=== PATIENT | male | born 1955 | race Hispanic/Latino ===

== ENCOUNTER 2017-03-13 00:49 | Emergency (ER) | payer SELFPAY ==
[~2017-03-13] VITALS: Ht 170.2 cm; Wt 79.4 kg
[~2017-03-13 00:49] MED LIST: BENTYL10 MG PO; MULTI-DAY VITA1 EACH PO; VASOTEC5 MG PO; ZOFRAN ODT4 MG PO
== END 2017-03-13 01:15 | disposition left against medical advice (07) ==
LOC: ER 00:49
DX: I10 Essential (primary) hypertension (principal)

== ENCOUNTER 2017-04-29 14:59 | Emergency (ER) | payer SELFPAY ==
[~2017-04-29] VITALS: Ht 170.2 cm; Wt 79.4 kg
--- OUTSIDE RECORDS SUMMARY | 2017-04-29 15:00 | XMS REPORT ---
[facility] Address Unknown Phone Unavailable Care Team Providers Care Account Classification Clerk Name Role Phone ANNAMARIE CHEW Unavailable Unavailable Problems This patient has no known problems. Allergies, Adverse Reactions, Alerts This patient has no known allergies or adverse reactions. Medications This patient has no known medications. Encounters Start Date/Time End Date/Time Encounter Type Admission Type Attending [facility] Facility Care Department Encounter ID 2017-03-26 15:49:19 2017-03-26 15:49:19 Outpatient [facility] [id number] 2017-03-18 13:21:18 2017-03-18 13:21:18 Outpatient [facility] [id number] 2017-03-18 12:52:06 2017-03-18 12:52:06 Outpatient [facility] [id number] 2017-03-18 00:00:00 2017-03-18 00:00:00 Outpatient [facility] [id number] 2017-03-16 00:00:00 2017-03-16 00:00:00 Outpatient [facility] [id number] 2017-03-16 00:00:00 2017-03-16 00:00:00 Outpatient [facility] [id number] 2017-03-15 15:54:00 2017-03-15 15:54:00 Outpatient [facility] [id number] 2017-01-18 00:00:00 2017-01-18 00:00:00 Outpatient [facility] [id number] 2016-11-09 11:56:42 2016-11-09 11:56:42 Outpatient [facility] [id number] 2016-11-09 10:06:21 2016-11-09 10:06:21 Outpatient [facility] [id number] 2016-10-22 13:16:24 2016-10-22 13:16:24 Outpatient [facility] [id number] 2016-10-13 00:00:00 2016-10-13 00:00:00 Outpatient [facility] [id number] 2016-09-30 13:26:17 2016-09-30 13:26:17 Outpatient [facility] [id number] 2016-09-30 13:07:05 2016-09-30 13:07:05 Outpatient [facility] [id number] Results Test Description Test Time Test Comments Text Results Atomic Results Result Comments CT BRAIN WO [place] [id number] [place] [id number] Patient Name: ÁNGEL EMMANUEL MR #: [id number] : 1955 Age/Sex: 61/M Req # : [id number] Adm Physician: Ordered by: ANNAMARIE CHEW MD Report # : [id number] Location: ER Room/Bed: Procedure: [id number] -[id number] CT/CT BRAIN WO Exam Date: 12/03/16 Exam Time: 0540 REPORT STATUS: Signed EXAMINATION: Head CT without contrast. HISTORY:Dizziness. COMPARISON:CT brain from 08/17/2015. TECHNIQUE: Multidetector axial images were obtained from the foramen magnum to the vertex without contrast. The images were reconstructed using brain and bone algorithms. Thin section brain images were reformatted into coronal and sagittal planes. Intravenous contrast: None IMAGE QUALITY: Acceptable. FINDINGS: Skull/scalp: No abnormality. Parenchyma: No abnormal density. No acute hemorrhage, mass or acute major vascular territorial infarct. Arteries: No density suggestive of thrombosis. Dural sinuses: No abnormal density suggestive of thrombosis. Ventricles: No hydrocephalus or displacement. Extra-axial spaces: No abnormal density. Brain volume: Mild generalized cerebral volume loss. Craniocervical junction: No mass, Chiari malformation, or basilar invagination. Sella: No mass. Paranasal/mastoid sinuses: Imaged portions unremarkable. IMPRESSION: No acute intracranial abnormality. No change since CT head from 08/17/2015. Signed by: Dr. Sabine Castillo M.D. on 12/03/2016 6:06 AM Dictated By: SABINE CASTILLO MD 5 Transcribed By: ROLAND on 12/03/16605 COPY TO: ANNAMARIE CHEW MD
[2017-04-29] MEDS ORDERED: MECLIZINE HCL 12.5 MG TAB PO ONE (15:45)
--- NOTE | 2017-04-29 16:49 | Diagnostic Imaging Report ---
Exam: Head CT without contrast History: Dizziness, headache Comparison studies: Head CT 12/03/2016 and 08/17/2015. Technique: Axial images were obtained from the skull base to the vertex. Coronal and sagittal images reconstructed from the axial data. Intravenous contrast: None Findings: Scalp: No abnormalities. Bones: No fractures, blastic or lytic lesions. Brain sulci: Appropriate for age. Ventricles: Normal in size and configuration. No hydrocephalus. Extra-axial spaces: No masses, no fluid collection. Parenchyma: No abnormal densities. No masses, hemorrhage, acute or chronic vascular insults. Sellar/suprasellar region: No abnormalities. Craniocervical junction: Patent foramen magnum. No Chiari one malformation. Incidental findings: Atherosclerotic calcifications in the carotid siphons. IMPRESSION: 1. No acute intracranial abnormalities. 2. No changes from the previous head CT of 12/03/2016. Signed by: Dr. Tobi Lorenzo M.D. on 04/29/2017 4:46 PM
[2017-04-29 16:50] LABS: BASOPHILS # (AUTO) 0.1 (0.0-0.1); BASOPHILS % 0.9 % (0.0-1.0); EOSINOPHILS # (AUTO) 0.1 (0.0-0.4); EOSINOPHILS % 0.8 % (0.0-6.0); HEMATOCRIT 50.7 % (38.2-49.6); HEMOGLOBIN 17.4 g/dL (14.0-18.0); LYMPHOCYTES # (AUTO) 2.3 (1.0-3.2); LYMPHOCYTES % 26.6 % (18.0-39.1); MEAN CORPUSCULAR HEMOGLOBIN 29.4 pg (28-32); MEAN CORPUSCULAR HGB CONC 34.3 g/dL (31-35); MEAN CORPUSCULAR VOLUME 85.8 fL (81-99); MONOCYTES # (AUTO) 0.5 (0.2-0.8); MONOCYTES % 5.9 % (4.4-11.3); NEUTROPHILS # (AUTO) 5.6 (2.1-6.9); NEUTROPHILS % 65.3 % (38.7-80.0); PLATELET COUNT 234 x10e3/uL (140-360); RED BLOOD COUNT 5.91 x10e6/uL (4.3-5.7); RED CELL DISTRIBUTION WIDTH 12.3 % (11.7-14.4)
[2017-04-29 16:51] LABS: BILIRUBIN,URINE NEGATIVE (NEGATIVE); CLARITY,URINE CLEAR (CLEAR); COLOR,URINE YELLOW (YELLOW); KETONES,URINE NEGATIVE (NEGATIVE); LEUKOCYTE ESTERASE ,URINE NEGATIVE (NEGATIVE); NITRITE,URINE NEGATIVE (NEGATIVE); PROTEIN,URINE DIPSTICK NEGATIVE (NEGATIVE); URINE UROBILINOGEN 0.2 mg/dL (0.2 - 1)
[2017-04-29 17:06] LABS: ALANINE AMINOTRANSFERASE 23 IU/L (0-55); ALBUMIN 4.5 g/dL (3.5-5.0); ALBUMIN/GLOBULIN RATIO 1.5 (0.8-2.0); ALKALINE PHOSPHATASE 82 IU/L (40-150); ANION GAP 12.2 mmol/L (8-16); BLOOD UREA NITROGEN 25 mg/dL (7-26); BUN/CREATININE RATIO 25 (6-25); CARBON DIOXIDE 30 mmol/L (22-29); CHLORIDE 102 mmol/L (98-107); CREATINE KINASE 40 IU/L (30-200); CREATININE, SERUM 1.02 mg/dL (0.72-1.25); EST GLOMERULAR FILTRATION RATE > 60 ML/MIN (60-); GLUCOSE 118 mg/dL (74-118); POTASSIUM 4.2 mmol/L (3.5-5.1); SODIUM 140 mmol/L (136-145)
--- NOTE | 2017-04-29 17:15 | Diagnostic Imaging Report ---
PROCEDURE: CHEST SINGLE (PORTABLE) COMPARISON: Patients [facility], , CHEST SINGLE (PORTABLE), 09/03/2015, 12:40. INDICATIONS: DIZZINESS FINDINGS: LUNGS: No consolidations or edema. PLEURA: No effusions or pneumothorax. HEART \T\ MEDIASTINUM: The heart is within normal size-limits. BONES \T\ SOFT TISSUES: No acute findings. CONCLUSION: No acute thoracic abnormality. Ashok Acosta D.O. Dictated by: Ashok Acosta D.O. on 04/29/2017 at 17:14 Electronically approved by: Ashok Acosta D.O. on 04/29/2017 at 17:14
[2017-04-29 18:04] VITALS: BP 115/65
== END 2017-04-29 18:12 | disposition home or self-care (01) ==
LOC: ER 14:59
DX: R42 Dizziness and giddiness (principal); H81.10 Benign paroxysmal vertigo, unspecified ear; I10 Essential (primary) hypertension
CPT/HCPCS: 36415; 70450; 71045; 80053; 81001; 82550; 82553; 83880; 84484; 85025; 93005; 99284

== ENCOUNTER 2017-09-24 14:15 | Emergency (ER) | payer MEDICARE ==
[~2017-09-24] VITALS: Ht 170.2 cm; Wt 79.4 kg
[2017-09-24] MEDS ORDERED: ASPIRIN 325 MG TAB PO ONE (14:30)
[2017-09-24 14:58] LABS: AMPHETAMINES SCREEN,URINE NEGATIVE (NEGATIVE); BENZODIAZEPINES SCREEN,URINE NEGATIVE (NEGATIVE); PHENCYCLIDINE SCREEN,URINE NEGATIVE (NEGATIVE)
--- NOTE | 2017-09-24 15:11 | Diagnostic Imaging Report ---
EXAMINATION: CHEST SINGLE (NOT PORTABLE) INDICATION: \S\chest pain \S\[id number] \S\1430 COMPARISON: Chest radiograph 04/29/2017 and 09/03/2015 FINDINGS: AP view TUBES and LINES: None. LUNGS: Lungs are moderately inflated. Mild bibasilar atelectasis. There is no evidence of pneumonia or pulmonary edema. PLEURA: No pleural effusion or pneumothorax. HEART AND MEDIASTINUM: The cardiomediastinal silhouette is unremarkable. BONES AND SOFT TISSUES: No acute osseous lesion. Soft tissues are unremarkable. UPPER ABDOMEN: No free air under the diaphragm. IMPRESSION: No acute thoracic abnormality. Signed by: DR. Marlo Cosme MD on 09/24/2017 3:07 PM
[2017-09-24 16:03] LABS: BASOPHILS # (AUTO) 0.1 (0.0-0.1); BASOPHILS % 0.8 % (0.0-1.0); EOSINOPHILS # (AUTO) 0.2 (0.0-0.4); EOSINOPHILS % 1.6 % (0.0-6.0); HEMATOCRIT 48.6 % (38.2-49.6); HEMOGLOBIN 16.5 g/dL (14.0-18.0); LYMPHOCYTES # (AUTO) 2.9 (1.0-3.2); LYMPHOCYTES % 31.7 % (18.0-39.1); MEAN CORPUSCULAR HEMOGLOBIN 30.2 pg (28-32); MONOCYTES # (AUTO) 0.5 (0.2-0.8); MONOCYTES % 5.7 % (4.4-11.3); NEUTROPHILS # (AUTO) 5.5 (2.1-6.9); NEUTROPHILS % 59.9 % (38.7-80.0); PLATELET COUNT 213 x10e3/uL (140-360); RED BLOOD COUNT 5.46 x10e6/uL (4.3-5.7); RED CELL DISTRIBUTION WIDTH 12.6 % (11.7-14.4)
[2017-09-24 16:23] LABS: ALANINE AMINOTRANSFERASE 21 IU/L (0-55); ALBUMIN 4.3 g/dL (3.5-5.0); ALBUMIN/GLOBULIN RATIO 1.3 (0.8-2.0); ALKALINE PHOSPHATASE 74 IU/L (40-150); AMYLASE 51 U/L (25-125); ANION GAP 15.2 mmol/L (8-16); BLOOD UREA NITROGEN 12 mg/dL (7-26); BUN/CREATININE RATIO 12 (6-25); CALCIUM 9.8 mg/dL (8.4-10.2); CARBON DIOXIDE 27 mmol/L (22-29); CHLORIDE 104 mmol/L (98-107); CREATINE KINASE 44 IU/L (30-200); CREATININE, SERUM 0.99 mg/dL (0.72-1.25); EST GLOMERULAR FILTRATION RATE > 60 ML/MIN (60-); GLUCOSE 107 mg/dL (74-118); LIPASE 14 U/L (8-78); POTASSIUM 4.2 mmol/L (3.5-5.1); SODIUM 142 mmol/L (136-145)
[2017-09-24 17:55] LABS: CREATINE KINASE 45 IU/L (30-200)
[2017-09-24 19:56] VITALS: BP 134/90
== END 2017-09-24 20:07 | disposition home or self-care (01) ==
LOC: ER 14:15
DX: R07.9 Chest pain, unspecified (principal); R06.00 Dyspnea, unspecified; R11.0 Nausea; R61 Generalized hyperhidrosis; I10 Essential (primary) hypertension
CPT/HCPCS: 36415; 71045; 80053; 80307; 82150; 82550; 82553; 83690; 84484; 85025; 93005; 99284

== ENCOUNTER 2017-11-07 10:07 | Emergency (ER) | payer SELFPAY ==
[~2017-11-07] VITALS: Ht 170.2 cm; Wt 79.4 kg
[2017-11-07] MEDS ORDERED: ASPIRIN 325 MG TAB PO ONE (10:45)
[2017-11-07 10:59] LABS: BASOPHILS # (AUTO) 0.1 (0.0-0.1); BASOPHILS % 0.9 % (0.0-1.0); EOSINOPHILS # (AUTO) 0.1 (0.0-0.4); EOSINOPHILS % 1.4 % (0.0-6.0); HEMATOCRIT 47.7 % (38.2-49.6); HEMOGLOBIN 16.1 g/dL (14.0-18.0); LYMPHOCYTES # (AUTO) 2.1 (1.0-3.2); LYMPHOCYTES % 37.3 % (18.0-39.1); MEAN CORPUSCULAR HEMOGLOBIN 29.8 pg (28-32); MEAN CORPUSCULAR HGB CONC 33.8 g/dL (31-35); MEAN CORPUSCULAR VOLUME 88.2 fL (81-99); MONOCYTES # (AUTO) 0.5 (0.2-0.8); NEUTROPHILS # (AUTO) 2.9 (2.1-6.9); PLATELET COUNT 192 x10e3/uL (140-360); RED BLOOD COUNT 5.41 x10e6/uL (4.3-5.7); RED CELL DISTRIBUTION WIDTH 12.9 % (11.7-14.4)
[2017-11-07 11:06] LABS: CLARITY,URINE CLEAR (CLEAR); COLOR,URINE YELLOW (YELLOW)
[2017-11-07 11:07] LABS: BILIRUBIN,URINE NEGATIVE (NEGATIVE); KETONES,URINE NEGATIVE (NEGATIVE); LEUKOCYTE ESTERASE ,URINE NEGATIVE (NEGATIVE); NITRITE,URINE NEGATIVE (NEGATIVE); PROTEIN,URINE DIPSTICK NEGATIVE (NEGATIVE); URINE UROBILINOGEN 0.2 mg/dL (0.2 - 1)
[2017-11-07 11:08] LABS: INR 0.9
[2017-11-07 11:09] LABS: BACTERIA,URINE RARE /HPF; EPITHELIAL CELLS,URINE RARE /LPF; RBC,URINE 0-5 /HPF (0-5); WBC,URINE (MAN) 0-5 /HPF (0-5)
[2017-11-07 11:17] LABS: ALANINE AMINOTRANSFERASE 25 IU/L (0-55); ALBUMIN 4.4 g/dL (3.5-5.0); ALBUMIN/GLOBULIN RATIO 1.3 (0.8-2.0); ALKALINE PHOSPHATASE 84 IU/L (40-150); AMYLASE 48 U/L (25-125); ANION GAP 13.7 mmol/L (8-16); BLOOD UREA NITROGEN 13 mg/dL (7-26); BUN/CREATININE RATIO 13 (6-25); CALCIUM 9.8 mg/dL (8.4-10.2); CARBON DIOXIDE 28 mmol/L (22-29); CHLORIDE 102 mmol/L (98-107); CREATINE KINASE 217 IU/L (30-200); EST GLOMERULAR FILTRATION RATE > 60 ML/MIN (60-); GLUCOSE 119 mg/dL (74-118); LIPASE 13 U/L (8-78); MAGNESIUM 2.2 MG/DL (1.3-2.1); POTASSIUM 3.7 mmol/L (3.5-5.1); SODIUM 140 mmol/L (136-145)
--- NOTE | 2017-11-07 11:32 | Diagnostic Imaging Report ---
EXAMINATION: CHEST 2 VIEWS INDICATION: Neck and shoulder pain on the left for 2 days \S\ORDER PLACED BY MD \S\[id number] \S\1100 \S\Y COMPARISON: Chest radiograph 09/24/2017, 09/03/2015, and 08/17/2015 FINDINGS: PA and lateral views TUBES and LINES: None. LUNGS: Lungs are well inflated. Left lower lobe/lingula linear airspace opacity with volume loss has progressed since 2016. There is no evidence of pneumonia or pulmonary edema. PLEURA: No pleural effusion or pneumothorax. HEART AND MEDIASTINUM: The cardiomediastinal silhouette is unremarkable. BONES AND SOFT TISSUES: No acute osseous lesion. Soft tissues are unremarkable. UPPER ABDOMEN: No free air under the diaphragm. Persistent mild elevation of the right hemidiaphragm. IMPRESSION: Progressive volume loss in the left lower lobe and lingula when compared to 2016. Given patient's symptoms, consider further evaluation with CT chest with IV contrast to exclude intraluminal lesion. Signed by: Dr. Meghan Parker M.D. on 11/07/2017 11:27 AM
--- NOTE | 2017-11-07 11:35 | Diagnostic Imaging Report ---
Cervical Spine, 6 views HISTORY: Pain. Cervical radiculopathy COMPARISON: None. FINDINGS: Limited sensitivity for detection of subtle fractures and ligamentous abnormalities. On the lateral view, the cervical spine is visualized from the skull base to . The alignment is normal. No acute displaced fracture involving the visualized cervical spine. Disc Spaces and Uncovertebral Joints: Unremarkable. Facets: The facet joints are unremarkable. IMPRESSION: No acute radiographic abnormality. Signed by: Dr. Meghan Parker M.D. on 11/07/2017 11:30 AM
[2017-11-07] MEDS ORDERED: SODIUM CHLORIDE 0.9% 100 ML 100 ML ONE (13:29)
[2017-11-07] MEDS ORDERED: IOPAMIDOL 370 MG/ML 200 ML INFUS..BTL INJ ONE (13:30)
--- NOTE | 2017-11-07 13:55 | Diagnostic Imaging Report ---
EXAM: CT Chest WITH contrast 11/07/2017 12:10 PM INDICATION: \S\rule out PE \S\[id number] \S\1240 COMPARISON: Chest radiograph 11/07/2017 and 08/17/2015 TECHNIQUE: Spiral CT images of the chest were performed from the lung apices through the level of the adrenal glands after the IV contrast administration. Thin section reconstructions were obtained with special concentration on the pulmonary arteries. IV CONTRAST: 100 mL of Isovue-370 ORAL CONTRAST: None COMPLICATIONS: None RADIATION DOSE: Total DLP: 524.7 mGy*cm Estimated effective dose: (DLP x 0.015 x size factor) mSv CTDIvol has been reviewed. It is below the limits set by the Radiation Protocol Committee (RPC). FINDINGS: LINES/ TUBES: None. PULMONARY ARTERIES: No filling defects are identified in the main, right or left pulmonary arteries to their segmental and subsegmental levels, to suggest pulmonary embolism. The main pulmonary artery is normal in size. LUNGS AND AIRWAYS: Diffuse peribronchial wall thickening in both lower lobes. Patchy groundglass opacities in both lower lobes without consolidations, suspicious pulmonary nodules or masses. No honeycombing. No endobronchial lesions. No bronchiectasis. PLEURA: The pleural spaces are clear. Predominant pleural fat in both posterior lower lobes measuring up to 1.9 cm in thickness on the left and 1.3 cm on the right suggestive of breakdown and extrapleural fat versus benign pleural lipomas. HEART AND MEDIASTINUM: Anterior mediastinal lipomatosis, benign finding. The thyroid gland is normal. Few noncalcified mediastinal and bilateral hilar enlarged lymph nodes. For example, there is a 1.5 cm subcarinal lymph node and a 1.1 cm right proximal hilar lymph node. The heart is normal in size. There is no pericardial effusion. The thoracic aorta is normal. UPPER ABDOMEN: Redundant perihepatic mesenteric fat. BONES: Degenerative changes of the thoracic spine. SOFT TISSUES: Unremarkable. IMPRESSION: 1. No pulmonary embolism. 2. CT findings suggestive of acute bronchitis. 3. Mediastinal and bilateral hilar lymphadenopathy may be reactive. 4. Recommend follow-up chest radiograph in [address] chest in 3 months to demonstrate resolution and exclude underlying pathology, including inflammatory processes such as sarcoidosis or a more chronic process such as interstitial lung disease. Signed by: Dr. Meghan Parker M.D. on 11/07/2017 1:50 PM
[2017-11-07] MEDS ORDERED: CYCLOBENZAPRINE5 MG PO (14:49)
[2017-11-07] MEDS ORDERED: AZITHROMYCIN250 MG PO (14:49)
== END 2017-11-07 15:30 | disposition home or self-care (01) ==
LOC: ER 10:07
DX: M54.2 Cervicalgia (principal); M54.12 Radiculopathy, cervical region; S16.1XXA Strain of muscle, fascia and tendon at neck level, initial encounter; J20.9 Acute bronchitis, unspecified; I10 Essential (primary) hypertension; D86.9 Sarcoidosis, unspecified; Z87.891 Personal history of nicotine dependence
CPT/HCPCS: 36415; 71046; 71260; 72050; 80053; 81001; 82150; 82550; 82553; 83690; 83735; 83880; 84484; 85025; 85610; 85730; 87086; 93005; 99284; Q9967

== ENCOUNTER 2018-02-11 20:40 | Emergency (ER) | payer SELFPAY ==
[~2018-02-11] VITALS: Ht 170.2 cm; Wt 79.4 kg
[~2018-02-11 20:40] MED LIST changes: +AZITHROMYCIN250 MG PO; +CYCLOBENZAPRINE5 MG PO
--- OUTSIDE RECORDS SUMMARY | 2018-02-11 20:43 | XMS REPORT | Clinical Summary ---
Author Author [facility] Organization [facility] Address Unknown Phone Unavailable Care Team Providers Care Associate Dean Of Women Name Role Phone Audra Benavides MD PCP Allergies Comments Active Allergy Reactions Severity Noted Date Penicillins Rash Low 05/30/2008 Medications End Date Status Medication Sig Dispensed Refills Start Date Active piroxicam (FELDENE) 10 mg Take 1 20 capsule 0 capsuleIndications: Pain capsule by 8 in joint, multiple sites mouth daily. Active ergocalciferol (VITAMIN Take 1 12 capsule 1 D2) 50,000 unit capsule by 8 capsuleIndications: mouth weekly. Vitamin D deficiency Active polyethylene glycol Add lukewarm 4000 mL 0 (GOLYTELY) [id number] drinking 8 -5.86 gram oral water to the solutionIndications: fill del (4 Positive fecal occult liters) and blood test shake. Drink as directed by your doctor.. Active lisinopril (PRINIVIL) 20 Take 1 tablet 90 tablet 1 mg tabletIndications: by mouth 8 Essential hypertension, daily. benign Active polyethylene glycol Add lukewarm 4000 mL 0 (GOLYTELY) 236-22.74-6.74 drinking 8 -5.86 gram oral water to the solutionIndications: fill del (4 Occult blood in stools liters) and shake. Drink as directed by your doctor.. Active polyethylene glycol Mix 17 grams 527 g 0 (MIRALAX) 17 gram/dose into 4 to 8 8 oral powderIndications: ounces of Occult blood in stools water, juice, soda, tea or coffee and drink as directed, one time a day. 05/25/2017 Discontinued ergocalciferol (VITAMIN Take 1 12 capsule 0 D2) 50,000 unit capsule by 7 capsuleIndications: mouth weekly. Vitamin D deficiency 05/21/2017 Discontinued lisinopril (PRINIVIL) 20 Take 1 tablet 30 tablet 2 mg tabletIndications: by mouth 7 Essential hypertension, daily. benign 06/21/2017 Discontinued ciclesonide (ZETONNA) 37 Use 1 [place] 6.1 g 1 mcg/actuation nasal HFA in each 7 inhalerIndications: nostril Allergic rhinitis, daily. unspecified chronicity, unspecified seasonality, unspecified trigger 05/25/2017 Discontinued lisinopril (PRINIVIL) 20 Take 1 tablet 30 tablet 2 mg tabletIndications: by mouth 8 Essential hypertension, daily. benign 10/13/2017 Discontinued lisinopril (PRINIVIL) 20 Take 1 tablet 90 tablet 1 mg tabletIndications: by mouth 8 Essential hypertension, daily. benign Active Problems Problem Noted Date Positive fecal occult blood test 05/25/2017 Syphilis, unspecified 11/06/2016 Essential hypertension, benign 09/30/2016 Prediabetes 07/09/2015 Chest pain 12/14/2012 Generalized abdominal pain 02/18/2012 GERD (gastroesophageal reflux disease) 01/05/2012 ED (erectile dysfunction) of non-organic origin 02/11/2011 Dyslipidemia 11/12/2010 Sprain, low back 10/08/2010 Sarcoidosis Overview: Echo WNL 07/25 PFTs-mild restrictive disease ct done Onychomycosis Encounters Care Team Description Date Type Specialty Marci Brooks NP Occult blood in stools (Primary Dx) 12/14/2017 Office Visit Gastroenterology Ang Galarza MD Encounter for vaccination (Primary Dx) 12/08/2017 Office Visit Pulmonology Esther Ramirez RN Colonoscopy 11/29/2017 Telephone Audi Kapadia MD Positive fecal occult blood test 11/21/2017 Orders Only Family Practice Audra Benavides MD 10/14/2017 Ancillary Radiology Procedure Audra Benavides MD Exposure to syphilis (Primary Dx); Essential hypertension, benign; Sarcoidosis 10/13/2017 Office Visit Family Practice Jacqueline Young Interpretation 10/13/2017 Telephone Denise Scruggs Utilization Management 07/26/2017 Telephone Audi Kapadia MD Cough (Primary Dx) 06/21/2017 Office Visit Family Practice Audi Kapadia MD Cough 06/09/2017 Ancillary Radiology Procedure Audi Kapadia MD Cough (Primary Dx) 06/09/2017 Office Visit Family Practice Audi Kapadia MD Positive fecal occult blood test (Primary Dx); Vitamin D deficiency; Essential hypertension, benign; Need for zoster vaccination 05/25/2017 Office Visit Family Practice Audi Kapadia MD Essential hypertension, benign 05/21/2017 Refill Family Practice Audi Kapadia MD Other Follow-up 03/24/2017 Telephone [facility] Practice 03/18/2017 Ancillary Radiology Procedure Audra Benavides MD Routine physical examination (Primary Dx); Screening for malignant neoplasm of colon; Pain in joint, multiple sites; Fecal occult blood test positive 03/15/2017 Office Visit Family Practice Igor Hood Interpretation 03/15/2017 Telephone after 02/10/2017 Immunizations Name Dates Previously Given Next Due Herpes Zoster Vaccine In 05/25/2017 (Deferred: Patient Refused) Clinic TDap (Tetanus Toxoid, 10/13/2017 (Deferred: Patient already had this Reduced Diphtheria Toxoid immunization - Received in 2013 per patient) And Acellular Pertussis, Absorbed) Zoster Vaccine (Shingrix) 10/13/2017 (Deferred: Vaccine Unavailable) Family History Medical History Relation Name Comments Other Brother PT HAS NO FAMILY HISTORY OF THESE DIAGNOSIS Relation Name Status Comments Brother Father Mother Social History Date Tobacco Use Types Packs/Day Years Used Quit: 05/05/2007 Former Smoker Cigarettes Smokeless Tobacco: Never Used Tobacco Cessation: Counseling Given: Yes Comments: quit 2008 Alcohol Use Drinks/Week oz/Week Comments No quit 2008 Sex Assigned at Date Recorded Not on file Industry Job Start Date Occupation Not on file Not on file Not on file Travel End Travel History Travel Start No recent travel history available. Last Filed Vital Signs Time Taken Vital Sign Reading 12/14/2017 10:10 AM CDT Blood Pressure 129/76 12/14/2017 10:10 AM CDT Pulse 67 12/14/2017 10:10 AM CDT Temperature 36.4 C (97.6 F) 12/14/2017 10:10 AM CDT Respiratory Rate 18 - Oxygen Saturation - - Inhaled Oxygen - Concentration 12/14/2017 10:10 AM CDT Weight 77.1 kg (169 lb 14.4 oz) 12/14/2017 10:10 AM CDT Height 170.2 cm (5' 7") 12/14/2017 10:10 AM CDT Body Mass Index 26.61 Plan of Treatment Care Team Description Date Type Specialty Audra Benavides MD [facility] [address] [id number] F/U HTN, meds refills. 02/16/2018 Office Visit Family Practice Health Maintenance Due Date Last Done Comments IMM Influenza Seasonal 11/15/2017Nov to April (>/=19 yrs) Colorectal Cancer Scrn 03/26/2018 03/26/2017, 05/05/2016, 06/18/2008 Annual (FIT/FOBT) Age 50 to 75 Goals Goal Patient Associated Recent Progress Patient-Stat Author Goal Type Problems ed? 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 Comments Procedure Name Priority Date/Time Associated Diagnosis XRAY CHEST 2 VIEWS Routine 10/14/2017 Sarcoidosis 9:20 AM CDT HEMOGLOBIN A1C Routine 10/14/2017 Essential hypertension, 9:08 AM CDT benign SYPHILIS MONITOR FOR Routine 10/14/2017 Exposure to syphilis TREATMENT 9:08 AM CDT LIVER PROFILE Routine 10/14/2017 Essential hypertension, 9:08 AM CDT benign BASIC METABOLIC PANEL Routine 10/14/2017 Essential hypertension, 9:08 AM CDT benign CBC/DIFF Routine 10/14/2017 Essential hypertension, 9:08 AM CDT benign UA CHEMISTRIES Routine 10/13/2017 Essential hypertension, 4:17 PM CDT benign XRAY CHEST 2 VIEWS Routine 06/09/2017 Cough 2:14 PM CDT OCCULT BLOOD ICT Routine 03/26/2017 Screening for malignant 6:00 AM CAGE CASHIER neoplasm of colon UA CHEMISTRIES Routine 03/18/2017 Routine physical 1:18 PM CAGE CASHIER examination VIT D, 25-HYDROXY Routine 03/18/2017 Routine physical 1:17 PM CAGE CASHIER examination LIVER PROFILE Routine 03/18/2017 Routine physical 1:17 PM CAGE CASHIER examination BASIC METABOLIC PANEL Routine 03/18/2017 Routine physical 1:17 PM CAGE CASHIER examination CBC/DIFF Routine 03/18/2017 Routine physical 1:17 PM CAGE CASHIER examination XRAY KNEE 1 OR 2 VIEWS Routine 03/18/2017 Pain in joint, multiple (LIMITED-AP/LAT) 1:05 PM CAGE CASHIER sites XRAY SHOULDER 2 VIEWS MIN Routine 03/18/2017 Pain in joint, multiple 1:05 PM CAGE CASHIER sites XRAY ELBOW 2 VIEWS MIN Routine 03/18/2017 Pain in joint, multiple 1:05 PM CAGE CASHIER sites HEMOCCULT KIT FOR Routine 03/15/2017 Screening for malignant SPECIMEN COLLECTION AT 4:24 PM CAGE CASHIER neoplasm of colon HOME after 02/10/2017 Results * XRAY CHEST 2 VIEWS (10/14/2017 9:20 AM CDT) Only the most recent of 2 results within the time period is included. Impressions Performed At IMPRESSION: [facility] No acute cardiac or pulmonary pathology is identified in the chest. Signed By: Afshin Crump MD, 10/14/2017 9:24 AM Narrative Performed At EXAM: XR CHEST 2 VIEWS [facility] DATE:10/14/2017 9:17 AM INDICATION: sarcoidosis chest Sarcoidosis COMPARISON: 06/09/2017 TECHNIQUE: PA and lateral views DISCUSSION: Lines/tubes/devices: None. Heart and mediastinum: The cardiac silhouette is within normal limits in its transverse diameter. The mediastinal contours are not widened. Lungs and pleura: The lung crook are clear of consolidation or effusion. Pulmonary vascularity is normal.The linear stranding evidently representing atelectasis in the left lower lung field has resolved when compared with a study done on 06/09/2017. Bones/soft tissues: There is a mild kyphotic curvature of the dorsal spine. Upper abdomen: Unremarkable Procedure Note Interface, Rad/Mammog In - 10/14/2017 9:29 AM CDT EXAM: XR CHEST 2 VIEWS DATE: 10/14/2017 9:17 AM INDICATION: sarcoidosis chest Sarcoidosis COMPARISON: 06/09/2017 TECHNIQUE: PA and lateral views DISCUSSION: Lines/tubes/devices: None. Heart and mediastinum: The cardiac silhouette is within normal limits in its transverse diameter. The mediastinal contours are not widened. Lungs and pleura: The lung crook are clear of consolidation or effusion. Pulmonary vascularity is normal.The linear stranding evidently representing atelectasis in the left lower lung field has resolved when compared with a study done on 06/09/2017. Bones/soft tissues: There is a mild kyphotic curvature of the dorsal spine. Upper abdomen: Unremarkable IMPRESSION IMPRESSION: No acute cardiac or pulmonary pathology is identified in the chest. Signed By: Afshin Crump MD, 10/14/2017 9:24 AM Performing Organization Address [facility] Phone Number SMS * HEMOGLOBIN A1C (10/14/2017 9:08 AM CDT) Hemoglobin A1c 5.9 4.3 - 6.1 % BT DIAGNOSTIC IMMUNOLOGY Est Average 122.6 mg/dL BT DIAGNOSTIC Gluc IMMUNOLOGY Specimen Blood Performing Organization Address [facility] Phone Number MISYS BT DIAGNOSTIC IMMUNOLOGY * SYPHILIS MONITOR FOR TREATMENT (10/14/2017 9:08 AM CDT) RPR Nonreactive NR Titer BT DIAGNOSTIC IMMUNOLOGY Specimen Blood Performing Organization Address [facility] Phone Number MISYS BT DIAGNOSTIC IMMUNOLOGY * LIVER PROFILE (10/14/2017 9:08 AM CDT) Only the most recent of 2 results within the time period is included. T Protein 6.6 6.0 - 8.3 g/dL BT MAIN-STATION 1 Albumin 4.4 4.2 - 5.5 g/dL BT MAIN-STATION 1 T Bilirubin 0.6 0.2 - 1.2 mg/dL BT MAIN-STATION 1 Alk Phos 76 34 - 104 U/L BT MAIN-STATION 1 AST 15 13 - 39 U/L BT MAIN-STATION 1 ALT 17 7 - 52 U/L BT MAIN-STATION 1 D Bilirubin 0.1 0.0 - 0.2 mg/dL BT MAIN-STATION 1 Specimen Blood Performing Organization Address City/State/Zipcode Phone Number MISYS BT MAIN-STATION 1 * CBC/DIFF (10/14/2017 9:08 AM CDT) Only the most recent of 2 results within the time period is included. WBC 6.0 4.5 - 12.0 K/uL BT MAIN-STATION 2 RBC 5.22 4.60 - 6.20 M/uL BT MAIN-STATION 2 Hemoglobin 15.7 14.0 - 18.0 g/dL BT MAIN-STATION 2 Hematocrit 47.4 40.0 - 54.0 % BT MAIN-STATION 2 MCV 91 82 - 92 fL BT MAIN-STATION 2 MCH 30.1 27.0 - 31.0 pg BT MAIN-STATION 2 MCHC 33.1 32.0 - 36.0 g/dL BT MAIN-STATION 2 RDW 40.7 35.1 - 43.9 fL BT MAIN-STATION 2 Platelet 202 150 - 400 K/uL BT MAIN-STATION 2 Mean Platelet 11.5 9.4 - 12.4 fL BT MAIN-STATION Volume 2 Percent NRBC 0.0 BT MAIN-STATION 2 Absolute NRBC 0.00 BT MAIN-STATION 2 Neutrophil 53.3 34.0 - 67.9 % BT MAIN-STATION 2 Lymphocyte 35.7 21.8 - 50.0 % BT MAIN-STATION 2 Monocyte 6.5 5.3 - 12.0 % BT MAIN-STATION 2 Eosinophil 2.8 0.8 - 5.0 % BT MAIN-STATION 2 Basophil 1.0 0.2 - 1.2 % BT MAIN-STATION 2 Pct Immat Gran 0.7 (H) 0.0 - 0.5 BT MAIN-STATION 2 Neutrophil, Abs 3.22 1.78 - 5.36 K/uL BT MAIN-STATION 2 Lymphocyte, Abs 2.15 1.32 - 3.57 K/uL BT MAIN-STATION 2 Monocyte, Abs 0.39 0.30 - 0.82 K/uL BT MAIN-STATION 2 Eosinophil, Abs 0.17 0.04 - 0.54 K/uL BT MAIN-STATION 2 Basophil, Abs 0.06 0.01 - 0.08 K/uL BT MAIN-STATION 2 Absol Immat 0.04 (H) 0.00 - 0.03 K/uL BT MAIN-STATION Gran 2 Specimen Blood Performing Organization Address City/[facility] Phone Number MISYS BT MAIN-STATION 2 * BASIC METABOLIC PANEL (10/14/2017 9:08 AM CDT) Only the most recent of 2 results within the time period is included. CO2 30 21 - 31 mmol/L BT MAIN-STATION 1 Chloride 104 98 - 107 mmol/L BT MAIN-STATION 1 Potassium 4.1 3.5 - 5.1 mmol/L BT MAIN-STATION 1 Sodium 144 136 - 145 mmol/L BT MAIN-STATION 1 Glucose 146 (H) 70 - 110 mg/dL BT MAIN-STATION 1 Urea Nitrogen 11 7 - 25 mg/dL BT MAIN-STATION 1 Creatinine 1.00 0.7 - 1.3 mg/dL BT MAIN-STATION 1 Anion Gap 10 BT MAIN-STATION 1 Calcium 9.2 8.6 - 10.3 mg/dL BT MAIN-STATION 1 GFR, Estimated >60 mL/min/1.73 m2 BT MAIN-STATION 1 GFR, Estim, >60 mL/min/1.73 m2 BT MAIN-STATION Afr-Am 1 Specimen Blood Performing Organization Address [facility] Phone Number MISYS BT MAIN-STATION 1 * UA CHEMISTRIES (10/13/2017 4:17 PM CDT) Only the most recent of 2 results within the time period is included. Color Yellow BT MAIN-STATION 3 Clarity Clear BT MAIN-STATION 3 Spec [place] 1.020 1.001 - 1.035 BT MAIN-STATION 3 pH 5.0 5 - 8 BT MAIN-STATION 3 Protein Negative NEG BT MAIN-STATION 3 Glucose Negative NEG BT MAIN-STATION 3 Ketone Negative NEG BT MAIN-STATION 3 Bilirubin Negative NEG BT MAIN-STATION 3 Nitrate Negative NEG BT MAIN-STATION 3 Urobilinogen <1.0 0.2 - 1.0 EU/dL BT MAIN-STATION 3 Leukocyte Negative NEG BT MAIN-STATION 3 Blood Negative NEG BT MAIN-STATION 3 Specimen Urine Performing Organization Address [facility] Phone Number Prosens[employer] MAIN-STATION 3 * OCCULT BLOOD ICT (03/26/2017 6:00 AM CAGE CASHIER) Pathologist [facility] Occult Blood Positive (A) NEG [facility] ICT Specimen Stool Performing Organization Address [facility] Phone Number [facility] * VIT D, 25-HYDROXY (03/18/2017 1:17 PM CAGE CASHIER) Vit D, 26.5 (L) 30 - 100 ng/mL BT DIAGNOSTIC 25-Hydroxy Comment: IMMUNOLOGY Vitamin D deficiency has been defined by the [place] of Medicine and Endocrine Society guideline as a level of serum 25-OH Vitamin D less than 20 ng/mL. The Endocrine Society further defines Vitamin D insufficiency as a level between 21 and 29 ng/mL and sufficiency as a level between 30 and 100 ng/mL. Performing Organization Address City/State/Zipcode Phone Number MISYS BT DIAGNOSTIC IMMUNOLOGY * XRAY KNEE 1 OR 2 VIEWS (LIMITED-AP/LAT) (03/18/2017 1:05 PM CAGE CASHIER) Impressions Performed At IMPRESSION: SMS 1.Small left knee joint effusion. 2.Otherwise, no acute, radiographic abnormality of the left knee is identified. Dictated By: Ralph Fernandez MD, 03/18/2017 3:01 PM I have reviewed the study and agree with the findings in this report. Signed By: Avinash Orosco MD, 03/18/2017 3:39 PM Narrative Performed At EXAM: XR LEFT KNEE 2 VIEW SMS DATE:03/18/2017 at 1257 hours. INDICATION: knee pain. Pain in joint, multiple sites COMPARISON: None available. TECHNIQUE:AP and lateral left knee radiographs. DISCUSSION: No acute fracture or malalignment is identified. Knee joint spaces are overall preserved on these non-weightbearing views. A small knee joint effusion is present. No acute soft tissue abnormality is identified. Procedure Note Interface, Rad/Mammog In - 03/18/2017 3:44 PM CAGE CASHIER EXAM: XR LEFT KNEE 2 VIEW DATE: 03/18/2017 at 1257 hours. INDICATION: knee pain. Pain in joint, multiple sites COMPARISON: None available. TECHNIQUE: AP and lateral left knee radiographs. DISCUSSION: No acute fracture or malalignment is identified. Knee joint spaces are overall preserved on these non-weightbearing views. A small knee joint effusion is present. No acute soft tissue abnormality is identified. IMPRESSION IMPRESSION: 1. Small left knee joint effusion. 2. Otherwise, no acute, radiographic abnormality of the left knee is identified. Dictated By: Ralph Fernandez MD, 03/18/2017 3:01 PM I have reviewed the study and agree with the findings in this report. Signed By: Avinash Orosco MD, 03/18/2017 3:39 PM Performing Organization Address [facility] Phone Number SMS * XRAY ELBOW 2 VIEWS MIN (03/18/2017 1:05 PM CAGE CASHIER) Impressions Performed At IMPRESSION: SMS No acute, radiographic abnormality of the left elbow. Dictated By: Ralph Fernandez MD, 03/18/2017 3:10 PM I have reviewed the study and agree with the findings in this report. Signed By: Avinash Orosco MD, 03/18/2017 3:40 PM Narrative Performed At EXAM: XR LEFT ELBOW 2 VIEWS SMS DATE:03/18/2017 at 1300 hours. INDICATION: 2-3 weeks elbow pain. Pain in joint, multiple sites COMPARISON: None available. TECHNIQUE: AP and lateral left elbow radiographs. DISCUSSION: No acute fracture or malalignment is identified. A benign-appearing, small ovoid calcification is seen medial to the medial epicondyle. This is nonspecific, however could represent sequela of a remote avulsion injury. No elbow joint effusion is detected. No acute soft tissue abnormality is identified. Procedure Note Interface, Rad/Mammog In - 03/18/2017 3:45 PM CAGE CASHIER EXAM: XR LEFT ELBOW 2 VIEWS DATE: 03/18/2017 at 1300 hours. INDICATION: 2-3 weeks elbow pain. Pain in joint, multiple sites COMPARISON: None available. TECHNIQUE: AP and lateral left elbow radiographs. DISCUSSION: No acute fracture or malalignment is identified. A benign-appearing, small ovoid calcification is seen medial to the medial epicondyle. This is nonspecific, however could represent sequela of a remote avulsion injury. No elbow joint effusion is detected. No acute soft tissue abnormality is identified. IMPRESSION IMPRESSION: No acute, radiographic abnormality of the left elbow. Dictated By: Ralph Fernandez MD, 03/18/2017 3:10 PM I have reviewed the study and agree with the findings in this report. Signed By: Avinash Orosco MD, 03/18/2017 3:40 PM Performing Organization Address [facility] Phone Number SMS * XRAY SHOULDER 2 VIEWS MIN (03/18/2017 1:05 PM CAGE CASHIER) Impressions Performed At IMPRESSION: SMS 1.Moderate left rotator cuff calcific tendinopathy. 2.No acute, radiographic abnormality of the left shoulder. Dictated By: Ralph Fernandez MD, 03/18/2017 3:06 PM I have reviewed the study and agree with the findings in this report. Signed By: Avinash Orosco MD, 03/18/2017 3:40 PM Narrative Performed At EXAM: XR LEFT SHOULDER 2 VIEWS SMS DATE: 03/18/2017 at 1304 hours. INDICATION: Shoulder pain for several weeks. Pain in joint, multiple sites. COMPARISON: None available. TECHNIQUE: AP internal rotation and external rotation views of the left shoulder. DISCUSSION: No acute fracture is identified. The acromioclavicular joint and glenohumeral joint remain aligned on these frontal-only views. There is no subacromial narrowing. No acute soft tissue abnormality is identified. Faint calcifications seen outline the rotator cuff tendons about the acromiohumeral interval. Procedure Note Interface, Rad/Mammog In - 03/18/2017 3:45 PM CAGE CASHIER EXAM: XR LEFT SHOULDER 2 VIEWS DATE: 03/18/2017 at 1304 hours. INDICATION: Shoulder pain for several weeks. Pain in joint, multiple sites. COMPARISON: None available. TECHNIQUE: AP internal rotation and external rotation views of the left shoulder. DISCUSSION: No acute fracture is identified. The acromioclavicular joint and glenohumeral joint remain aligned on these frontal-only views. There is no subacromial narrowing. No acute soft tissue abnormality is identified. Faint calcifications seen outline the rotator cuff tendons about the acromiohumeral interval. IMPRESSION IMPRESSION: 1. Moderate left rotator cuff calcific tendinopathy. 2. No acute, radiographic abnormality of the left shoulder. Dictated By: Ralph Fernandez MD, 03/18/2017 3:06 PM I have reviewed the study and agree with the findings in this report. Signed By: Avinash Orosco MD, 03/18/2017 3:40 PM Performing Organization Address City/State/Zipcode Phone Number SMS after 02/10/2017 Insurance Type Payer Benefit Subscriber ID Effective Phone Address Plan / Dates Group [employer] PLAN [employer] PLAN xxxxxx [id number] [id number] [place] [address]
[2018-02-11 22:11] LABS: CLARITY,URINE CLEAR (CLEAR); COLOR,URINE YELLOW (YELLOW)
[2018-02-11 22:13] LABS: BILIRUBIN,URINE NEGATIVE (NEGATIVE); KETONES,URINE NEGATIVE (NEGATIVE); LEUKOCYTE ESTERASE ,URINE NEGATIVE (NEGATIVE); NITRITE,URINE NEGATIVE (NEGATIVE); PROTEIN,URINE DIPSTICK NEGATIVE (NEGATIVE); URINE UROBILINOGEN 0.2 mg/dL (0.2 - 1)
[2018-02-11 22:27] LABS: MUCUS,URINE RARE (RARE); WBC,URINE (MAN) 0-5 /HPF (0-5)
--- NOTE | 2018-02-11 22:58 | Diagnostic Imaging Report ---
EXAM: CHEST 2 VIEWS, PA and lateral INDICATION: Back pain COMPARISON: PA and lateral view of the chest November 07, 2017 FINDINGS: LINES/TUBES: None LUNGS: No consolidations or edema. Stable scarring left lung base. PLEURA: No effusions or pneumothorax. HEART AND MEDIASTINUM: Normal size and contour. BONES AND SOFT TISSUES: No acute findings. IMPRESSION: No acute thoracic abnormality. Signed by: Dr. Binta Bennett M.D. on 02/11/2018 10:54 PM
--- NOTE | 2018-02-11 22:59 | Diagnostic Imaging Report ---
EXAM: LUMBAR SPINE, AP, lateral, bilateral oblique and coned lateral view INDICATION: Back pain COMPARISON: None FINDINGS: BONES: Five lumbar-type vertebral bodies. The alignment is within normal limits. No acute displaced fractures. No lytic or blastic lesions. DISCS: The disc-spaces are well-maintained. Mild anterior osteophytes L4 and L5. JOINTS: The facet joints and sacroiliac joints are unremarkable. SOFT TISSUES: Mild calcifications of the abdominal aorta. IMPRESSION: No acute lumbar spine radiographic findings. Mild degenerative changes L4/L5. Signed by: Dr. Binta Bennett M.D. on 02/11/2018 10:56 PM
== END 2018-02-12 04:39 | disposition home or self-care (01) ==
LOC: ER 20:40
DX: M54.5 Low back pain (principal); M47.896 Other spondylosis, lumbar region; I10 Essential (primary) hypertension; D86.9 Sarcoidosis, unspecified
CPT/HCPCS: 71046; 72110; 81001; 99283

== ENCOUNTER 2018-02-14 00:51 | Emergency (ER) | payer MEDICARE ==
[~2018-02-14] VITALS: Ht 170.2 cm; Wt 79.4 kg
[2018-02-14] MEDS ORDERED: ACETAMINOPHEN/CODEINE 300MG - 30MG TAB PO ONE (02:15)
[2018-02-14 03:02] VITALS: BP 106/69
== END 2018-02-14 02:30 | disposition home or self-care (01) ==
LOC: ER 00:51
DX: R05 Cough (principal); B34.9 Viral infection, unspecified; I10 Essential (primary) hypertension; D86.9 Sarcoidosis, unspecified
CPT/HCPCS: 99282

== ENCOUNTER 2018-08-06 00:36 | Emergency (ER) | payer SELFPAY ==
[~2018-08-06] VITALS: Ht 170.2 cm; Wt 79.4 kg
--- OUTSIDE RECORDS SUMMARY | 2018-08-06 00:40 | XMS REPORT | Clinical Summary ---
Author Author [facility] Organization [facility] Address Unknown Phone Unavailable Care Team Providers Care Code Enforcement Inspector Name Role Phone Audi Kapadia MD PCP Allergies Comments Active Allergy Reactions [...] weekly. Vitamin D deficiency Active polyethylene glycol Mix 17 grams 527 g 0 (MIRALAX) 17 gram/dose into 4 to 8 8 oral powderIndications: ounces of Occult blood in stools water, juice, soda, tea or coffee and drink as directed, one time a day. Active lisinopril (PRINIVIL) 20 Take 1 tablet 90 tablet 3 mg tabletIndications: by mouth 9 Essential hypertension, daily. benign Active fluocinonide (LIDEX) 0.05 Apply to 30 g 0 % ointmentIndications: affected area 9 Nummular eczema 2 times daily. 10/13/2017 Discontinued lisinopril (PRINIVIL) 20 Take 1 tablet 90 tablet 1 mg tabletIndications: by mouth 8 Essential hypertension, daily. benign 03/16/2018 Discontinued polyethylene glycol Add lukewarm 4000 mL 0 (GOLYTELY) 236-22.74-6.74 drinking 8 -5.86 gram oral water to the solutionIndications: fill del (4 Positive fecal occult liters) and blood test shake. Drink as directed by your doctor.. 02/16/2018 Discontinued lisinopril (PRINIVIL) 20 Take 1 tablet 90 tablet 1 mg tabletIndications: by mouth 8 Essential hypertension, daily. benign 03/16/2018 Discontinued polyethylene glycol Add lukewarm 4000 mL 0 (GOLYTELY) 236-22.74-6.74 drinking 8 -5.86 gram oral water to the solutionIndications: fill del (4 Occult blood in stools liters) and shake. Drink as directed by your doctor.. 03/22/2018 Discontinued acetaminophen with Take by 0 codeine (TYLENOL-CODEINE mouth. #3 OR)Indications: [place] baltazar tableta por via oral cada seis horas breanna necesario para dolor de tos 03/22/2018 Discontinued azithromycin (ZITHROMAX) Take by mouth 0 250 mg tabletIndications: daily Take 2 [place] 2 tabletas por via tablets by oral hoy, chriso tome 1 mouth on the tableta por da misael 4 first day, justice then take one tablet every day for the next 4 days . 02/16/2018 Discontinued lisinopril (PRINIVIL) 20 Take 1 tablet 90 tablet 1 mg tabletIndications: by mouth 9 Essential hypertension, daily. benign 03/16/2018 Discontinued polyethylene glycol take as 4000 mL 0 (GOLYTELY) 236-22.74-6.74 directed. 9 -5.86 gram oral solution Intended use : colonoscopy 03/28/2018 predniSONE (DELTASONE) 20 Take 1 tablet 10 tablet 0 mg tabletIndications: by mouth 2 9 Sarcoidosis times daily for 5 days. 03/24/2018 Discontinued fluocinonide (LIDEX) 0.05 Apply to 15 g 0 % ointmentIndications: affected area 9 Nummular eczema 2 times daily. Active Problems Problem Noted Date Positive fecal occult blood test 05/25/2017 Syphilis, unspecified 11/06/2016 Essential hypertension, benign 09/30/2016 Prediabetes 07/09/2015 Chest pain 12/14/2012 Generalized abdominal pain 02/18/2012 GERD (gastroesophageal reflux disease) 01/05/2012 ED (erectile dysfunction) of non-organic origin 02/11/2011 Dyslipidemia 11/12/2010 Sprain, low back 10/08/2010 Sarcoidosis Overview: Echo WNL 07/25 PFTs-mild restrictive disease ct done Onychomycosis Encounters Care Team Description Date Type Specialty Audi Kapadia MD Nummular eczema 03/24/2018 Refill Family Practice Marci Brokos NP 03/23/2018 Pre-Clinic Gastroenterology Review Audi Kapadia MD Sarcoidosis (Primary Dx); Nummular eczema 03/22/2018 Office Visit Family Practice 03/22/2018 Travel Raleigh Dukes MD Polyp of ascending colon, unspecified type (Primary Dx); Occult blood in stools 03/16/2018 Hospital Encounter 03/16/2018 Travel Audi Kapadia MD 03/08/2018 Hospital Gastroenterology Encounter Audra Benavides MD Screening for colon cancer 02/18/2018 Orders Only [facility] Practice Audra Benavides MD Need for influenza vaccination (Primary Dx); Essential hypertension, benign; Screening for colon cancer 02/16/2018 Office Visit Family Practice 02/16/2018 Travel Marci Brooks NP Occult blood in stools (Primary Dx) 12/14/2017 Office Visit Gastroenterology Ang Galarza MD Encounter for vaccination (Primary Dx) 12/08/2017 Office Visit Pulmonology Esther Ramirez, SANTOS Colonoscopy 11/29/2017 Telephone Audi Kapadia MD Positive fecal occult blood test 11/21/2017 Orders Only [facility] Practice Audra Benavides MD 10/14/2017 Ancillary Radiology Procedure Audra Benavides MD Exposure to syphilis (Primary Dx); Essential hypertension, benign; Sarcoidosis 10/13/2017 Office Visit Family Practice Jacqueline Marshall Interpretation 10/13/2017 Telephone after 08/05/2017 Immunizations Name Administration Dates Next Due Herpes Zoster Vaccine In 05/25/2017 (Deferred: Patient Refused) Clinic Influenza, 02/16/2018 (Deferred: Patient Refused) Vaccine<FLUCELVAX>(Multi- Dose) Tdap (Tetanus Toxoid, 10/13/2017 (Deferred: Patient already had [...] Cessation: Counseling Given: Yes Comments: quit 2008 Drinks/Week oz/Week Comments Alcohol Use quit 2008 No Food Insecurity Answer Date Recorded Within the past 12 months, you worried that your Never true 12/08/2017 food would run out before you got money to buy more. Within the past 12 months, the food you bought Never true 12/08/2017 just didn't last and you didn't have money to get more. Sex Assigned at Date Recorded Not on file Industry Job Start Date Occupation Not on file Not on file Not on file Travel End Travel History Travel Start No recent travel history available. Last Filed Vital Signs Reading Time Taken Comments Vital Sign 130/64 03/22/2018 11:05 AM SECOND TIME WORKER manual BP Blood Pressure 70 03/22/2018 10:20 AM SECOND TIME WORKER Pulse 36.6 C (97.8 F) 03/22/2018 10:20 AM SECOND TIME WORKER Temperature 20 03/22/2018 10:20 AM SECOND TIME WORKER Respiratory Rate 98% 03/16/2018 10:15 AM SECOND TIME WORKER Oxygen Saturation - - Inhaled Oxygen Concentration 75.3 kg (166 lb) 03/22/2018 10:20 AM SECOND TIME WORKER Weight 170.2 cm (5' 7") 03/22/2018 10:20 AM SECOND TIME WORKER Height 26 03/22/2018 10:20 AM SECOND TIME WORKER Body Mass Index Plan of Treatment Health Maintenance Due Date Last Done Comments IMM Influenza Seasonal 11/15/2018 Oct to April (>/=19 yrs) Colorectal Cancer Scrn 03/16/2019 03/16/2018, 02/18/2018, 03/26/2017, Annual (FIT/FOBT) Age 50 Additional history exists to 75 Goals Goal Patient Associated Recent Progress Patient-Stat Author Goal Type Problems ed? 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 Comments Procedure Name Priority Date/Time Associated Diagnosis COLONOSCOPY Routine 03/16/2018 Occult blood in stools 8:55 AM SECOND TIME WORKER [facility] Routine 03/16/2018 8:55 AM SECOND TIME WORKER FECAL OCCULT BLOOD Routine 02/18/2018 Screening for colon 2:48 PM SECOND TIME WORKER cancer POC BMP - IN LAB (STAT) Routine 02/16/2018 3:03 PM SECOND TIME WORKER CBC/DIFF Routine 02/16/2018 Essential hypertension, 2:46 PM SECOND TIME WORKER benign HEMOCCULT KIT FOR STAT 02/16/2018 Screening for colon SPECIMEN COLLECTION AT 2:23 PM SECOND TIME WORKER cancer HOME XRAY CHEST 2 VIEWS Routine 10/14/2017 Sarcoidosis 9:20 AM CDT HEMOGLOBIN A1C Routine 10/14/2017 Essential hypertension, 9:08 AM CDT benign SYPHILIS MONITOR FOR Routine 10/14/2017 Exposure to syphilis TREATMENT 9:08 AM CDT LIVER PROFILE Routine 10/14/2017 Essential hypertension, 9:08 AM CDT benign BASIC METABOLIC PANEL Routine 10/14/2017 Essential hypertension, 9:08 AM CDT benign CBC/DIFF Routine 10/14/2017 Essential hypertension, 9:08 AM CDT benign URINALYSIS Routine 10/13/2017 Essential hypertension, 4:17 PM CDT benign after 08/05/2017 Results * COLONOSCOPY (03/16/2018 8:55 AM SECOND TIME WORKER) TEXT Patient Name [facility] Date of 1955 Record Number [id number] Date/Time of Procedure 03/16/2018, 8:55:00 AM Endoscopist Raleigh Hartman MD./Fellow Rosalia Emery INDICATIONS FOR EXAMINATION:Oc cult blood in stool. Screening Colonoscopy. PROCEDURE PERFORMED: Colonoscopy - with biopsy, single or multiple Colonoscopy - MODERATE SEDATION SAME PHYS/QHP 5/>YRS Colonoscopy - MODERATE SEDATION SAME PHYS/QHP 5/>YRS INSTRUMENTS: [id number] LIMITATIONS:None TOLERANCE: Good VISUALIZATION:Good PREP QUALITY: Excellent BOSTON BOWEL PREPARATION SCALE (BBPS): Right Colon: 3 Transverse Colon: 3 Left Colon: 3 Total Score: 9 WITHDRAWL TIME:00:14:18 MEDICATIONS:Fentanyl 175 mcg IVP, Benadryl 50 mg IV, Versed 7 mg IVP ASA CLASSIFICATION:II ANALGESIA:Conscious sedation PROCEDURE TECHNIQUE: The patient was brought into the endoscopy suite and placed in the left lateral decubitus position.Heart rate and rhythm, blood oxygen saturation, and blood pressure were monitored.After adequate sedation, a digital rectal exam was performed.The colonoscope was introduced through the anus into the rectum and advanced to the cecum which was identified by the appendiceal orifice and ileocecal valve.The scope was then withdrawn and the mucosa carefully examined.With the scope in the rectum the tip was retroflexed to examine the anorectal junction.Air was aspirated from the distal colon and the scope removed. FINDINGS: Melanosis coli all throughout the colon. A diminutive polyp was seen in the cecum with a biopsy forceps.The ascending, hepatic flexure, transverse, splenic flexure, descending, sigmoid colon and rectum were otherwise normal. Retroflexion was done and showed internal hemorrhoids. ENDOSCOPIC DIAGNOSIS: 1. One diminutive polyp in the cecum. 2. Internal Hemorrhoids. RECOMMENDATIONS: 1. F/U biopsy results. 2. F/U with PCP. 3. Repeat colonoscopy in 5 years unless patient has any interval change in symptoms/signs. COMPLICATIONS: None. ESTIMATED BLOOD LOSS:None BLOOD PRODUCTS ADMINISTERED:None GRAFT/IMPLANT:None COMMENTS: CPT CODE: 15458 Colonoscopy, flexible; diagnostic, including collection of specimen(s) by brushing or washing, when performed (separate procedur 87630 Colonoscopy, flexible; with biopsy, single or multiple 25999 MODERATE SEDATION SAME PHYS/QHP 5/>YRS 17623 MODERATE SEDATION SAME PHYS/QHP 5/>YRS ICD CODE: R19.5 Other fecal abnormalities Z12.11 Special screening for malignant neoplasms of colon D12.0 Benign neoplasm of cecum K64.8 Other hemorrhoids I was present during the entire viewing portion of theprocedure.I personally reviewed the images and report prepared by the resident or fellow and agree with the findings. Procedure completed. This Procedure was electronically signed of on : 03/16/2018 9:57:32 AM By Raleigh Dukes Specimen Performing Organization Address City/State/Zipcode Phone Number SMS * [facility] (03/16/2018 8:55 AM SECOND TIME WORKER) HX FINAL COLON, CECUM POLYP, COPATH DIAGNOSIS BIOPSY: -- TUBULAR ADENOMA "I have personally reviewed the resident's preliminary interpretation and all specimen preparations and have personally issued this report." Specimen Narrative Performed At [facility] Date of 1955 Hospital Number [id number] Location [facility] Post Anesthesiology SURGICAL PATHOLOGY Collected:03/16/2018 08:55 Received: 03/16/2018 15:01 PATHOLOGIC DIAGNOSIS COLON, CECUM POLYP, BIOPSY: -- TUBULAR ADENOMA "I have personally reviewed the resident's preliminary interpretation and all specimen preparations and have personally issued this report." Pertinent Clinical Information Not provided. Tissue Submitted: Cecum polyp. Gross Description Container A:Received in formalin, labeled with the patient's name, medical record number and "CECUM POLYP" is an irregular, odell-brown tissue fragment measuring 0.4 x 0.3 x 0.3 cm.The specimen is filtered and submitted in toto in cassette A1. Kiah Duncan/[id number] Over Short And Damage Clerk Microscopic Description A microscopic examination has been performed and the findings are incorporated in the diagnosis above. The positive and negative controls for all histochemical and immunohistochemical stains, if performed for this case, have been reviewed and, unless otherwise noted, have been found to be appropriate. Electronically Signed Out JUAN DANIEL HORN Staff Pathologist Performing Organization Address City/State/[facility] Phone Number [place], [place] * OCCULT BLOOD ICT (02/18/2018 2:48 PM SECOND TIME WORKER) Occult Blood Negative NEG [facility] ICT Specimen Stool Performing Organization Address City/[facility] Phone Number [facility] * BMP POC (02/16/2018 3:03 PM SECOND TIME WORKER) TCO2 POC 31 21 - 32 mmol/L [facility] Chloride POC 99 98 - 107 mmol/L [facility] Potassium POC 4.6 3.50 - 5.10 mmol/L [facility] Sodium POC 138 136 - 145 mmol/L [facility] Glucose POC 92 74 - 106 mg/dL [facility] Urea Nitrogen 19 (H) 7 - 18 mg/dL [facility] POC Creatinine POC 0.9 0.6 - 1.3 mg/dL [facility] Ionized Calcium 1.14 (L) 1.15 - 1.29 mmol/L [facility] POC GFR, Estimated >60 mL/min/1.73 m2 [facility] GFR, Estim, >60 mL/min/1.73 m2 [facility] Afr-Am Specimen Performing Organization Address City/State/Zipcode Phone Number [facility] * CBC/DIFF (02/16/2018 2:46 PM SECOND TIME WORKER) Only the most recent of 2 results within the time period is included. WBC 7.3 4.5 - 12.0 K/uL [facility] 2 RBC 5.55 4.60 - 6.20 M/uL [facility] Hemoglobin 16.3 14.0 - 18.0 g/dL [facility] 2 Hematocrit 50.0 40.0 - 54.0 % [facility] 2 MCV 90 82 - 92 fL [facility] 2 MCH 29.4 27.0 - 31.0 pg [facility] 2 MCHC 32.6 32.0 - 36.0 g/dL [facility] 2 RDW 41.6 35.1 - 43.9 fL [facility] 2 Platelets 199 150 - 400 K/uL [facility] 2 Mean Platelet 11.2 9.4 - 12.4 fL [facility] Volume 2 Percent NRBC 0.0 [facility] 2 Absolute NRBC 0.00 [facility] 2 Neutrophils 58.9 34.0 - 67.9 % [facility] 2 Lymphs 30.0 21.8 - 50.0 % [facility] 2 Monocytes 8.5 5.3 - 12.0 % [facility] 2 Eos 1.5 0.8 - 5.0 % [facility] 2 Basos 0.8 0.2 - 1.2 % [facility] 2 Immature 0.3 0.0 - 0.5 [facility] Granulocytes 2 Neutrophils 4.28 1.78 - 5.36 K/uL [facility] (Absolute) 2 Lymphs 2.18 1.32 - 3.57 K/uL [facility] (Absolute) 2 Monocytes(Absol 0.62 0.30 - 0.82 K/uL [facility] geovanny) 2 Eos (Absolute) 0.11 0.04 - 0.54 K/uL [facility] 2 Baso (Absolute) 0.06 0.01 - 0.08 K/uL [facility] 2 Immature Grans 0.02 0.00 - 0.03 K/uL [facility] (Abs) 2 Specimen Blood Performing Organization Address [facility] Phone Number [facility] * XRAY CHEST 2 VIEWS (10/14/2017 9:20 AM CDT) Specimen Impressions Performed At IMPRESSION: SMS No acute cardiac or pulmonary pathology is identified in the chest. Signed By: Afshin Crump MD, 10/14/2017 9:24 AM Narrative Performed At EXAM: XR CHEST 2 VIEWS [facility] DATE:10/14/2017 9:17 AM INDICATION: sarcoidosis chest Sarcoidosis [...] MD, 10/14/2017 9:24 AM Performing Organization Address City/[facility] Phone Number SMS * HEMOGLOBIN A1C (10/14/2017 9:08 AM CDT) Hemoglobin A1c 5.9 4.3 - 6.1 % [facility] IMMUNOLOGY Est Average 122.6 mg/dL [facility] Gluc IMMUNOLOGY Specimen Blood Performing Organization Address [facility] Phone Number [facility] * SYPHILIS MONITOR FOR TREATMENT (10/14/2017 9:08 AM CDT) RPR Nonreactive NR Titer [facility] Specimen Blood Performing Organization Address [facility] Phone Number [facility] * LIVER PROFILE (10/14/2017 9:08 AM CDT) Protein, Total, 6.6 6.0 - 8.3 g/dL [facility] Serum 1 Albumin 4.4 4.2 - 5.5 g/dL [facility] 1 Bilirubin, 0.6 0.2 - 1.2 mg/dL [facility] Total 1 Alkaline 76 34 - 104 U/L [facility] Phosphatase, S 1 AST (SGOT) 15 13 - 39 U/L [facility] 1 ALT 17 7 - 52 U/L [facility] 1 D Bilirubin 0.1 0.0 - 0.2 mg/dL [facility] 1 Specimen Blood Performing Organization Address [facility] Phone Number [facility] * BASIC METABOLIC PANEL (10/14/2017 9:08 AM CDT) CO2 30 21 - 31 mmol/L [facility] 1 Chloride 104 98 - 107 mmol/L [facility] 1 Potassium 4.1 3.5 - 5.1 mmol/L [facility] 1 Sodium 144 136 - 145 mmol/L [facility] 1 Glucose 146 (H) 70 - 110 mg/dL [facility] 1 BUN 11 7 - 25 mg/dL [facility] 1 Creatinine 1.00 0.7 - 1.3 mg/dL [facility] 1 Anion Gap 10 [facility] 1 Calcium 9.2 8.6 - 10.3 mg/dL [facility] 1 GFR, Estimated >60 mL/min/1.73 m2 [facility] 1 eGFR If Africn >60 mL/min/1.73 m2 [facility] Am 1 Specimen Blood Performing Organization Address City/[facility] Phone Number [facility] * UA CHEMISTRIES (10/13/2017 4:17 PM CDT) Color Yellow [facility] 3 Clarity Clear [facility] 3 Specific 1.020 1.001 - 1.035 [facility] Tsaile 3 pH 5.0 5 - 8 [facility] 3 Protein Negative NEG [facility] 3 Glucose Negative NEG [facility] 3 Ketones Negative NEG [facility] 3 Bilirubin Negative NEG [facility] 3 Nitrate Negative NEG [facility] 3 Urobilinogen,Se <1.0 0.2 - 1.0 EU/dL [facility] mi-Qn 3 Leukocyte Negative NEG [facility] 3 Occult Blood Negative NEG [facility] 3 Specimen Urine Performing Organization Address [facility] Phone Number [facility] 3 after 08/05/2017 Insurance Type Payer Benefit Subscriber ID Effective Phone Address Plan / Dates Group [employer] PLAN [employer] PLAN xxxxxx 2018- [phone] [id number] [place] [address]
== END 2018-08-06 01:11 | disposition left against medical advice (07) ==
LOC: ER 00:36
DX: R20.2 Paresthesia of skin (principal); M54.12 Radiculopathy, cervical region

== ENCOUNTER 2019-03-24 23:03 | Emergency (ER) | payer MEDICARE ==
[~2019-03-24] VITALS: Ht 170.2 cm; Wt 79.4 kg
[2019-03-24] MEDS ORDERED: ASPIRIN 81 MG CHEW TAB PO ONE (23:30)
[2019-03-24 23:56] LABS: HEMATOCRIT 46.9 % (38.2-49.6); HEMOGLOBIN 16.1 g/dL (14.0-18.0); MEAN CORPUSCULAR HEMOGLOBIN 29.9 pg (28-32); MEAN CORPUSCULAR HGB CONC 34.3 g/dL (31-35); RED BLOOD COUNT 5.39 x10e6/uL (4.3-5.7); RED CELL DISTRIBUTION WIDTH 12.5 % (11.7-14.4)
[2019-03-24 23:57] LABS: LYMPHOCYTES % 38.7 % (18.0-39.1); NEUTROPHILS % 52.7 % (38.7-80.0); PLATELET COUNT 198 x10e3/uL (140-360)
[2019-03-24 23:58] LABS: BASOPHILS # (AUTO) 0.1 (0.0-0.1); BASOPHILS % 0.7 % (0.0-1.0); EOSINOPHILS # (AUTO) 0.1 (0.0-0.4); EOSINOPHILS % 1.1 % (0.0-6.0); LYMPHOCYTES # (AUTO) 3.6 (1.0-3.2); MONOCYTES # (AUTO) 0.6 (0.2-0.8); MONOCYTES % 6.5 % (4.4-11.3); NEUTROPHILS # (AUTO) 4.9 (2.1-6.9)
[2019-03-25 00:15] LABS: ALANINE AMINOTRANSFERASE 30 IU/L (0-55); ALBUMIN 4.4 g/dL (3.5-5.0); ALBUMIN/GLOBULIN RATIO 1.3 (0.8-2.0); ALKALINE PHOSPHATASE 88 IU/L (40-150); ANION GAP 20.1 mmol/L (8-16); BLOOD UREA NITROGEN 22 mg/dL (7-26); BUN/CREATININE RATIO 20 (6-25); CALCIUM 9.2 mg/dL (8.4-10.2); CARBON DIOXIDE 21 mmol/L (22-29); CHLORIDE 101 mmol/L (98-107); CREATINE KINASE 61 IU/L (30-200); CREATININE, SERUM 1.08 mg/dL (0.72-1.25); EST GLOMERULAR FILTRATION RATE > 60 ML/MIN (60-); GLUCOSE 109 mg/dL (74-118); POTASSIUM 4.1 mmol/L (3.5-5.1); SODIUM 138 mmol/L (136-145)
--- NOTE | 2019-03-25 01:29 | Diagnostic Imaging Report ---
EXAMINATION: CHEST SINGLE (PORTABLE) INDICATION: Chest pain. COMPARISON: 02/11/2018. FINDINGS: TUBES and LINES: None. LUNGS: Lungs are not well inflated. There are bibasilar atelectasis. There is no evidence of pneumonia or pulmonary edema. PLEURA: No pleural effusion or pneumothorax. HEART AND MEDIASTINUM: The cardiomediastinal silhouette is unremarkable. BONES AND SOFT TISSUES: No acute osseous lesion. Soft tissues are unremarkable. UPPER ABDOMEN: No free air under the diaphragm. IMPRESSION: No acute thoracic abnormality. Signed by: Dr. Zeferino Pak M.D. on 03/25/2019 1:26 AM
[2019-03-25 01:59] VITALS: BP 121/69
== END 2019-03-25 02:15 | disposition home or self-care (01) ==
LOC: ER 23:03
DX: R07.89 Other chest pain (principal); I10 Essential (primary) hypertension; Z87.891 Personal history of nicotine dependence
CPT/HCPCS: 36415; 71045; 80053; 82550; 82553; 83880; 84484; 85025; 93005; 99284

== ENCOUNTER 2019-10-20 12:47 | Emergency (ER) | payer MEDICARE ==
[~2019-10-20] VITALS: Ht 170.2 cm; Wt 79.4 kg
[2019-10-20] MEDS ORDERED: SODIUM CHLORIDE 0.9% 1000ML 1,000 ML IV STA ×2 (13:17→13:38)
[2019-10-20] MEDS ORDERED: MEROPENEM 1GM 100 ML IV ONE (13:30)
--- NOTE | 2019-10-20 14:03 | Diagnostic Imaging Report ---
TECHNIQUE: Frontal view of the chest. INDICATION: ^DIZZY ^[id number] ^[id number] COMPARISON: 03/25/2019 DISCUSSION: Limited evaluation due to portable technique. Lines and hardware: None Heart and mediastinum: Stable. Lungs and pleura: No focal airspace consolidation. No pleural effusion. No pneumothorax. Soft tissues and bones: No acute abnormality. IMPRESSION: Negative for acute intrathoracic process. Signed by: Rashaun Kumar MD on 10/20/2019 1:59 PM
--- NOTE | 2019-10-20 14:17 | Diagnostic Imaging Report ---
Examination: CT BRAIN WO CONTRAST History:^N ^DIZZY ^[id number] ^[id number]; Vertigo; dizziness Comparison studies:Head CT performed April 29, 2017 Technique: Axial images were obtained from the skull base to the vertex. Coronal and sagittal images reconstructed from the axial data. Dose modulation, iterative reconstruction, and/or weight based adjustment of the mA/kV was utilized to reduce the radiation dose to as low as reasonably achievable. Intravenous contrast: None Findings: Scalp: No abnormalities. Bones: No fractures, blastic or lytic lesions. Brain sulci: Appropriate for age. Ventricles: Normal in size and configuration. No hydrocephalus. Extra-axial space: No abnormalities. Parenchyma: No masses, hemorrhage, or acute or chronic cortical based vascular insults.. Sellar/suprasellar region: No abnormalities. Craniocervical junction: Patent foramen magnum. No Chiari one malformation. Incidental findings: None. Impression: No new or acute intracranial abnormalities when compared to prior head CT performed April 29, 2017. Signed by: Dr. Khadijah Melendez M.D. on 10/20/2019 2:14 PM
[2019-10-20 14:30] LABS: BASOPHILS % 0.6 % (0.0-1.0); EOSINOPHILS # (AUTO) 0.1 (0.0-0.4); EOSINOPHILS % 0.7 % (0.0-6.0); HEMATOCRIT 49.6 % (38.2-49.6); HEMOGLOBIN 16.6 g/dL (14.0-18.0); LYMPHOCYTES # (AUTO) 2.2 (1.0-3.2); LYMPHOCYTES % 32.4 % (18.0-39.1); MEAN CORPUSCULAR HEMOGLOBIN 29.1 pg (28-32); MEAN CORPUSCULAR HGB CONC 33.5 g/dL (31-35); MONOCYTES # (AUTO) 0.5 (0.2-0.8); MONOCYTES % 7.4 % (4.4-11.3); NEUTROPHILS # (AUTO) 3.9 (2.1-6.9); NEUTROPHILS % 58.6 % (38.7-80.0); PLATELET COUNT 216 x10e3/uL (140-360); RED CELL DISTRIBUTION WIDTH 12.5 % (11.7-14.4)
[2019-10-20 14:36] LABS: INR 0.84; PARTIAL THROMBOPLASTIN TIME 31.1 seconds (23.8-35.5); PROTHROMBIN TIME 11.9 seconds (11.9-14.5)
[2019-10-20 14:51] LABS: ALANINE AMINOTRANSFERASE 28 IU/L (0-55); ALBUMIN/GLOBULIN RATIO 1.8 (0.8-2.0); ALKALINE PHOSPHATASE 75 IU/L (40-150); ANION GAP 16.1 mmol/L (8-16); BLOOD UREA NITROGEN 13 mg/dL (7-26); BUN/CREATININE RATIO 13 (6-25); CALCIUM 9.8 mg/dL (8.4-10.2); CARBON DIOXIDE 27 mmol/L (22-29); CHLORIDE 101 mmol/L (98-107); CREATINE KINASE 38 IU/L (30-200); CREATININE, SERUM 1.03 mg/dL (0.72-1.25); EST GLOMERULAR FILTRATION RATE > 60 ML/MIN (60-); GLUCOSE 113 mg/dL (74-118); MAGNESIUM 2.3 MG/DL (1.3-2.1); POTASSIUM 4.1 mmol/L (3.5-5.1); SODIUM 140 mmol/L (136-145)
--- OUTSIDE RECORDS SUMMARY | 2019-10-20 15:02 | XMS REPORT | Continuity of Care Document ---
Author Author [facility] t Organization [facility] Address [address] [place] [address] Phone Unavailable Care Team Providers Care Java Technical Manager Name Role Phone NO, PCP PCP Unavailable Kris BOLAÑOS Attphys Unavailable Holly CHEW Attphys Unavailable JÚNIOR, Kris MARTINEZ Attphys Unavailable Rita DIAZ Attphys Unavailable HARJIT CHILDS Attphys Unavailable Payers Payer Name Policy Type Policy Number Effective Date Expiration Date S [facility] [place] & B [id number] [facility] Self Pay NA [facility] Problems Condition Name Condition Details Condition Category Status Onset Date Resolution Date Last Treatment Date Treating Clinician Comments Source Vertigo Vertigo Problem Active [facility] Allergies, Adverse Reactions, Alerts Allergy Name Allergy Type Status Severity Reaction(s) Onset Date Inacti ve Date Treating Clinician Comments Source penicillin Allergy to Substance Active 2018-08-06 00:00:00 [facility] Medications Ordered Medication Name Filled Medication Name Start Date Stop Da te Current Medication? Ordering Clinician Indication Dosage Frequency Signature (SIG) Comments Components Source Azithromycin (Z-Moe) 250 Mg Tablet Azithromycin (Z-Moe) 250 Mg Tablet 2017-11-07 00:00:00 Yes Lobo Cardoza Transmission Tester 1 As Directed [facility] Cyclobenzaprine Hcl (Flexeril) 5 Mg Tablet Cyclobenzap rine Hcl (Flexeril) 5 Mg Tablet 2017-11-07 00:00:00 Yes Lobo Cardoza Transmission Tester 5 Every 8 Hours as needed for Pain [facility] Dicyclomine Hcl (Bentyl) 10 Mg Capsule, 20 Mg Oral Dic yclomine Hcl (Bentyl) 10 Mg Capsule, 20 Mg Oral 2015-11-11 00:00:00 No 20 E very 6 Hours [facility] Enalapril Maleate (Vasotec) 5 Mg Tab, 5 Mg Oral Enalap ril Maleate (Vasotec) 5 Mg Tab, 5 Mg Oral 2015-11-11 00:00:00 No 5 Daily [facility] Multivitamin (Multi-Day Vitamins) 1 Each Tablet, 1 Tab Oral Multivitamin (Multi- Day Vitamins) 1 Each Tablet, 1 Tab Oral 2015-11-11 00:00:00 No 1 Daily [facility] Ondansetron (Zofran Odt) 4 Mg Tab.rapdis, 4 Mg Oral On dansetron (Zofran Odt) 4 Mg Tab.rapdis, 4 Mg Oral 2015-11-11 00:00:00 No 4 Every 8 Hours [facility] Procedures This patient has no known procedures. Encounters Start Date/Time End Date/Time [facility] Source 2019-03-24 23:03:00 2019-03-25 02:15:00 Departed Emergency Room 1 ANNAMARIE CHEW [facility] [id number] [facility] 2018-08-06 00:36:00 2018-08-06 01:11:00 Departed Emergency Room [facility] [id number] [facility] 2018-02-14 00:51:00 2018-02-14 02:30:00 Departed Emergency Room [facility] [id number] [facility] 2018-02-11 20:40:00 2018-02-12 04:39:00 Departed Emergency Room 1 ANNAMARIE CHEW [facility] [id number] [facility] 2017-11-07 10:07:00 2017-11-07 15:30:00 Departed Emergency Room 1 MICHELLE CALLEJAS [facility] [id number] [facility] 2017-09-24 14:15:00 2017-09-24 20:07:00 Departed Emergency Room 1 NICK DIAZ [facility] [id number] [facility] 2017-04-29 14:59:00 2017-04-29 18:12:00 Departed Emergency Room ER HARJIT CHILDS [facility] [id number] [facility] 2017-03-13 00:49:00 2017-03-13 01:15:00 Departed Emergency Room [facility] [id number] [facility] 2016-12-03 04:56:00 2016-12-03 06:44:00 Departed Emergency Room ER ANNAMARIE CHEW [facility] [id number] [facility] Results Test Description Test Time Test Comments Results Result Comments Source CT BRAIN WO 2019-10-20 14:12:00 [facility] [address] [address] Patient Name: ÁNGEL EMMANUEL MR #: [id number] : 1955 Age/Sex: 64/M Req #: [id number] Adm Physician: Ordered by: SVEN BOLAÑOS MD Report #: [id number] Location: ER Room/Bed: Procedure: [id number] CT/CT BRAIN WO Exam Date: 10/20/19 Exam Time: 1337 REPORT STATUS: Signed Examination: CT BRAIN WO CONTRAST History: N DIZZY [id number]; Vertigo; dizziness Comparison studies:Head CT performed April 29, 2017 Technique: Axial images were obtained from the skull base to the vertex. Coronal and sagittal images reconstructed from the axial data. Dose modulation, iterative reconstruction, and/or weight based adjustment of the mA/kV was utilized to reduce the radiation dose to as low as reasonably achievable. Intravenous contrast: None Findings: Scalp: No abnormalities. Bones: No fractures, blastic or lytic lesions. Brain sulci: Appropriate for age. Ventricles: Normal in size and configuration. No hydrocephalus. Extra-axial space: No abnormalities. Parenchyma: No masses, hemorrhage, or acute or chronic cortical based vascular insults.. Sellar/suprasellar region: No abnormalities. Craniocervical junction: Patent foramen magnum. No Chiari one malformation. Incidental findings: None. Impression: No new or acute intracranial abnormalities when compared to prior head CT performed April 29, 2017. Signed by: Dr. Caleb Melendez M.D. on 10/20/2019 2:14 PM Dictated By: CALEB MUIR MD 13 Transcribed By: ROLAND on 10/20/191413 COPY TO: SVEN BOLAÑOS MD CHEST SINGLE (PORTABLE) 2019-10-20 13:58:[address] [address] Patient Name: ÁNGEL EMMANUEL MR #: [id number] : 1955 Age/Sex: 64/M Req #: [id number] Adm Physician: Ordered by: SVEN BOLAÑOS MD Report #: [id number] Location: ER Room/Bed: Procedure: [id number] DX/CHEST SINGLE (PORTABLE) Exam Date: 10/20/19 Exam Time: 1345 REPORT STATUS: Signed TECHNIQUE: Frontal view of the chest. INDICATION: DIZZY 20191020 COMPARISON: 03/25/2019 DISCUSSION: Limited evaluation due to portable technique. Lines and hardware: None Heart and mediastinum: Stable. Lungs and pleura: No focal airspace consolidation. No pleural effusion. No pneumothorax. Soft tissues and bones: No acute abnormality. IMPRESSION: Negative for acute intrathoracic process. Signed by: Salinas Kumar MD on 10/20/2019 1:59 PM Dictated By: SALINAS KUMAR MD [id number] Transcribed By: ROLAND on 10/20/19 135 COPY TO: SVEN BOLAÑOS MD CHEST SINGLE (PORTABLE) 2019-03-25 01:25:[address] [address] Patient Name: ÁNGEL EMMANUEL MR #: [id number] : 1955 Age/Sex: 63/M Req #: [id number] Adm Physician: Ordered by: ANNAMARIE CHEW MD Report #: [id number] Location: ER Room/Bed: Procedure: [id number] DX/CHEST SINGLE (PORTABLE) Exam Date: 03/25/19 Exam Time: 0040 REPORT STATUS: Signed EXAMINATION: CHEST SINGLE (PORTABLE) INDICATION: Chest pain. COMPARISON: 02/11/2018. FINDINGS: TUBES and LINES: None. LUNGS: Lungs are not well inflated. There are bibasilar atelectasis. There is no evidence of pneumonia or pulmonary edema. PLEURA: No pleural effusion or pneumothorax. HEART AND MEDIASTINUM: The cardiomediastinal silhouette is unremarkable. BONES AND SOFT TISSUES: No acute osseous lesion. Soft tissues are unremarkable. UPPER ABDOMEN: No free air under the diaphragm. IMPRESSION: No acute thoracic abnormality. Signed by: Dr. Zeferino Strong M.D. on 03/25/2019 1:26 AM Dictated By: JESUS STRONG MD, MD 5 Transcribed By: ROLAND on 03/25/19125 COPY TO: ANNAMARIE CHEW MD Creatine Kinase MB 2019-03-25 00:25:00 Test Item Creatine Kinase MB (test code = 02084-9) 1.00 0-5.0 [facility] [id number] 00:25:00* Test Item Value Reference Range Interpretation Comments Troponin I (test code = CUL4418) < 0.001 0-0.300 [facility] Zvoac9777-27-00 00:20:00* Test Item Value Reference Range Interpretation Comments Sodium Level (test code = 2951-2) 138 136-145 [facility] CenterPotassium Qisso1793-72-59 00:20:00* Test Item Value Reference Range Interpretation Comments Potassium Level (test code = 2823-3) 4.1 3.5-5.1 [facility] CenterChloride Lwpof1479-13-86 00:20:00* Test Item Value Reference Range Interpretation Comments Chloride Level (test code = 2075-0) 101 98-107 [facility] CenterCarbon Dioxide Pgjpb9911-28-67 00:20:00* Test Item Value Reference Range Interpretation Comments Carbon Dioxide Level (test code = 2028-9) 21 22-29 L [facility] CenterAnion Pro3747-17-70 00:20:00* Test Item Value Reference Range Interpretation Comments Anion Gap (test code = 64538-0) 20.1 8-16 H [facility] CenterBlood Urea Mauljish3602-72-76 00:20:00* Test Item Value Reference Range Interpretation Comments Blood Urea Nitrogen (test code = 3094-0) 22 7-26 [facility] CenterCreatinine2020-02-08 00:20:00* Test Item Value Reference Range Interpretation Comments Creatinine (test code = 2160-0) 1.08 0.72-1.25 [facility] CenterBUN/Creatinine Nmqsy2321-24-21 00:20:00* Test Item Value Reference Range Interpretation Comments BUN/Creatinine Ratio (test code = 3097-3) 20 6-25 [facility] CenterEstimat Glomerular Filtration Rate 2019-03-25 00:20:00* Test Item Value Reference Range Interpretation Comments Estimat Glomerular Filtration Rate (test code = 929810118) > 60 >60 Ranges were taken from the National Kidney Disease Education Program and the [facility] literature.Reference ranges:60 or greater: Hckrml70-79 ( for 3 consecutive months): Chronic kidney disease 15 or less: Kidney failurePermian Regional Medical CenterGlucose Peahr2544-13-04 00:20:00* Test Item Value Reference Range Interpretation Comments Glucose Level (test code = IPF7909) 109 74-118 [facility] CenterCalcium Hocqi7466-98-67 00:20:00* Test Item Value Reference Range Interpretation Comments Calcium Level (test code = 98721-6) 9.2 8.4-10.2 [facility] CenterTotal Udqaotkcy4043-25-60 00:20:00* Test Item Value Reference Range Interpretation Comments Total Bilirubin (test code = 1975-2) 0.6 0.2-1.2 [facility] CenterAspartate Amino Transf (AST/SGOT) 2019-03-25 00:20:00* Test Item Value Reference Range Interpretation Comments Aspartate Amino Transf (AST/SGOT) (test code = Aspartate Amino Transf (AST/SGOT)) 25 5-34 [facility] CenterAlanine Aminotransferase (ALT/SGPT) 2019-03-25 00:20:00* Test Item Value Reference Range Interpretation Comments Alanine Aminotransferase (ALT/SGPT) (test code = 1742-6) 30 0-55 [facility] CenterTotal Bhmspgz9449-70-94 00:20:00* Test Item Value Reference Range Interpretation Comments Total Protein (test code = 2885-2) 7.7 6.5-8.1 [facility] CenterAlbumin2020-02-08 00:20:00* Test Item Value Reference Range Interpretation Comments Albumin (test code = 1751-7) 4.4 3.5-5.0 [facility] CenterGlobulin2020-02-08 00:20:00* Test Item Value Reference Range Interpretation Comments Globulin (test code = 19105-1) 3.3 2.3-3.5 [facility] CenterAlbumin/Globulin Qurhe6806-05-80 00:20:00 * Test Item Value Reference Range Interpretation Comments Albumin/Globulin Ratio (test code = 1759-0) 1.3 0.8-2.0 [facility] CenterAlkaline Cgtejrkusbc7467-37-90 00:20:00* Test Item Value Reference Range Interpretation Comments Alkaline Phosphatase (test code = 6768-6) 88 40-150 [facility] CenterCreatine Oovsmx8100-56-50 00:20:00* Test Item Value Reference Range Interpretation Comments Creatine Kinase (test code = 2157-6) 61 30-200 [facility] CenterWhite Blood Qldll6889-88-60 23:58:00* Test Item Value Reference Range Interpretation Comments White Blood Count (test code = 6690-2) 9.22 4.8-10.8 [facility] CenterRed Blood Hwzqs4341-46-02 23:58:00* Test Item Value Reference Range Interpretation Comments Red Blood Count (test code = 789-8) 5.39 4.3-5.7 [facility] CenterHemoglobin2020-02-07 23:58:00* Test Item Value Reference Range Interpretation Comments Hemoglobin (test code = 87545-8) 16.1 14.0-18.0 [facility] CenterHematocrit2020-02-07 23:58:00* Test Item Value Reference Range Interpretation Comments Hematocrit (test code = 4544-3) 46.9 38.2-49.6 [facility] CenterMean Corpuscular Sanxxy2017-94-76 23:58:00* Test Item Value Reference Range Interpretation Comments Mean Corpuscular Volume (test code = 787-2) 87.0 81-99 [facility] CenterMean Corpuscular Bblkoyglnx4302-63-44 23:58:00* Test Item Value Reference Range Interpretation Comments Mean Corpuscular Hemoglobin (test code = 785-6) 29.9 28-32 [facility] CenterMean Corpuscular Hemoglobin Concent 2019-03-24 23:58:00* Test Item Value Reference Range Interpretation Comments Mean Corpuscular Hemoglobin Concent (test code = 786-4) 34.3 31-35 [facility] CenterRed Cell Distribution Pjpct6029-13-88 23:58:00* Test Item Value Reference Range Interpretation Comments Red Cell Distribution Width (test code = 25516-9) 12.5 11.7 -14.4 [facility] CenterPlatelet Virja1204-26-26 23:58:00* Test Item Value Reference Range Interpretation Comments Platelet Count (test code = 777-3) 198 140-360 [facility] CenterNeutrophils (%) (Auto)2019-03-24 23:58:00 * Test Item Value Reference Range Interpretation Comments Neutrophils (%) (Auto) (test code = 29466-0) 52.7 38.7-80.0 [facility] CenterLymphocytes (%) (Auto)2019-03-24 23:58:00 * Test Item Value Reference Range Interpretation Comments Lymphocytes (%) (Auto) (test code = 736-9) 38.7 18.0-39.1 [facility] CenterMonocytes (%) (Auto)2019-03-24 23:58:00* Test Item Value Reference Range Interpretation Comments Monocytes (%) (Auto) (test code = 5905-5) 6.5 4.4-11.3 [facility] CenterEosinophils (%) (Auto)2019-03-24 23:58:00 * Test Item Value Reference Range Interpretation Comments Eosinophils (%) (Auto) (test code = 713-8) 1.1 0.0-6.0 [facility] CenterBasophils (%) (Auto)2019-03-24 23:58:00* Test Item Value Reference Range Interpretation Comments Basophils (%) (Auto) (test code = 706-2) 0.7 0.0-1.0 [facility] CenterIM GRANULOCYTES %2019-03-24 23:58:00* Test Item Value Reference Range Interpretation Comments IM GRANULOCYTES % (test code = IM GRANULOCYTES %) 0.3 0.0- 1.0 [facility] CenterNeutrophils # (Auto)2019-03-24 23:58:00* Test Item Value Reference Range Interpretation Comments Neutrophils # (Auto) (test code = 751-8) 4.9 2.1-6.9 [facility] CenterLymphocytes # (Auto)2019-03-24 23:58:00* Test Item Value Reference Range Interpretation Comments Lymphocytes # (Auto) (test code = 66016-7) 3.6 1.0-3.2 H [facility] CenterMonocytes # (Auto)2019-03-24 23:58:00* Test Item Value Reference Range Interpretation Comments Monocytes # (Auto) (test code = 742-7) 0.6 0.2-0.8 [facility] CenterEosinophils # (Auto)2019-03-24 23:58:00* Test Item Value Reference Range Interpretation Comments Eosinophils # (Auto) (test code = 711-2) 0.1 0.0-0.4 [facility] CenterBasophils # (Auto)2019-03-24 23:58:00* Test Item Value Reference Range Interpretation Comments Basophils # (Auto) (test code = 704-7) 0.1 0.0-0.1 [facility] CenterAbsolute Immature Granulocyte (auto 2019-03-24 23:58:00* Test Item Value Reference Range Interpretation Comments Absolute Immature Granulocyte (auto (jadiel t code = Absolute Immature Granulocyte (auto) 0.03 0-0.1 [facility] CenterCHEST 2 NDXWV3673-97-36 22:54:[address] [address] Patient Name: ÁNGEL EMMANUEL MR #: [id number] : 1955 Age/Sex: 62/M Req #: [id number] Adm Physician: Ordered by: ANNAMARIE CHEW MD Report #: [id number] Location: ER Room/Bed: Procedure: 1228-0 085 DX/CHEST 2 VIEWS Exam Date: 02/11/18 Exam Time: 2200 REPORT STATUS: Signed EXAM: CHEST 2 VIEWS, PA and lateral INDICATION: Back pain COMPARISON: PA and late ral view of the chest November 07, 2017 FINDINGS: LINES/TUBES: None LUNGS: No consolidations or edema. Stable scarring left lung base. PLEURA: No effusions or pneumothorax. HEART AND MEDIASTINUM: Normal size and conto ur. BONES AND SOFT TISSUES: No acute findings. IMPRESSION: No acute thoracic abnormality. Signed by: Dr. Sue Bennett M.D. on 01/16 10:54 PM Dictated By: SUE BENNETT MD 53 Transcribed By: ROLAND on 02/11/182253 COPY TO: ANNAMARIE CHEW MD SP LUMBAR, COMPLETE MIN 5AA4131-29-29 22:54:[address] [address] Patient Name: ÁNGEL EMMANUEL MR #: [id number] : 1955 Age/Sex: 62/M Req #: [id number] Adm Physician: Ordered by: ANNAMARIE CHEW MD Report #: [id number] Location: ER Room/Bed: Procedure: 1228-0 086 DX/SP LUMBAR, COMPLETE MIN 4VW Exam Date: 02/11/18 Exam Time: 2200 REPORT STATUS: S igned EXAM: LUMBAR SPINE, AP, lateral, bilateral oblique and coned lateral vi ew INDICATION: Back pain COMPARISON: None FINDINGS: BONES: Five lumbar-type vertebral bodies. The alignment is within normal limits. No acut e displaced fractures. No lytic or blastic lesions. DISCS: The disc-spa darrel are well-maintained. Mild anterior osteophytes L4 and L5. JOINTS: The facet joints and sacroiliac joints are unremarkable. SOFT TISSUES: Mild calcifications of the abdominal aorta. IMPRESSION: No acute lumbar spine radiographic findings. Mild degenerative changes L4/L5. Signed by: Dr. Jigna Bennett M.D. on 02/11/2018 10:56 PM Dictated By: SUE Farrell 55 Transcribed By: ROLAND on 02/11/182255 COPY TO: ANNAMARIE CHEW MD Urine ELT9770-51-11 22:27:00* Test Item Value Reference Range Interpretation Comments Urine WBC (test code = 5821-4) 0-5 0-5 [facility] CenterUrine QJZ4509-31-51 22:27:00* Test Item Value Reference Range Interpretation Comments Urine RBC (test code = 12491-0) NONE 0-5 [facility] CenterUrine Hjisxcvn9109-52-58 22:27:00* Test Item Value Reference Range Interpretation Comments Urine Bacteria (test code = 67980-7) NONE NONE [facility] CenterUrine Epithelial Ywhrp2877-94-88 22:27:00 * Test Item Value Reference Range Interpretation Comments Urine Epithelial Cells (test code = 64014-5) NONE NONE [facility] CenterUrine Frjjj5350-65-55 22:27:00* Test Item Value Reference Range Interpretation Comments Urine Mucus (test code = 8247-9) RARE RARE [facility] CenterU[facility] SJR9969-32-97 22:27:00* Test Item Value Reference Range Interpretation Comments Urine WBC (test code = 5821-4) 0-5 0-5 [facility] RAZ7040-54-55 22:27:00* Test Item Value Reference Range Interpretation Comments Urine RBC (test code = 16742-5) NONE 0-5 [facility] Urungdtv1413-64-38 22:27:00* Test Item Value Reference Range Interpretation Comments Urine Bacteria (test code = 40972-7) NONE NONE [facility] Epithelial Rwqpq2165-57-28 22:27:00 * Test Item Value Reference Range Interpretation Comments Urine Epithelial Cells (test code = 60712-5) NONE NONE [facility] Jadjv1951-73-78 22:27:00* Test Item Value Reference Range Interpretation Comments Urine Mucus (test code = 8247-9) RARE RARE [facility] ISQ2482-82-61 22:27:00* Test Item Value Reference Range Interpretation Comments Urine WBC (test code = 5821-4) 0-5 0-5 [facility] ZFJ6035-65-09 22:27:00* Test Item Value Reference Range Interpretation Comments Urine RBC (test code = 14709-0) NONE 0-5 [facility] Kkylqwli3844-39-56 22:27:00* Test Item Value Reference Range Interpretation Comments Urine Bacteria (test code = 73174-9) NONE NONE [facility] Epithelial Wttqa7911-28-75 22:27:00 * Test Item Value Reference Range Interpretation Comments Urine Epithelial Cells (test code = 62953-7) NONE NONE [facility] Jtvqb4631-08-54 22:27:00* Test Item Value Reference Range Interpretation Comments Urine Mucus (test code = 8247-9) RARE RARE [facility] Blmug3238-73-61 22:13:00* Test Item Value Reference Range Interpretation Comments Urine Color (test code = 5778-6) YELLOW YELLOW [facility] Jhtadwx8087-59-26 22:13:00* Test Item Value Reference Range Interpretation Comments Urine Clarity (test code = 53687-0) CLEAR CLEAR [facility] CenterUrine Specific Mifnrik7764-32-47 22:13:00 * Test Item Value Reference Range Interpretation Comments Urine Specific Gilbert (test code = 5811-5) 1.025 1.010-1.02 5 [facility] CenterU[facility] fN5207-98-78 22:13:00* Test Item Value Reference Range Interpretation Comments Urine pH (test code = 37816-1) 6 5-7 [facility] Leukocyte Vdbpxnaz3693-78-92 22:13:00* Test Item Value Reference Range Interpretation Comments Urine Leukocyte Esterase (test code = 5799-2) NEGATIVE NEGATIVE [facility] Ramdmxq0267-63-41 22:13:00* Test Item Value Reference Range Interpretation Comments Urine Nitrite (test code = 68310-3) NEGATIVE NEGATIVE [facility] Yazkyjz8716-85-94 22:13:00* Test Item Value Reference Range Interpretation Comments Urine Protein (test code = 5804-0) NEGATIVE NEGATIVE [facility] Glucose (UA)2018-02-11 22:13:00* Test Item Value Reference Range Interpretation Comments Urine Glucose (UA) (test code = 2349-9) NEGATIVE NEGATIVE [facility] Rgpmtif0731-35-35 22:13:00* Test Item Value Reference Range Interpretation Comments Urine Ketones (test code = 22967-3) NEGATIVE NEGATIVE [facility] Mbgfayscoitr1757-13-17 22:13:00* Test Item Value Reference Range Interpretation Comments Urine Urobilinogen (test code = 70495-8) 0.2 0.2-1 [facility] Center[facility] Enqiuezps4432-31-33 22:13:00* Test Item Value Reference Range Interpretation Comments Urine Bilirubin (test code = 1978-6) NEGATIVE NEGATIVE [facility] Rlywg9822-95-06 22:13:00* Test Item Value Reference Range Interpretation Comments Urine Blood (test code = 77367-3) NEGATIVE NEGATIVE [facility] Center[facility] Uwyag9167-54-83 22:13:00* Test Item Value Reference Range Interpretation Comments Urine Color (test code = 5778-6) YELLOW YELLOW [facility] CenterU[facility] Xlvsvza5426-97-45 22:13:00* Test Item Value Reference Range Interpretation Comments Urine Clarity (test code = 74993-8) CLEAR CLEAR [facility] CenterU[facility] Specific Usgroek5647-44-24 22:13:00 * Test Item Value Reference Range Interpretation Comments Urine Specific Gilbert (test code = 5811-5) 1.025 1.010-1.02 5 [facility] CenterU[facility] cU7475-11-20 22:13:00* Test Item Value Reference Range Interpretation Comments Urine pH (test code = 20309-4) 6 5-7 [facility] Leukocyte Rlmvqafa3025-10-85 22:13:00* Test Item Value Reference Range Interpretation Comments Urine Leukocyte Esterase (test code = 5799-2) NEGATIVE NEGATIVE [facility] Jroxmic1171-56-51 22:13:00* Test Item Value Reference Range Interpretation Comments Urine Nitrite (test code = 64579-1) NEGATIVE NEGATIVE [facility] Btgdzch8831-40-87 22:13:00* Test Item Value Reference Range Interpretation Comments Urine Protein (test code = 5804-0) NEGATIVE NEGATIVE [facility] Glucose (UA)2018-02-11 22:13:00* Test Item Value Reference Range Interpretation Comments Urine Glucose (UA) (test code = 2349-9) NEGATIVE NEGATIVE [facility] Jmkunwi6961-23-68 22:13:00* Test Item Value Reference Range Interpretation Comments Urine Ketones (test code = 66089-3) NEGATIVE NEGATIVE [facility] Bzbndbujsoxo0792-53-52 22:13:00* Test Item Value Reference Range Interpretation Comments Urine Urobilinogen (test code = 01228-2) 0.2 0.2-1 [facility] Center[facility] Ovvpoljgt0219-20-68 22:13:00* Test Item Value Reference Range Interpretation Comments Urine Bilirubin (test code = 1978-6) NEGATIVE NEGATIVE [facility] Ucyjj9621-63-86 22:13:00* Test Item Value Reference Range Interpretation Comments Urine Blood (test code = 47810-7) NEGATIVE NEGATIVE [facility] Gpian6507-23-88 22:13:00* Test Item Value Reference Range Interpretation Comments Urine Color (test code = 5778-6) YELLOW YELLOW [facility] Flbvljf7634-32-47 22:13:00* Test Item Value Reference Range Interpretation Comments Urine Clarity (test code = 03069-6) CLEAR CLEAR [facility] Specific Xuunwyy9540-37-70 22:13:00 * Test Item Value Reference Range Interpretation Comments Urine Specific Gilbert (test code = 5811-5) 1.025 1.010-1.02 5 [facility] lG6833-31-10 22:13:00* Test Item Value Reference Range Interpretation Comments Urine pH (test code = 82589-6) 6 5-7 [facility] Leukocyte Eunxyymv8672-13-77 22:13:00* Test Item Value Reference Range Interpretation Comments Urine Leukocyte Esterase (test code = 5799-2) NEGATIVE NEGATIVE [facility] Lrqghrf2380-81-29 22:13:00* Test Item Value Reference Range Interpretation Comments Urine Nitrite (test code = 46084-4) NEGATIVE NEGATIVE [facility] Vqzqnbk5970-92-31 22:13:00* Test Item Value Reference Range Interpretation Comments Urine Protein (test code = 5804-0) NEGATIVE NEGATIVE [facility] Glucose (UA)2018-02-11 22:13:00* Test Item Value Reference Range Interpretation Comments Urine Glucose (UA) (test code = 2349-9) NEGATIVE NEGATIVE [facility] Jugoset2912-57-99 22:13:00* Test Item Value Reference Range Interpretation Comments Urine Ketones (test code = 30133-3) NEGATIVE NEGATIVE [facility] Vqbtkzakigrw9049-70-90 22:13:00* Test Item Value Reference Range Interpretation Comments Urine Urobilinogen (test code = 33655-5) 0.2 0.2-1 [facility] Bupnhpcfz3925-81-43 22:13:00* Test Item Value Reference Range Interpretation Comments Urine Bilirubin (test code = 1978-6) NEGATIVE NEGATIVE [facility] Vgdhc4720-42-39 22:13:00* Test Item Value Reference Range Interpretation Comments Urine Blood (test code = 79549-0) NEGATIVE NEGATIVE [facility] CHE[facility] J1731-68-78 13:36:00 [facility] [address] [address] Patient Name: ÁNGEL EMMANUEL MR #: [id number] : 1955 Age/Sex: 62/M Req #: [id number] Adm Physician: Ordered by: LOBO CARDOZA VERIFICATION REP Report #: [id number] Location: ER Room/ Bed: Procedure: [id number] CT/CT CHEST W Exam Date: 0 11/07/17 Exam Time: 1240 REPORT STATUS: Signed EXAM: CT Chest WITH contrast 11/07/2017 12:10 PM INDICATION: COMPARISON: Chest radiograph 11/07/2017 and 08/17/2015 TECHNIQUE: Spiral CT images of the chest were performed from the lung apices through the level of the adrenal glands after the IV contrast administration. Thin section recons tructions were obtained with special concentration on the pulmonary arteries. IV CONTRAST: 100 mL of Isovue-370 ORAL CONTRAST: None COMPLICATIONS: None RADIATION DOSE: Total DLP: 524.7 mGy*cm Estimated effective dose: (DLP x 0.015 x size factor) mSv CTDIvol has been reviewed. It is below the limits set by the Radiation P rotocol Committee (RPC). FINDINGS: LINES/ TUBES: None. PULMONARY ARTERIES: No filling defects are identified in the main, right or left pulmona ry arteries to their segmental and subsegmental levels, to suggest pulmonary embolism. The main pulmonary artery is normal in size. LUNGS AND AIRWAYS: Diffuse peribronchial wall thickening in both lower lobes. Patchy groundglass opacities in both lower lobes without consolidations, suspicious pulmonary n odules or masses. No honeycombing. No endobronchial lesions. No bronchiectasi s. PLEURA: The pleural spaces are clear. Predominant pleural fat in both po sterior lower lobes measuring up to 1.9 cm in thickness on the left and 1.3 cm on the right suggestive of breakdown and extrapleural fat versus benign pleur al lipomas. HEART AND MEDIASTINUM: Anterior mediastinal lipomatosis, kay gn finding. The thyroid gland is normal. Few noncalcified mediastinal and gallo ateral hilar enlarged lymph nodes. For example, there is a 1.5 cm subcarinal l ymph node and a 1.1 cm right proximal hilar lymph node. The heart is normal i n size. There is no pericardial effusion. The thoracic aorta is normal. UPPER ABDOMEN: Redundant perihepatic mesenteric fat. BONES: Degenerati ve changes of the thoracic spine. SOFT TISSUES: Unremarkable. IMPRESSI ON: 1. No pulmonary embolism. 2. CT findings suggestive of acute bronchit is. 3. Mediastinal and bilateral hilar lymphadenopathy may be reactive. 4. Recommend follow-up chest radiograph in [address] chest in 3 months to d emonstrate resolution and exclude underlying pathology, including inflammatory processes such as sarcoidosis or a more chronic process such as interstitial lung disease. Signed by: Dr. Meghan Parker M.D. on 11/07/2017 1:50 PM Dictated By: MEGHAN PARKER MD 1350 Transcribed By: ROLAND on 1350 COPY TO: LOBO CARDOZA NP B-Type Natriuretic Peptide 2017-11-07 11:36:00* Test Item Value Reference Range Interpretation Comments B-Type Natriuretic Peptide (test code = 77109-4) 22.5 0-100 [facility] Hwbmjhd8065-01-28 11:36:00* Test Item Value Reference Range Interpretation Comments B-Type Natriuretic Peptide (test code = 58902-8) 22.5 0-100 [facility]tic Rbboazi0063-68-42 11:36:00* Test Item Value Reference Range Interpretation Comments B-Type Natriuretic Peptide (test code = 43769-2) 22.5 0-100 [facility]tic Snbwpsl0992-72-79 11:36:00* Test Item Value Reference Range Interpretation Comments B-Type Natriuretic Peptide (test code = 60797-3) 22.5 0-100 [facility] CenterCERVICAL SPINE 4 OR 5 KEHSL9391-25-43 11:28:00 [facility] [address] [address] Patient Name: ÁNGEL EMMANUEL MR #: [id number] : 1955 Age/Sex: 62/M Req #: [id number] Adm Physician: Ordered by: LOBO CARDOZA VERIFICATION REP Report #: [id number] Location: ER Room/Bed: Procedure: [id number] DX/CERVICAL SPINE 4 OR 5 EWS Exam Date: 11/07/17 Exam Time: 1100 REPORT STATUS: Signed Cervical Spine, 6 views HISTORY: Pain. Cervical ra diculopathy COMPARISON: None. FINDINGS: Limited sensitivity for detect ion of subtle fractures and ligamentous abnormalities. On the lateral vie w, the cervical spine is visualized from the skull base to . The alignmen t is normal. No acute displaced fracture involving the visualized cervical sp ine. Disc Spaces and Uncovertebral Joints: Unremarkable. Facets: The facet joints are unremarkable. IMPRESSION: No acute radiographic abnormality. Signed by: Dr. Meghan Parker M.D. on 11/07/2017 11: 30 AM Dictated By: MEGHAN PARKER MD 1130 Transcribed By: ROLAND on 11/07/17 1130 COPY TO: LOBO CARDOZA VERIFICATION REP Creatine Kinase RR3272-87-74 11:25:00* Test Item Value Reference Range Interpretation Comments Creatine Kinase MB (test code = 12173-8) 2.20 0-5.0 [place] 69948018-09-23 11:25:00* Test Item Value Reference Range Interpretation Comments Troponin I (test code = HTQ5021) 0.005 0-0.300 [facility] CenterCreatine Kinase UA6110-23-15 11:25:00* Test Item Value Reference Range Interpretation Comments Creatine Kinase MB (test code = 30324-3) 2.20 0-5.0 [place] 69948018-09-23 11:25:00* Test Item Value Reference Range Interpretation Comments Troponin I (test code = DMW6686) 0.005 0-0.300 [facility] CenterCreatine Kinase LG9334-44-95 11:25:00* Test Item Value Reference Range Interpretation Comments Creatine Kinase MB (test code = 71736-3) 2.20 0-5.0 [place] 69948018-09-23 11:25:00* Test Item Value Reference Range Interpretation Comments Troponin I (test code = LNG7929) 0.005 0-0.300 [facility] CenterCreatine Kinase KB9544-55-80 11:25:00* Test Item Value Reference Range Interpretation Comments Creatine Kinase MB (test code = 00961-7) 2.20 0-5.0 [place] [id number] 11:25:00* Test Item Value Reference Range Interpretation Comments Troponin I (test code = MZZ9158) 0.005 0-0.300 [facility] CenterCHEST 2 XNUUF3367-25-27 11:23:[address] [address] Patient Name: ÁNGEL EMMANUEL MR #: [id number] : 1955 Age/Sex: 62/M Req #: [id number] Adm Physician: Ordered by: LOBO CARDOZA VERIFICATION REP Report #: [id number] Location: ER Room/ Bed: Procedure: [id number] DX/CHEST 2 VIEWS Exam Date : 11/07/17 Exam Time: 1100 REPORT STATUS: Karen d EXAMINATION: CHEST 2 VIEWS INDICATION: Neck and shoulder pain on the left for 2 days COMPARISON: Chest radiograph 09/24/2017, 09/03/2015, and 08/17/2015 FINDINGS: PA and lateral views TUBES a nd LINES: None. LUNGS: Lungs are well inflated. Left lower lobe/lingula linear airspace opacity with volume loss has progressed since 2016. There is no evidence of pneumonia or pulmonary edema. PLEURA: No pleural effusion or pneumothorax. HEART AND MEDIASTINUM: The cardiomediastinal silhouette is unremarkable. BONES AND SOFT TISSUES: No acute osseous lesion. Soft t issues are unremarkable. UPPER ABDOMEN: No free air under the diaphragm. Persistent mild elevation of the right hemidiaphragm. IMPRESSION: Prog ressive volume loss in the left lower lobe and lingula when compared to 2016. Given patient's symptoms, consider further evaluation with CT chest with IV co ntrast to exclude intraluminal lesion. Signed by: Dr. Meghan Parker M.D. on 11/07/2017 11:27 AM Dictated By: MEGHAN PARKER MD 26 Transcr ibed By: ROLAND on 11/07/171126 COPY TO: LOBO CARDOZA NP Prothrombin Vlao3941-45-08 11:17:00* Test Item Value Reference Range Interpretation Comments Prothrombin Time (test code = 5902-2) 13.0 11.9-14.5 [facility] CenterProthromb Time International Ratio 2017-11-07 11:17:00* Test Item Value Reference Range Interpretation Comments Prothromb Time International Ratio (test code = 6301-6) 0.90 Oral Anticoagulant Therapy INR Values:1. Low Intensity Therapy 1.5 - 2.02 . Moderate Intensity Therapy 2.0 - 3.03. High Intensity Therapy(1) 2.5 - 3. 54. High Intensity Therapy(2) 3.0 - 4.05. Panic Value INR > 5.0 [facility] CenterActivated Partial Thromboplast Time 2017-11-07 11:17:00* Test Item Value Reference Range Interpretation Comments Activated Partial Thromboplast Time (test code = 73982-3) 33.0 23.8-35.5 [facility] Zmzde4928-91-87 11:17:00* Test Item Value Reference Range Interpretation Comments Sodium Level (test code = 2951-2) 140 136-145 [facility] CenterPotassium Zgkgj8937-02-88 11:17:00* Test Item Value Reference Range Interpretation Comments Potassium Level (test code = 2823-3) 3.7 3.5-5.1 [facility] CenterChloride Zmmxy2787-35-71 11:17:00* Test Item Value Reference Range Interpretation Comments Chloride Level (test code = 2075-0) 102 98-107 [facility] CenterCarbon Dioxide Znjpq2160-50-24 11:17:00* Test Item Value Reference Range Interpretation Comments Carbon Dioxide Level (test code = 2028-9) 28 22-29 [facility] CenterAnion Epg4375-79-41 11:17:00* Test Item Value Reference Range Interpretation Comments Anion Gap (test code = 46511-1) 13.7 8-16 [facility] CenterBlood Urea Antgtyxm2524-63-97 11:17:00* Test Item Value Reference Range Interpretation Comments Blood Urea Nitrogen (test code = 3094-0) 13 7-26 [facility] CenterCreatinine2018-09-23 11:17:00* Test Item Value Reference Range Interpretation Comments Creatinine (test code = 2160-0) 1.00 0.72-1.25 [facility] CenterBUN/Creatinine Hkphc1681-79-28 11:17:00* Test Item Value Reference Range Interpretation Comments BUN/Creatinine Ratio (test code = 3097-3) 13 6-25 [facility] CenterEstimat Glomerular Filtration Rate 2017-11-07 11:17:00* Test Item Value Reference Range Interpretation Comments Estimat Glomerular Filtration Rate (test code = 310261778) 60- >60 Ranges were taken from the National Kidney Disease Education Program and the [facility] Kidney Foundation literature.Reference ranges:60 or greater: Rupvsy53-02 ( for 3 consecutive months): Chronic kidney disease 15 or less: Kidney failurePermian Regional Medical CenterGlucose Ttwzv5626-84-35 11:17:00* Test Item Value Reference Range Interpretation Comments Glucose Level (test code = KHG2398) 119 74-118 H [facility] CenterCalcium Ckvvk9292-29-07 11:17:00* Test Item Value Reference Range Interpretation Comments Calcium Level (test code = 49039-6) 9.8 8.4-10.2 [facility] CenterMagnesium Djvrm0940-41-79 11:17:00* Test Item Value Reference Range Interpretation Comments Magnesium Level (test code = 56784-5) 2.2 1.3-2.1 H [facility] CenterTotal Xssgrfemr6126-88-60 11:17:00* Test Item Value Reference Range Interpretation Comments Total Bilirubin (test code = 1975-2) 1.6 0.2-1.2 H [facility] CenterAspartate Amino Transf (AST/SGOT) 2017-11-07 11:17:00* Test Item Value Reference Range Interpretation Comments Aspartate Amino Transf (AST/SGOT) (test code = Aspartate Amino Transf (AST/SGOT)) 26 5-34 [facility] CenterAlanine Aminotransferase (ALT/SGPT) 2017-11-07 11:17:00* Test Item Value Reference Range Interpretation Comments Alanine Aminotransferase (ALT/SGPT) (test code = 1742-6) 25 0-55 [facility] CenterTotal Ugqwgja1155-15-36 11:17:00* Test Item Value Reference Range Interpretation Comments Total Protein (test code = 2885-2) 7.7 6.5-8.1 [facility] CenterAlbumin2018-09-23 11:17:00* Test Item Value Reference Range Interpretation Comments Albumin (test code = 1751-7) 4.4 3.5-5.0 [facility] CenterGlobulin2018-09-23 11:17:00* Test Item Value Reference Range Interpretation Comments Globulin (test code = 13560-8) 3.3 2.3-3.5 [facility] CenterAlbumin/Globulin Zlpjw3241-14-84 11:17:00 * Test Item Value Reference Range Interpretation Comments Albumin/Globulin Ratio (test code = 1759-0) 1.3 0.8-2.0 [facility] CenterAlkaline Zvcrjnrnzbh7783-37-13 11:17:00* Test Item Value Reference Range Interpretation Comments Alkaline Phosphatase (test code = 6768-6) 84 40-150 [facility] CenterCreatine Eezebx0369-87-51 11:17:00* Test Item Value Reference Range Interpretation Comments Creatine Kinase (test code = 2157-6) 217 30-200 H [facility] CenterAmylase Igluv8574-96-52 11:17:00* Test Item Value Reference Range Interpretation Comments Amylase Level (test code = 1798-8) 48 25-125 [facility] CenterLipase2018-09-23 11:17:00* Test Item Value Reference Range Interpretation Comments Lipase (test code = 3040-3) 13 8-78 [facility] CenterProthrombin Raol2068-67-22 11:17:00* Test Item Value Reference Range Interpretation Comments Prothrombin Time (test code = 5902-2) 13.0 11.9-14.5 [facility] CenterProthromb Time International Ratio 2017-11-07 11:17:00* Test Item Value Reference Range Interpretation Comments Prothromb Time International Ratio (test code = 6301-6) 0.90 Oral Anticoagulant Therapy INR Values:1. Low Intensity Therapy 1.5 - 2.02 . Moderate Intensity Therapy 2.0 - 3.03. High Intensity Therapy(1) 2.5 - 3. 54. High Intensity Therapy(2) 3.0 - 4.05. Panic Value INR > 5.0 [facility] CenterActivated Partial Thromboplast Time 2017-11-07 11:17:00* Test Item Value Reference Range Interpretation Comments Activated Partial Thromboplast Time (test code = 94146-0) 33.0 23.8-35.5 [facility] Hospitalodium Ldvix1257-33-55 11:17:00* Test Item Value Reference Range Interpretation Comments Sodium Level (test code = 2951-2) 140 136-145 [facility] CenterPotassium Bnbbu4302-49-15 11:17:00* Test Item Value Reference Range Interpretation Comments Potassium Level (test code = 2823-3) 3.7 3.5-5.1 [facility] CenterChloride Cjqcz8787-19-53 11:17:00* Test Item Value Reference Range Interpretation Comments Chloride Level (test code = 2075-0) 102 98-107 [facility] CenterCarbon Dioxide Xvmrc2776-82-73 11:17:00* Test Item Value Reference Range Interpretation Comments Carbon Dioxide Level (test code = 2028-9) 28 22-29 [facility] CenterAnion Ojd6226-63-09 11:17:00* Test Item Value Reference Range Interpretation Comments Anion Gap (test code = 15283-2) 13.7 8-16 [facility] CenterBlood Urea Ihgebmtb8934-44-67 11:17:00* Test Item Value Reference Range Interpretation Comments Blood Urea Nitrogen (test code = 3094-0) 13 7-26 [facility] CenterCreatinine2018-09-23 11:17:00* Test Item Value Reference Range Interpretation Comments Creatinine (test code = 2160-0) 1.00 0.72-1.25 [facility] CenterBUN/Creatinine Lkjdj4988-77-58 11:17:00* Test Item Value Reference Range Interpretation Comments BUN/Creatinine Ratio (test code = 3097-3) 13 6-25 [facility] CenterEstimat Glomerular Filtration Rate 2017-11-07 11:17:00* Test Item Value Reference Range Interpretation Comments Estimat Glomerular Filtration Rate (test code = 798504805) > 60 >60 Ranges were taken from the National Kidney Disease Education Program and the [facility] Foundation literature.Reference ranges:60 or greater: Tcbrhw30-18 ( for 3 consecutive months): Chronic kidney disease 15 or less: Kidney failurePermian Regional Medical CenterGlucose Qpdli0377-20-36 11:17:00* Test Item Value Reference Range Interpretation Comments Glucose Level (test code = VGF5404) 119 74-118 H [facility] CenterCalcium Qhzek2420-17-68 11:17:00* Test Item Value Reference Range Interpretation Comments Calcium Level (test code = 34137-8) 9.8 8.4-10.2 [facility] CenterMagnesium Wixdj8768-20-18 11:17:00* Test Item Value Reference Range Interpretation Comments Magnesium Level (test code = 12607-7) 2.2 1.3-2.1 H [facility] CenterTotal Dwwtihhqo0799-26-06 11:17:00* Test Item Value Reference Range Interpretation Comments Total Bilirubin (test code = 1975-2) 1.6 0.2-1.2 H [facility] CenterAspartate Amino Transf (AST/SGOT) 2017-11-07 11:17:00* Test Item Value Reference Range Interpretation Comments Aspartate Amino Transf (AST/SGOT) (test code = Aspartate Amino Transf (AST/SGOT)) 26 5-34 [facility] CenterAlanine Aminotransferase (ALT/SGPT) 2017-11-07 11:17:00* Test Item Value Reference Range Interpretation Comments Alanine Aminotransferase (ALT/SGPT) (test code = 1742-6) 25 0-55 [facility] CenterTotal Dsoqcrw7321-78-70 11:17:00* Test Item Value Reference Range Interpretation Comments Total Protein (test code = 2885-2) 7.7 6.5-8.1 [facility] CenterAlbumin2018-09-23 11:17:00* Test Item Value Reference Range Interpretation Comments Albumin (test code = 1751-7) 4.4 3.5-5.0 [facility] CenterGlobulin2018-09-23 11:17:00* Test Item Value Reference Range Interpretation Comments Globulin (test code = 83408-2) 3.3 2.3-3.5 [facility] CenterAlbumin/Globulin Lxhir6990-06-86 11:17:00 * Test Item Value Reference Range Interpretation Comments Albumin/Globulin Ratio (test code = 1759-0) 1.3 0.8-2.0 [facility] CenterAlkaline Ormrzucbezg2249-37-29 11:17:00* Test Item Value Reference Range Interpretation Comments Alkaline Phosphatase (test code = 6768-6) 84 40-150 [facility] CenterCreatine Zkzima3177-01-27 11:17:00* Test Item Value Reference Range Interpretation Comments Creatine Kinase (test code = 2157-6) 217 30-200 H [facility] CenterAmylase Bzqds9754-96-03 11:17:00* Test Item Value Reference Range Interpretation Comments Amylase Level (test code = 1798-8) 48 25-125 [facility] CenterLipase2018-09-23 11:17:00* Test Item Value Reference Range Interpretation Comments Lipase (test code = 3040-3) 13 8-78 [facility] CenterProthrombin Pmsq7647-81-35 11:17:00* Test Item Value Reference Range Interpretation Comments Prothrombin Time (test code = 5902-2) 13.0 11.9-14.5 [facility] CenterProthromb Time International Ratio 2017-11-07 11:17:00* Test Item Value Reference Range Interpretation Comments Prothromb Time International Ratio (test code = 6301-6) 0.90 Oral Anticoagulant Therapy INR Values:1. Low Intensity Therapy 1.5 - 2.02 . Moderate Intensity Therapy 2.0 - 3.03. High Intensity Therapy(1) 2.5 - 3. 54. High Intensity Therapy(2) 3.0 - 4.05. Panic Value INR > 5.0 [facility] CenterActivated Partial Thromboplast Time 2017-11-07 11:17:00* Test Item Value Reference Range Interpretation Comments Activated Partial Thromboplast Time (test code = 28105-4) 33.0 23.8-35.5 [facility]odium Fckyd9606-66-95 11:17:00* Test Item Value Reference Range Interpretation Comments Sodium Level (test code = 2951-2) 140 136-145 [facility] CenterPotassium Zzqni2811-58-69 11:17:00* Test Item Value Reference Range Interpretation Comments Potassium Level (test code = 2823-3) 3.7 3.5-5.1 [facility] CenterChloride Lymiz3978-50-32 11:17:00* Test Item Value Reference Range Interpretation Comments Chloride Level (test code = 2075-0) 102 98-107 [facility] CenterCarbon Dioxide Vikbn5263-57-10 11:17:00* Test Item Value Reference Range Interpretation Comments Carbon Dioxide Level (test code = 2028-9) 28 22-29 [facility] CenterAnion Mmt9874-73-57 11:17:00* Test Item Value Reference Range Interpretation Comments Anion Gap (test code = 88988-5) 13.7 8-16 [facility] CenterBlood Urea Hcoxsomv9121-10-87 11:17:00* Test Item Value Reference Range Interpretation Comments Blood Urea Nitrogen (test code = 3094-0) 13 7-26 [facility] CenterCreatinine2018-09-23 11:17:00* Test Item Value Reference Range Interpretation Comments Creatinine (test code = 2160-0) 1.00 0.72-1.25 [facility] CenterBUN/Creatinine Chphl0146-53-18 11:17:00* Test Item Value Reference Range Interpretation Comments BUN/Creatinine Ratio (test code = 3097-3) 13 6-25 [facility] CenterEstimat Glomerular Filtration Rate 2017-11-07 11:17:00* Test Item Value Reference Range Interpretation Comments Estimat Glomerular Filtration Rate (test code = 211857236) > 60 >60 Ranges were taken from the National Kidney Disease Education Program and the [facility] Foundation literature.Reference ranges:60 or greater: Fkftmk36-42 ( for 3 consecutive months): Chronic kidney disease 15 or less: Kidney failurePermian Regional Medical CenterGlucose Vrdvn0730-22-51 11:17:00* Test Item Value Reference Range Interpretation Comments Glucose Level (test code = QCI5652) 119 74-118 H [facility] CenterCalcium Xjmaw8289-22-55 11:17:00* Test Item Value Reference Range Interpretation Comments Calcium Level (test code = 85208-5) 9.8 8.4-10.2 [facility] CenterMagnesium Pziza9696-86-93 11:17:00* Test Item Value Reference Range Interpretation Comments Magnesium Level (test code = 05455-9) 2.2 1.3-2.1 H [facility] CenterTotal Dnuqgfkpi5679-66-04 11:17:00* Test Item Value Reference Range Interpretation Comments Total Bilirubin (test code = 1975-2) 1.6 0.2-1.2 H [facility] CenterAspartate Amino Transf (AST/SGOT) 2017-11-07 11:17:00* Test Item Value Reference Range Interpretation Comments Aspartate Amino Transf (AST/SGOT) (test code = Aspartate Amino Transf (AST/SGOT)) 26 5-34 [facility] CenterAlanine Aminotransferase (ALT/SGPT) 2017-11-07 11:17:00* Test Item Value Reference Range Interpretation Comments Alanine Aminotransferase (ALT/SGPT) (test code = 1742-6) 25 0-55 [facility] CenterTotal Cvdvvky7324-73-03 11:17:00* Test Item Value Reference Range Interpretation Comments Total Protein (test code = 2885-2) 7.7 6.5-8.1 [facility] CenterAlbumin2018-09-23 11:17:00* Test Item Value Reference Range Interpretation Comments Albumin (test code = 1751-7) 4.4 3.5-5.0 [facility] CenterGlobulin2018-09-23 11:17:00* Test Item Value Reference Range Interpretation Comments Globulin (test code = 65517-3) 3.3 2.3-3.5 [facility] CenterAlbumin/Globulin Fuywo9661-02-69 11:17:00 * Test Item Value Reference Range Interpretation Comments Albumin/Globulin Ratio (test code = 1759-0) 1.3 0.8-2.0 [facility] CenterAlkaline Yyxmxxcmomj7757-16-76 11:17:00* Test Item Value Reference Range Interpretation Comments Alkaline Phosphatase (test code = 6768-6) 84 40-150 [facility] CenterCreatine Tybqrl9668-30-35 11:17:00* Test Item Value Reference Range Interpretation Comments Creatine Kinase (test code = 2157-6) 217 30-200 H [facility] CenterAmylase Smtyc0506-36-19 11:17:00* Test Item Value Reference Range Interpretation Comments Amylase Level (test code = 1798-8) 48 25-125 [facility] CenterLipase2018-09-23 11:17:00* Test Item Value Reference Range Interpretation Comments Lipase (test code = 3040-3) 13 8-78 [facility] CenterProthrombin Fyoz0186-05-93 11:17:00* Test Item Value Reference Range Interpretation Comments Prothrombin Time (test code = 5902-2) 13.0 11.9-14.5 [facility] CenterProthromb Time International Ratio 2017-11-07 11:17:00* Test Item Value Reference Range Interpretation Comments Prothromb Time International Ratio (test code = 6301-6) 0.90 Oral Anticoagulant Therapy INR Values:1. Low Intensity Therapy 1.5 - 2.02 . Moderate Intensity Therapy 2.0 - 3.03. High Intensity Therapy(1) 2.5 - 3. 54. High Intensity Therapy(2) 3.0 - 4.05. Panic Value INR > 5.0 [facility] CenterActivated Partial Thromboplast Time 2017-11-07 11:17:00* Test Item Value Reference Range Interpretation Comments Activated Partial Thromboplast Time (test code = 16043-1) 33.0 23.8-35.5 [facility] Ebfnx9282-89-61 11:17:00* Test Item Value Reference Range Interpretation Comments Sodium Level (test code = 2951-2) 140 136-145 [facility] CenterPotassium Beyck6298-90-43 11:17:00* Test Item Value Reference Range Interpretation Comments Potassium Level (test code = 2823-3) 3.7 3.5-5.1 [facility] CenterChloride Sjzgb9391-27-68 11:17:00* Test Item Value Reference Range Interpretation Comments Chloride Level (test code = 2075-0) 102 98-107 [facility] CenterCarbon Dioxide Hquvb1960-02-43 11:17:00* Test Item Value Reference Range Interpretation Comments Carbon Dioxide Level (test code = 2028-9) 28 22-29 [facility] CenterAnion Fzq8238-40-19 11:17:00* Test Item Value Reference Range Interpretation Comments Anion Gap (test code = 95643-4) 13.7 8-16 [facility] CenterBlood Urea Pqvbzzes9734-94-66 11:17:00* Test Item Value Reference Range Interpretation Comments Blood Urea Nitrogen (test code = 3094-0) 13 7-26 [facility] CenterCreatinine2018-09-23 11:17:00* Test Item Value Reference Range Interpretation Comments Creatinine (test code = 2160-0) 1.00 0.72-1.25 [facility] CenterBUN/Creatinine Coxvl3750-89-58 11:17:00* Test Item Value Reference Range Interpretation Comments BUN/Creatinine Ratio (test code = 3097-3) 13 6-25 [facility] CenterEstimat Glomerular Filtration Rate 2017-11-07 11:17:00* Test Item Value Reference Range Interpretation Comments Estimat Glomerular Filtration Rate (test code = 677591960) > 60 >60 Ranges were taken from the National Kidney Disease Education Program and the [facility] literature.Reference ranges:60 or greater: Kweods81-47 ( for 3 consecutive months): Chronic kidney disease 15 or less: Kidney failurePermian [facility] Medical CenterGlucose Ndmba8554-17-61 11:17:00* Test Item Value Reference Range Interpretation Comments Glucose Level (test code = ADY5800) 119 74-118 H [facility] CenterCalcium Iksxj3154-36-39 11:17:00* Test Item Value Reference Range Interpretation Comments Calcium Level (test code = 33215-1) 9.8 8.4-10.2 [facility] CenterMagnesium Dszaq3211-51-60 11:17:00* Test Item Value Reference Range Interpretation Comments Magnesium Level (test code = 62624-8) 2.2 1.3-2.1 H [facility] CenterTotal Eghdzdlxf2303-12-23 11:17:00* Test Item Value Reference Range Interpretation Comments Total Bilirubin (test code = 1975-2) 1.6 0.2-1.2 H [facility] CenterAspartate Amino Transf (AST/SGOT) 2017-11-07 11:17:00* Test Item Value Reference Range Interpretation Comments Aspartate Amino Transf (AST/SGOT) (test code = Aspartate Amino Transf (AST/SGOT)) 26 5-34 [facility] CenterAlanine Aminotransferase (ALT/SGPT) 2017-11-07 11:17:00* Test Item Value Reference Range Interpretation Comments Alanine Aminotransferase (ALT/SGPT) (test code = 1742-6) 25 0-55 [facility] CenterTotal Mkocrbb9718-51-40 11:17:00* Test Item Value Reference Range Interpretation Comments Total Protein (test code = 2885-2) 7.7 6.5-8.1 [facility] CenterAlbumin2018-09-23 11:17:00* Test Item Value Reference Range Interpretation Comments Albumin (test code = 1751-7) 4.4 3.5-5.0 [facility] CenterGlobulin2018-09-23 11:17:00* Test Item Value Reference Range Interpretation Comments Globulin (test code = 96940-5) 3.3 2.3-3.5 [facility] CenterAlbumin/Globulin Oskgq6202-97-56 11:17:00 * Test Item Value Reference Range Interpretation Comments Albumin/Globulin Ratio (test code = 1759-0) 1.3 0.8-2.0 [facility] CenterAlkaline Zippjaefpmk0812-62-44 11:17:00* Test Item Value Reference Range Interpretation Comments Alkaline Phosphatase (test code = 6768-6) 84 40-150 [facility] CenterCreatine Svjzqk7464-60-20 11:17:00* Test Item Value Reference Range Interpretation Comments Creatine Kinase (test code = 2157-6) 217 30-200 H [facility] CenterAmylase Iwrxk5540-96-78 11:17:00* Test Item Value Reference Range Interpretation Comments Amylase Level (test code = 1798-8) 48 25-125 [facility] CenterLipase2018-09-23 11:17:00* Test Item Value Reference Range Interpretation Comments Lipase (test code = 3040-3) 13 8-78 [facility] CenterUrine Cissv4574-83-84 11:09:00* Test Item Value Reference Range Interpretation Comments Urine Color (test code = 5778-6) YELLOW YELLOW [facility] CenterUrine Agequrw5639-59-19 11:09:00* Test Item Value Reference Range Interpretation Comments Urine Clarity (test code = 04562-9) CLEAR CLEAR [facility] CenterUrine Specific Jkkekoq6374-12-70 11:09:00 * Test Item Value Reference Range Interpretation Comments Urine Specific Gilbert (test code = 5811-5) 1.030 1.010-1.02 5 H [facility] CenterUrine oV7853-75-54 11:09:00* Test Item Value Reference Range Interpretation Comments Urine pH (test code = 03719-3) 6 5-7 [facility] CenterUrine Leukocyte Kmfbvxsd0550-21-78 11:09:00* Test Item Value Reference Range Interpretation Comments Urine Leukocyte Esterase (test code = 5799-2) NEGATIVE NEGATIVE [facility] CenterUrine Hmvyadt2967-14-43 11:09:00* Test Item Value Reference Range Interpretation Comments Urine Nitrite (test code = 76970-3) NEGATIVE NEGATIVE [facility] CenterUrine Ssznkdh3996-16-93 11:09:00* Test Item Value Reference Range Interpretation Comments Urine Protein (test code = 5804-0) NEGATIVE NEGATIVE [facility] CenterUrine Glucose (UA)2017-11-07 11:09:00* Test Item Value Reference Range Interpretation Comments Urine Glucose (UA) (test code = 2349-9) NEGATIVE NEGATIVE [facility] CenterUrine Wajhzwp4470-52-94 11:09:00* Test Item Value Reference Range Interpretation Comments Urine Ketones (test code = 45900-2) NEGATIVE NEGATIVE [facility] CenterUrine Ofiyjdxpxeor0701-24-50 11:09:00* Test Item Value Reference Range Interpretation Comments Urine Urobilinogen (test code = 62528-5) 0.2 0.2-1 [facility] CenterUrine Ifxlatyib2592-54-86 11:09:00* Test Item Value Reference Range Interpretation Comments Urine Bilirubin (test code = 1978-6) NEGATIVE NEGATIVE [facility] CenterUrine Psonr1719-08-87 11:09:00* Test Item Value Reference Range Interpretation Comments Urine Blood (test code = 67158-5) NEGATIVE NEGATIVE [facility] CenterUrine ZKJ5893-08-86 11:09:00* Test Item Value Reference Range Interpretation Comments Urine WBC (test code = 5821-4) 0-5 0-5 [facility] CenterUrine JWC8846-39-49 11:09:00* Test Item Value Reference Range Interpretation Comments Urine RBC (test code = 34752-9) 0-5 0-5 [facility] CenterUrine Ccmwddty1535-91-08 11:09:00* Test Item Value Reference Range Interpretation Comments Urine Bacteria (test code = 68135-2) RARE NONE [facility] CenterUrine Epithelial Kesqb2805-26-93 11:09:00 * Test Item Value Reference Range Interpretation Comments Urine Epithelial Cells (test code = 40435-7) RARE NONE [facility] CenterWhite Blood Vvvbe6722-32-80 11:00:00* Test Item Value Reference Range Interpretation Comments White Blood Count (test code = 6690-2) 5.63 4.8-10.8 [facility] CenterRed Blood Xqtrq0475-19-18 11:00:00* Test Item Value Reference Range Interpretation Comments Red Blood Count (test code = 789-8) 5.41 4.3-5.7 [facility] CenterHemoglobin2018-09-23 11:00:00* Test Item Value Reference Range Interpretation Comments Hemoglobin (test code = 77165-0) 16.1 14.0-18.0 [facility] CenterHematocrit2018-09-23 11:00:00* Test Item Value Reference Range Interpretation Comments Hematocrit (test code = 4544-3) 47.7 38.2-49.6 [facility] CenterMean Corpuscular Zarhdx5608-58-41 11:00:00* Test Item Value Reference Range Interpretation Comments Mean Corpuscular Volume (test code = 787-2) 88.2 81-99 [facility] CenterMean Corpuscular Oyrkuyuqog7286-10-51 11:00:00* Test Item Value Reference Range Interpretation Comments Mean Corpuscular Hemoglobin (test code = 785-6) 29.8 28-32 [facility] CenterMean Corpuscular Hemoglobin Concent 2017-11-07 11:00:00* Test Item Value Reference Range Interpretation Comments Mean Corpuscular Hemoglobin Concent (test code = 786-4) 33.8 31-35 [facility] CenterRed Cell Distribution Svxpl5279-91-19 11:00:00* Test Item Value Reference Range Interpretation Comments Red Cell Distribution Width (test code = 88351-9) 12.9 11.7 -14.4 [facility] CenterPlatelet Ciuho7615-05-45 11:00:00* Test Item Value Reference Range Interpretation Comments Platelet Count (test code = 777-3) 192 140-360 [facility] CenterNeutrophils (%) (Auto)2017-11-07 11:00:00 * Test Item Value Reference Range Interpretation Comments Neutrophils (%) (Auto) (test code = 98710-6) 52.0 38.7-80.0 [facility] CenterLymphocytes (%) (Auto)2017-11-07 11:00:00 * Test Item Value Reference Range Interpretation Comments Lymphocytes (%) (Auto) (test code = 736-9) 37.3 18.0-39.1 [facility] CenterMonocytes (%) (Auto)2017-11-07 11:00:00* Test Item Value Reference Range Interpretation Comments Monocytes (%) (Auto) (test code = 5905-5) 8.0 4.4-11.3 [facility] CenterEosinophils (%) (Auto)2017-11-07 11:00:00 * Test Item Value Reference Range Interpretation Comments Eosinophils (%) (Auto) (test code = 713-8) 1.4 0.0-6.0 [facility] CenterBasophils (%) (Auto)2017-11-07 11:00:00* Test Item Value Reference Range Interpretation Comments Basophils (%) (Auto) (test code = 706-2) 0.9 0.0-1.0 [facility] CenterIM GRANULOCYTES %2017-11-07 11:00:00* Test Item Value Reference Range Interpretation Comments IM GRANULOCYTES % (test code = IM GRANULOCYTES %) 0.4 0.0- 1.0 [facility] CenterNeutrophils # (Auto)2017-11-07 11:00:00* Test Item Value Reference Range Interpretation Comments Neutrophils # (Auto) (test code = 751-8) 2.9 2.1-6.9 [facility] CenterLymphocytes # (Auto)2017-11-07 11:00:00* Test Item Value Reference Range Interpretation Comments Lymphocytes # (Auto) (test code = 51599-8) 2.1 1.0-3.2 [facility] CenterMonocytes # (Auto)2017-11-07 11:00:00* Test Item Value Reference Range Interpretation Comments Monocytes # (Auto) (test code = 742-7) 0.5 0.2-0.8 [facility] CenterEosinophils # (Auto)2017-11-07 11:00:00* Test Item Value Reference Range Interpretation Comments Eosinophils # (Auto) (test code = 711-2) 0.1 0.0-0.4 [facility] CenterBasophils # (Auto)2017-11-07 11:00:00* Test Item Value Reference Range Interpretation Comments Basophils # (Auto) (test code = 704-7) 0.1 0.0-0.1 [facility] CenterAbsolute Immature Granulocyte (auto 2017-11-07 11:00:00* Test Item Value Reference Range Interpretation Comments Absolute Immature Granulocyte (auto (jadiel t code = Absolute Immature Granulocyte (auto) 0.02 0-0.1 [facility] CenterWhite Blood Cltfv2928-37-48 11:00:00* Test Item Value Reference Range Interpretation Comments White Blood Count (test code = 6690-2) 5.63 4.8-10.8 [facility] CenterRed Blood Trpcw8738-36-19 11:00:00* Test Item Value Reference Range Interpretation Comments Red Blood Count (test code = 789-8) 5.41 4.3-5.7 [facility] CenterHemoglobin2018-09-23 11:00:00* Test Item Value Reference Range Interpretation Comments Hemoglobin (test code = 08037-5) 16.1 14.0-18.0 [facility] CenterHematocrit2018-09-23 11:00:00* Test Item Value Reference Range Interpretation Comments Hematocrit (test code = 4544-3) 47.7 38.2-49.6 [facility] CenterMean Corpuscular Lphciv7794-72-98 11:00:00* Test Item Value Reference Range Interpretation Comments Mean Corpuscular Volume (test code = 787-2) 88.2 81-99 [facility] CenterMean Corpuscular Qwroixveme0595-21-02 11:00:00* Test Item Value Reference Range Interpretation Comments Mean Corpuscular Hemoglobin (test code = 785-6) 29.8 28-32 [facility] Hem[facility] Concent 2017-11-07 11:00:00* Test Item Value Reference Range Interpretation Comments Mean Corpuscular Hemoglobin Concent (test code = 786-4) 33.8 31-35 [facility] CenterRed Cell Distribution Lqilp6339-97-35 11:00:00* Test Item Value Reference Range Interpretation Comments Red Cell Distribution Width (test code = 46539-4) 12.9 11.7 -14.4 [facility] CenterPlatelet Whqqv8266-94-42 11:00:00* Test Item Value Reference Range Interpretation Comments Platelet Count (test code = 777-3) 192 140-360 [facility] CenterNeutrophils (%) (Auto)2017-11-07 11:00:00 * Test Item Value Reference Range Interpretation Comments Neutrophils (%) (Auto) (test code = 86890-2) 52.0 38.7-80.0 [facility] CenterLymphocytes (%) (Auto)2017-11-07 11:00:00 * Test Item Value Reference Range Interpretation Comments Lymphocytes (%) (Auto) (test code = 736-9) 37.3 18.0-39.1 [facility] CenterMonocytes (%) (Auto)2017-11-07 11:00:00* Test Item Value Reference Range Interpretation Comments Monocytes (%) (Auto) (test code = 5905-5) 8.0 4.4-11.3 [facility] CenterEosinophils (%) (Auto)2017-11-07 11:00:00 * Test Item Value Reference Range Interpretation Comments Eosinophils (%) (Auto) (test code = 713-8) 1.4 0.0-6.0 [facility] CenterBasophils (%) (Auto)2017-11-07 11:00:00* Test Item Value Reference Range Interpretation Comments Basophils (%) (Auto) (test code = 706-2) 0.9 0.0-1.0 [facility] CenterIM GRANULOCYTES %2017-11-07 11:00:00* Test Item Value Reference Range Interpretation Comments IM GRANULOCYTES % (test code = IM GRANULOCYTES %) 0.4 0.0- 1.0 [facility] CenterNeutrophils # (Auto)2017-11-07 11:00:00* Test Item Value Reference Range Interpretation Comments Neutrophils # (Auto) (test code = 751-8) 2.9 2.1-6.9 [facility] CenterLymphocytes # (Auto)2017-11-07 11:00:00* Test Item Value Reference Range Interpretation Comments Lymphocytes # (Auto) (test code = 80055-2) 2.1 1.0-3.2 [facility] CenterMonocytes # (Auto)2017-11-07 11:00:00* Test Item Value Reference Range Interpretation Comments Monocytes # (Auto) (test code = 742-7) 0.5 0.2-0.8 [facility] CenterEosinophils # (Auto)2017-11-07 11:00:00* Test Item Value Reference Range Interpretation Comments Eosinophils # (Auto) (test code = 711-2) 0.1 0.0-0.4 [facility] CenterBasophils # (Auto)2017-11-07 11:00:00* Test Item Value Reference Range Interpretation Comments Basophils # (Auto) (test code = 704-7) 0.1 0.0-0.1 [facility] CenterAbsolute Immature Granulocyte (auto 2017-11-07 11:00:00* Test Item Value Reference Range Interpretation Comments Absolute Immature Granulocyte (auto (jadiel t code = Absolute Immature Granulocyte (auto) 0.02 0-0.1 [facility] CenterWhite Blood Pixid9433-04-47 11:00:00* Test Item Value Reference Range Interpretation Comments White Blood Count (test code = 6690-2) 5.63 4.8-10.8 [facility] CenterRed Blood Xyosz7251-18-67 11:00:00* Test Item Value Reference Range Interpretation Comments Red Blood Count (test code = 789-8) 5.41 4.3-5.7 [facility] CenterHemoglobin2018-09-23 11:00:00* Test Item Value Reference Range Interpretation Comments Hemoglobin (test code = 02515-7) 16.1 14.0-18.0 [facility] CenterHematocrit2018-09-23 11:00:00* Test Item Value Reference Range Interpretation Comments Hematocrit (test code = 4544-3) 47.7 38.2-49.6 [facility] CenterMean Corpuscular Lyhfsm9674-65-56 11:00:00* Test Item Value Reference Range Interpretation Comments Mean Corpuscular Volume (test code = 787-2) 88.2 81-99 [facility] CenterMean Corpuscular Ahpjzimfpw1898-47-77 11:00:00* Test Item Value Reference Range Interpretation Comments Mean Corpuscular Hemoglobin (test code = 785-6) 29.8 28-32 [facility] CenterMean Corpuscular Hemoglobin Concent 2017-11-07 11:00:00* Test Item Value Reference Range Interpretation Comments Mean Corpuscular Hemoglobin Concent (test code = 786-4) 33.8 31-35 [facility] CenterRed Cell Distribution Yjhnq4306-31-37 11:00:00* Test Item Value Reference Range Interpretation Comments Red Cell Distribution Width (test code = 40320-0) 12.9 11.7 -14.4 [facility] CenterPlatelet Tpazj1767-56-25 11:00:00* Test Item Value Reference Range Interpretation Comments Platelet Count (test code = 777-3) 192 140-360 [facility] CenterNeutrophils (%) (Auto)2017-11-07 11:00:00 * Test Item Value Reference Range Interpretation Comments Neutrophils (%) (Auto) (test code = 25220-1) 52.0 38.7-80.0 [facility] CenterLymphocytes (%) (Auto)2017-11-07 11:00:00 * Test Item Value Reference Range Interpretation Comments Lymphocytes (%) (Auto) (test code = 736-9) 37.3 18.0-39.1 [facility] CenterMonocytes (%) (Auto)2017-11-07 11:00:00* Test Item Value Reference Range Interpretation Comments Monocytes (%) (Auto) (test code = 5905-5) 8.0 4.4-11.3 [facility] CenterEosinophils (%) (Auto)2017-11-07 11:00:00 * Test Item Value Reference Range Interpretation Comments Eosinophils (%) (Auto) (test code = 713-8) 1.4 0.0-6.0 [facility] CenterBasophils (%) (Auto)2017-11-07 11:00:00* Test Item Value Reference Range Interpretation Comments Basophils (%) (Auto) (test code = 706-2) 0.9 0.0-1.0 [facility] CenterIM GRANULOCYTES %2017-11-07 11:00:00* Test Item Value Reference Range Interpretation Comments IM GRANULOCYTES % (test code = IM GRANULOCYTES %) 0.4 0.0- 1.0 [facility] CenterNeutrophils # (Auto)2017-11-07 11:00:00* Test Item Value Reference Range Interpretation Comments Neutrophils # (Auto) (test code = 751-8) 2.9 2.1-6.9 [facility] CenterLymphocytes # (Auto)2017-11-07 11:00:00* Test Item Value Reference Range Interpretation Comments Lymphocytes # (Auto) (test code = 95998-1) 2.1 1.0-3.2 [facility] CenterMonocytes # (Auto)2017-11-07 11:00:00* Test Item Value Reference Range Interpretation Comments Monocytes # (Auto) (test code = 742-7) 0.5 0.2-0.8 [facility] CenterEosinophils # (Auto)2017-11-07 11:00:00* Test Item Value Reference Range Interpretation Comments Eosinophils # (Auto) (test code = 711-2) 0.1 0.0-0.4 [facility] CenterBasophils # (Auto)2017-11-07 11:00:00* Test Item Value Reference Range Interpretation Comments Basophils # (Auto) (test code = 704-7) 0.1 0.0-0.1 [facility] CenterAbsolute Immature Granulocyte (auto 2017-11-07 11:00:00* Test Item Value Reference Range Interpretation Comments Absolute Immature Granulocyte (auto (jadiel t code = Absolute Immature Granulocyte (auto) 0.02 0-0.1 [facility] CenterWhite Blood Vekga0062-06-08 11:00:00* Test Item Value Reference Range Interpretation Comments White Blood Count (test code = 6690-2) 5.63 4.8-10.8 [facility] CenterRed Blood Nlfut3987-04-89 11:00:00* Test Item Value Reference Range Interpretation Comments Red Blood Count (test code = 789-8) 5.41 4.3-5.7 [facility] CenterHemoglobin2018-09-23 11:00:00* Test Item Value Reference Range Interpretation Comments Hemoglobin (test code = 11595-3) 16.1 14.0-18.0 [facility] CenterHematocrit2018-09-23 11:00:00* Test Item Value Reference Range Interpretation Comments Hematocrit (test code = 4544-3) 47.7 38.2-49.6 [facility] CenterMean Corpuscular Lqzcfb5202-10-30 11:00:00* Test Item Value Reference Range Interpretation Comments Mean Corpuscular Volume (test code = 787-2) 88.2 81-99 [facility] CenterMean Corpuscular Nqhwhvgikv3916-73-92 11:00:00* Test Item Value Reference Range Interpretation Comments Mean Corpuscular Hemoglobin (test code = 785-6) 29.8 28-32 [facility] CenterMean Corpuscular Hemoglobin Concent 2017-11-07 11:00:00* Test Item Value Reference Range Interpretation Comments Mean Corpuscular Hemoglobin Concent (test code = 786-4) 33.8 31-35 [facility] CenterRed Cell Distribution Yazef7097-74-09 11:00:00* Test Item Value Reference Range Interpretation Comments Red Cell Distribution Width (test code = 80079-9) 12.9 11.7 -14.4 [facility] CenterPlatelet Vbxyy1965-98-47 11:00:00* Test Item Value Reference Range Interpretation Comments Platelet Count (test code = 777-3) 192 140-360 [facility] CenterNeutrophils (%) (Auto)2017-11-07 11:00:00 * Test Item Value Reference Range Interpretation Comments Neutrophils (%) (Auto) (test code = 66437-6) 52.0 38.7-80.0 [facility] CenterLymphocytes (%) (Auto)2017-11-07 11:00:00 * Test Item Value Reference Range Interpretation Comments Lymphocytes (%) (Auto) (test code = 736-9) 37.3 18.0-39.1 [facility] CenterMonocytes (%) (Auto)2017-11-07 11:00:00* Test Item Value Reference Range Interpretation Comments Monocytes (%) (Auto) (test code = 5905-5) 8.0 4.4-11.3 [facility] CenterEosinophils (%) (Auto)2017-11-07 11:00:00 * Test Item Value Reference Range Interpretation Comments Eosinophils (%) (Auto) (test code = 713-8) 1.4 0.0-6.0 [facility] CenterBasophils (%) (Auto)2017-11-07 11:00:00* Test Item Value Reference Range Interpretation Comments Basophils (%) (Auto) (test code = 706-2) 0.9 0.0-1.0 [facility] CenterIM GRANULOCYTES %2017-11-07 11:00:00* Test Item Value Reference Range Interpretation Comments IM GRANULOCYTES % (test code = IM GRANULOCYTES %) 0.4 0.0- 1.0 [facility] CenterNeutrophils # (Auto)2017-11-07 11:00:00* Test Item Value Reference Range Interpretation Comments Neutrophils # (Auto) (test code = 751-8) 2.9 2.1-6.9 [facility] CenterLymphocytes # (Auto)2017-11-07 11:00:00* Test Item Value Reference Range Interpretation Comments Lymphocytes # (Auto) (test code = 79453-8) 2.1 1.0-3.2 [facility] CenterMonocytes # (Auto)2017-11-07 11:00:00* Test Item Value Reference Range Interpretation Comments Monocytes # (Auto) (test code = 742-7) 0.5 0.2-0.8 [facility] CenterEosinophils # (Auto)2017-11-07 11:00:00* Test Item Value Reference Range Interpretation Comments Eosinophils # (Auto) (test code = 711-2) 0.1 0.0-0.4 [facility] CenterBasophils # (Auto)2017-11-07 11:00:00* Test Item Value Reference Range Interpretation Comments Basophils # (Auto) (test code = 704-7) 0.1 0.0-0.1 [facility] CenterAbsolute Immature Granulocyte (auto 2017-11-07 11:00:00* Test Item Value Reference Range Interpretation Comments Absolute Immature Granulocyte (auto (jadiel t code = Absolute Immature Granulocyte (auto) 0.02 0-0.1 [facility] CenterCreatine Kinase FI0626-31-89 18:04:00* Test Item Value Reference Range Interpretation Comments Creatine Kinase MB (test code = 60384-5) 0.80 0-5.0 [facility] CenterTroponin J4963-79-00 18:04:00* Test Item Value Reference Range Interpretation Comments Troponin I (test code = JKI8085) -0.001 0-0.300 [facility] CenterCreatine Tweqdi4380-68-85 17:56:00* Test Item Value Reference Range Interpretation Comments Creatine Kinase (test code = 2157-6) 45 30-200 [facility] Mhmrv9473-71-27 16:23:00* Test Item Value Reference Range Interpretation Comments Sodium Level (test code = 2951-2) 142 136-145 [facility] CenterPotassium Gwowd6946-37-84 16:23:00* Test Item Value Reference Range Interpretation Comments Potassium Level (test code = 2823-3) 4.2 3.5-5.1 [facility] CenterChloride Kzbpe4717-84-16 16:23:00* Test Item Value Reference Range Interpretation Comments Chloride Level (test code = 2075-0) 104 98-107 [facility] CenterCarbon Dioxide Atpub5636-13-48 16:23:00* Test Item Value Reference Range Interpretation Comments Carbon Dioxide Level (test code = 2028-9) 27 -29 [facility] CenterAnion Wdh9019-39-57 16:23:00* Test Item Value Reference Range Interpretation Comments Anion Gap (test code = 42160-7) 15.2 8-16 [facility] CenterBlood Urea Rqsvpixe0188-37-54 16:23:00* Test Item Value Reference Range Interpretation Comments Blood Urea Nitrogen (test code = 3094-0) 12 7- [facility] CenterCreatinine2018-08-10 16:23:00* Test Item Value Reference Range Interpretation Comments Creatinine (test code = 2160-0) 0.99 0.72-1.25 [facility] CenterBUN/Creatinine Nuzvf1708-08-32 16:23:00* Test Item Value Reference Range Interpretation Comments BUN/Creatinine Ratio (test code = 3097-3) 12 08-09 [facility] CenterEstimat Glomerular Filtration Rate 2017-09-24 16:23:00* Test Item Value Reference Range Interpretation Comments Estimat Glomerular Filtration Rate (test code = 95518-6) 60- >60 Ranges were taken from the National Kidney Disease Education Program and the [facility] literature.Reference ranges:60 or greater: Vzlhlh26-76 ( for 3 consecutive months): Chronic kidney disease 15 or less: Kidney failurePerm[facility] Medical CenterGlucose Avqcz2018-69-65 16:23:00* Test Item Value Reference Range Interpretation Comments Glucose Level (test code = AYE6276) 107 74-118 [facility] CenterCalcium Zgpju9349-59-19 16:23:00* Test Item Value Reference Range Interpretation Comments Calcium Level (test code = 61863-4) 9.8 8.4-10.2 [facility] CenterTotal Khtqtgtzt0718-24-45 16:23:00* Test Item Value Reference Range Interpretation Comments Total Bilirubin (test code = 1975-2) 0.7 0.2-1.2 [facility] CenterAspartate Amino Transf (AST/SGOT) 2017-09-24 16:23:00* Test Item Value Reference Range Interpretation Comments Aspartate Amino Transf (AST/SGOT) (test code = Aspartate Amino Transf (AST/SGOT)) 17 5-34 [facility] CenterAlanine Aminotransferase (ALT/SGPT) 2017-09-24 16:23:00* Test Item Value Reference Range Interpretation Comments Alanine Aminotransferase (ALT/SGPT) (test code = 1742-6) 21 0-55 [facility] CenterTotal Jpighlm7559-43-29 16:23:00* Test Item Value Reference Range Interpretation Comments Total Protein (test code = 2885-2) 7.6 6.5-8.1 [facility] CenterAlbumin2018-08-10 16:23:00* Test Item Value Reference Range Interpretation Comments Albumin (test code = 1751-7) 4.3 3.5-5.0 [facility] CenterGlobulin2018-08-10 16:23:00* Test Item Value Reference Range Interpretation Comments Globulin (test code = 16526-7) 3.3 2.3-3.5 [facility] CenterAlbumin/Globulin Cfdzu9876-50-50 16:23:00 * Test Item Value Reference Range Interpretation Comments Albumin/Globulin Ratio (test code = 1759-0) 1.3 0.8-2.0 [facility] CenterAlkaline Hxlkxobgptq0424-80-60 16:23:00* Test Item Value Reference Range Interpretation Comments Alkaline Phosphatase (test code = 6768-6) 74 40-150 [facility] CenterAmylase Aoqll0294-03-05 16:23:00* Test Item Value Reference Range Interpretation Comments Amylase Level (test code = 1798-8) 51 25-125 [facility] CenterLipase2018-08-10 16:23:00* Test Item Value Reference Range Interpretation Comments Lipase (test code = 3040-3) 14 8-78 [facility] CenterWhite Blood Xeehs8530-86-41 16:04:00* Test Item Value Reference Range Interpretation Comments White Blood Count (test code = 6690-2) 9.19 4.8-10.8 [facility] CenterRed Blood Sxiqi5835-35-14 16:04:00* Test Item Value Reference Range Interpretation Comments Red Blood Count (test code = 789-8) 5.46 4.3-5.7 [facility] CenterHemoglobin2018-08-10 16:04:00* Test Item Value Reference Range Interpretation Comments Hemoglobin (test code = 22078-9) 16.5 14.0-18.0 [facility] CenterHematocrit2018-08-10 16:04:00* Test Item Value Reference Range Interpretation Comments Hematocrit (test code = 4544-3) 48.6 38.2-49.6 [facility] CenterMean Corpuscular Zmkxjl4621-91-79 16:04:00* Test Item Value Reference Range Interpretation Comments Mean Corpuscular Volume (test code = 787-2) 89.0 81-99 [facility] CenterMean Corpuscular Zahwdzpaou3905-50-77 16:04:00* Test Item Value Reference Range Interpretation Comments Mean Corpuscular Hemoglobin (test code = 785-6) 30.2 28-32 [facility] CenterMean Corpuscular Hemoglobin Concent 2017-09-24 16:04:00* Test Item Value Reference Range Interpretation Comments Mean Corpuscular Hemoglobin Concent (test code = 786-4) 34.0 31-35 [facility] CenterRed Cell Distribution Bwocs8062-17-43 16:04:00* Test Item Value Reference Range Interpretation Comments Red Cell Distribution Width (test code = 00755-4) 12.6 11.7 -14.4 [facility] CenterPlatelet Tbnyi0405-32-54 16:04:00* Test Item Value Reference Range Interpretation Comments Platelet Count (test code = 777-3) 213 140-360 [facility] CenterNeutrophils (%) (Auto)2017-09-24 16:04:00 * Test Item Value Reference Range Interpretation Comments Neutrophils (%) (Auto) (test code = 65268-2) 59.9 38.7-80.0 [facility] CenterLymphocytes (%) (Auto)2017-09-24 16:04:00 * Test Item Value Reference Range Interpretation Comments Lymphocytes (%) (Auto) (test code = 736-9) 31.7 18.0-39.1 [facility] CenterMonocytes (%) (Auto)2017-09-24 16:04:00* Test Item Value Reference Range Interpretation Comments Monocytes (%) (Auto) (test code = 5905-5) 5.7 4.4-11.3 [facility] CenterEosinophils (%) (Auto)2017-09-24 16:04:00 * Test Item Value Reference Range Interpretation Comments Eosinophils (%) (Auto) (test code = 713-8) 1.6 0.0-6.0 [facility] CenterBasophils (%) (Auto)2017-09-24 16:04:00* Test Item Value Reference Range Interpretation Comments Basophils (%) (Auto) (test code = 706-2) 0.8 0.0-1.0 [facility] CenterIM GRANULOCYTES %2017-09-24 16:04:00* Test Item Value Reference Range Interpretation Comments IM GRANULOCYTES % (test code = IM GRANULOCYTES %) 0.3 0.0- 1.0 [facility] CenterNeutrophils # (Auto)2017-09-24 16:04:00* Test Item Value Reference Range Interpretation Comments Neutrophils # (Auto) (test code = 751-8) 5.5 2.1-6.9 [facility] CenterLymphocytes # (Auto)2017-09-24 16:04:00* Test Item Value Reference Range Interpretation Comments Lymphocytes # (Auto) (test code = 03363-7) 2.9 1.0-3.2 [facility] CenterMonocytes # (Auto)2017-09-24 16:04:00* Test Item Value Reference Range Interpretation Comments Monocytes # (Auto) (test code = 742-7) 0.5 0.2-0.8 [facility] CenterEosinophils # (Auto)2017-09-24 16:04:00* Test Item Value Reference Range Interpretation Comments Eosinophils # (Auto) (test code = 711-2) 0.2 0.0-0.4 [facility] CenterBasophils # (Auto)2017-09-24 16:04:00* Test Item Value Reference Range Interpretation Comments Basophils # (Auto) (test code = 704-7) 0.1 0.0-0.1 [facility] CenterAbsolute Immature Granulocyte (auto 2017-09-24 16:04:00* Test Item Value Reference Range Interpretation Comments Absolute Immature Granulocyte (auto (jadiel t code = Absolute Immature Granulocyte (auto) 0.03 0-0.1 [facility] CenterCHEST SINGLE (NOT PORTABLE)2017-09-24 15:05:00 [facility] [address] [place] [address] Patient Name: ÁNGEL EMMANUEL MR #: [id number] : 1955 Age/Sex: 62/M Req #: [id number] Adm Physician: Ordered by: NICK DIAZ MD Report #: [id number] Location: ER Room/Bed: Procedure: [id number] DX/CHEST SINGLE (NOT BOOKER BLE) Exam Date: 09/24/17 Exam Time: 1430 REPOR T STATUS: Signed EXAMINATION: CHEST SINGLE (NOT PORTABLE) INDICATIO N: COMPARISON: Chest radiograph 04/29/2017 and 09/03/2015 FINDINGS: AP view TUBES and LINES: None. LUNGS: Lungs are moderately inflated. Mild bibasilar atelectasis. There is no evidence of p neumonia or pulmonary edema. PLEURA: No pleural effusion or pneumothorax. HEART AND MEDIASTINUM: The cardiomediastinal silhouette is unremarkable. BONES AND SOFT TISSUES: No acute osseous lesion. Soft tissues are un remarkable. UPPER ABDOMEN: No free air under the diaphragm. IMPRES ULI: No acute thoracic abnormality. Signed by: DR. Marlo Jefferson MD on 09/24/2017 3:07 PM Dictated By: MARLO JEFFERSON MD [id number] Transcribed By: ROLAND on 09/24/17 1507 COPY TO: NICK DIAZ MD Urine Opiates Snfwad5510-05-81 14:58:00* Test Item Value Reference Range Interpretation Comments Urine Opiates Screen (test code = 55419-4) NEGATIVE NEGATIVE [facility] CenterUrine Barbiturates Ndbsoi6107-40-91 14:58:00* Test Item Value Reference Range Interpretation Comments Urine Barbiturates Screen (test code = 731692608) NEGATIVE NEGA TIVE [facility] CenterUrine Phencyclidine Vzehxd6049-64-98 14:58:00* Test Item Value Reference Range Interpretation Comments Urine Phencyclidine Screen (test code = 72850-5) NEGATIVE NEGAT SANTIAGO [facility] CenterUrine Amphetamines Siwomx3337-36-81 14:58:00* Test Item Value Reference Range Interpretation Comments Urine Amphetamines Screen (test code = 66199-0) NEGATIVE NEGATI VE [facility] CenterUrine Methamphetamines Kejfjc9801-17-85 14:58:00* Test Item Value Reference Range Interpretation Comments Urine Methamphetamines Screen (test code = Urine Metha mphetamines Screen) NEGATIVE NEGATIVE [facility] CenterUrine Benzodiazepines Arqeik3032-10-80 14:58:00* Test Item Value Reference Range Interpretation Comments Urine Benzodiazepines Screen (test code = 23121-3) NEGATIVE NEG ATIVE [facility] CenterUrine Cocaine Gqsgtn5366-59-16 14:58:00* Test Item Value Reference Range Interpretation Comments Urine Cocaine Screen (test code = 3398-5) NEGATIVE NEGATIVE [facility] CenterUrine Cannabinoids Mnjpbu6485-40-57 14:58:00* Test Item Value Reference Range Interpretation Comments Urine Cannabinoids Screen (test code = 15010-4) NEGATIVE NEGATI VE THESE RESULTS ARE FOR MEDICAL TREATMENT ONLYTHIS REPORT CONTAINS UNCONFIR MED SCREENING RESULTS*POSITIVE RESULTS WILL BE CONFIRMED BY REFERENCE LAB UPON R EQUEST CUT-OFFDRUG CLASS CONCENTRATION ng/mLAmphetamines 1000Methamphetamines 1000Cocaine 300Opiate 300Phencyc lidine 25Cannabinoid 50Barbiturates 300Benzodiazepine 300Methadone 300[facility] Opiates Idqgzi5017-81-69 14:58:00* Test Item Value Reference Range Interpretation Comments Urine Opiates Screen (test code = 39952-6) NEGATIVE NEGATIVE [facility] CenterUrine Barbiturates Mjukgz9458-10-93 14:58:00* Test Item Value Reference Range Interpretation Comments Urine Barbiturates Screen (test code = 346542166) NEGATIVE NEGA TIVE [facility] CenterUrine Phencyclidine Daeeea1534-89-42 14:58:00* Test Item Value Reference Range Interpretation Comments Urine Phencyclidine Screen (test code = 03444-5) NEGATIVE NEGAT SANTIAGO [facility] CenterUrine Amphetamines Mqsxvt8645-16-11 14:58:00* Test Item Value Reference Range Interpretation Comments Urine Amphetamines Screen (test code = 16823-3) NEGATIVE NEGATI VE [facility] CenterUrine Methamphetamines Ygnvst2110-60-56 14:58:00* Test Item Value Reference Range Interpretation Comments Urine Methamphetamines Screen (test code = Urine Metha mphetamines Screen) NEGATIVE NEGATIVE [facility] CenterUrine Benzodiazepines Lsirrz9962-84-24 14:58:00* Test Item Value Reference Range Interpretation Comments Urine Benzodiazepines Screen (test code = 78052-7) NEGATIVE NEG ATIVE [facility] CenterUrine Cocaine Uzfmnn9667-91-39 14:58:00* Test Item Value Reference Range Interpretation Comments Urine Cocaine Screen (test code = 3398-5) NEGATIVE NEGATIVE [facility] CenterUrine Cannabinoids Fbrkml6307-93-79 14:58:00* Test Item Value Reference Range Interpretation Comments Urine Cannabinoids Screen (test code = 12081-0) NEGATIVE NEGATI VE THESE RESULTS ARE FOR MEDICAL TREATMENT ONLYTHIS REPORT CONTAINS UNCONFIR MED SCREENING RESULTS*POSITIVE RESULTS WILL BE CONFIRMED BY REFERENCE LAB UPON R EQUEST CUT-OFFDRUG CLASS CONCENTRATION ng/mLAmphetamines 1000Methamphetamines 1000Cocaine 300Opiate 300Phencyc lidine 25Cannabinoid 50Barbiturates 300Benzodiazepine 300Methadone 300[facility] IrvingUrine Opiates Mjmkmu2444-46-10 14:58:00* Test Item Value Reference Range Interpretation Comments Urine Opiates Screen (test code = 73634-0) NEGATIVE NEGATIVE [facility] CenterUrine Barbiturates Nlkfam3029-71-66 14:58:00* Test Item Value Reference Range Interpretation Comments Urine Barbiturates Screen (test code = 884258874) NEGATIVE NEGA TIVE [facility] CenterUrine Phencyclidine Dvwwku5291-04-28 14:58:00* Test Item Value Reference Range Interpretation Comments Urine Phencyclidine Screen (test code = 28843-1) NEGATIVE NEGAT SANTIAGO [facility] CenterUrine Amphetamines Pknktu4068-68-43 14:58:00* Test Item Value Reference Range Interpretation Comments Urine Amphetamines Screen (test code = 09986-9) NEGATIVE NEGATI VE [facility] CenterUrine Methamphetamines Tlleyo5424-85-16 14:58:00* Test Item Value Reference Range Interpretation Comments Urine Methamphetamines Screen (test code = Urine Metha mphetamines Screen) NEGATIVE NEGATIVE [facility] CenterUrine Benzodiazepines Wjtqfv9948-69-90 14:58:00* Test Item Value Reference Range Interpretation Comments Urine Benzodiazepines Screen (test code = 89119-8) NEGATIVE NEG ATIVE [facility] CenterUrine Cocaine Ojurra3711-75-74 14:58:00* Test Item Value Reference Range Interpretation Comments Urine Cocaine Screen (test code = 3398-5) NEGATIVE NEGATIVE [facility] CenterUrine Cannabinoids Sihddk6168-73-53 14:58:00* Test Item Value Reference Range Interpretation Comments Urine Cannabinoids Screen (test code = 78199-8) NEGATIVE NEGATI VE THESE RESULTS ARE FOR MEDICAL TREATMENT ONLYTHIS REPORT CONTAINS UNCONFIR MED SCREENING RESULTS*POSITIVE RESULTS WILL BE CONFIRMED BY REFERENCE LAB UPON R EQUEST CUT-OFFDRUG CLASS CONCENTRATION ng/mLAmphetamines 1000Methamphetamines 1000Cocaine 300Opiate 300Phencyc lidine 25Cannabinoid 50Barbiturates 300Benzodiazepine 300Methadone 300[facility]rine Opiates Wnhaly3083-94-59 14:58:00* Test Item Value Reference Range Interpretation Comments Urine Opiates Screen (test code = 03484-0) NEGATIVE NEGATIVE [facility] CenterUrine Barbiturates Gfacht2996-61-25 14:58:00* Test Item Value Reference Range Interpretation Comments Urine Barbiturates Screen (test code = 944429730) NEGATIVE NEGA TIVE [facility] CenterUrine Phencyclidine Oqnqqv2391-84-49 14:58:00* Test Item Value Reference Range Interpretation Comments Urine Phencyclidine Screen (test code = 67144-6) NEGATIVE NEGAT SANTIAGO [facility] CenterUrine Amphetamines Ylaidj8127-79-41 14:58:00* Test Item Value Reference Range Interpretation Comments Urine Amphetamines Screen (test code = 18445-0) NEGATIVE NEGATI VE [facility] CenterUrine Methamphetamines Bcjsrr1747-12-21 14:58:00* Test Item Value Reference Range Interpretation Comments Urine Methamphetamines Screen (test code = Urine Metha mphetamines Screen) NEGATIVE NEGATIVE [facility] CenterUrine Benzodiazepines Yjvowd4294-15-06 14:58:00* Test Item Value Reference Range Interpretation Comments Urine Benzodiazepines Screen (test code = 72016-0) NEGATIVE NEG ATIVE [facility] CenterUrine Cocaine Smtknv0804-70-74 14:58:00* Test Item Value Reference Range Interpretation Comments Urine Cocaine Screen (test code = 3398-5) NEGATIVE NEGATIVE [facility] CenterUrine Cannabinoids Lqppkr1952-70-13 14:58:00* Test Item Value Reference Range Interpretation Comments Urine Cannabinoids Screen (test code = 38536-2) NEGATIVE NEGATI VE THESE RESULTS ARE FOR MEDICAL TREATMENT ONLYTHIS REPORT CONTAINS UNCONFIR MED SCREENING RESULTS*POSITIVE RESULTS WILL BE CONFIRMED BY REFERENCE LAB UPON R EQUEST CUT-OFFDRUG CLASS CONCENTRATION ng/mLAmphetamines 1000Methamphetamines 1000Cocaine 300Opiate 300Phencyc lidine 25Cannabinoid 50Barbiturates 300Benzodiazepine 300Methadone 300[facility] IrvingB-Type Natriuretic Rwttfjw3488-53-33 17:15:00* Test Item Value Reference Range Interpretation Comments B-Type Natriuretic Peptide (test code = 75162-0) 12.1 0-100 [facility] CenterB-Type Natriuretic Vbbajhi8957-97-83 17:15:00* Test Item Value Reference Range Interpretation Comments B-Type Natriuretic Peptide (test code = 30327-6) 12.1 0-100 [facility] CenterCreatine Kinase VL2543-97-07 17:14:00* Test Item Value Reference Range Interpretation Comments Creatine Kinase MB (test code = 82397-9) 1.20 0-5.0 [facility] CenterTroponin X7942-79-11 17:14:00* Test Item Value Reference Range Interpretation Comments Troponin I (test code = KJC5336) -0.001 0-0.300 [facility] Xbjwx7319-00-20 17:09:00* Test Item Value Reference Range Interpretation Comments Sodium Level (test code = 2951-2) 140 136-145 [facility] CenterPotassium Gbdzm8876-45-05 17:09:00* Test Item Value Reference Range Interpretation Comments Potassium Level (test code = 2823-3) 4.2 3.5-5.1 [facility] CenterChloride Guogg6361-33-38 17:09:00* Test Item Value Reference Range Interpretation Comments Chloride Level (test code = 2075-0) 102 98-107 [facility] CenterCarbon Dioxide Ekbsd5901-25-10 17:09:00* Test Item Value Reference Range Interpretation Comments Carbon Dioxide Level (test code = 2028-9) 30 22-29 H [facility] CenterAnion Wln7332-43-05 17:09:00* Test Item Value Reference Range Interpretation Comments Anion Gap (test code = 97114-6) 12.2 8-16 [facility] CenterBlood Urea Cezlbpvq2045-31-16 17:09:00* Test Item Value Reference Range Interpretation Comments Blood Urea Nitrogen (test code = 3094-0) 25 7-26 [facility] CenterCreatinine2018-03-15 17:09:00* Test Item Value Reference Range Interpretation Comments Creatinine (test code = 2160-0) 1.02 0.72-1.25 [facility] CenterBUN/Creatinine Bxxgy7809-14-44 17:09:00* Test Item Value Reference Range Interpretation Comments BUN/Creatinine Ratio (test code = 3097-3) 25 6-25 [facility] CenterEstimat Glomerular Filtration Rate 2017-04-29 17:09:00* Test Item Value Reference Range Interpretation Comments Estimat Glomerular Filtration Rate (test code = 00651-5) 60- >60 Ranges were taken from the National Kidney Disease Education Program and the [facility] Kidney Foundation literature.Reference ranges:60 or greater: Rptuat59-61 ( for 3 consecutive months): Chronic kidney disease 15 or less: Kidney failurePermian Regional Medical CenterGlucose Lwpmx7677-54-90 17:09:00* Test Item Value Reference Range Interpretation Comments Glucose Level (test code = DYM1175) 118 74-118 [facility] CenterCalcium Ohnxg7979-63-47 17:09:00* Test Item Value Reference Range Interpretation Comments Calcium Level (test code = 47233-0) 9.0 8.4-10.2 [facility] CenterTotal Zhlppgrty2217-05-52 17:09:00* Test Item Value Reference Range Interpretation Comments Total Bilirubin (test code = 1975-2) 0.8 0.2-1.2 [facility] CenterAspartate Amino Transf (AST/SGOT) 2017-04-29 17:09:00* Test Item Value Reference Range Interpretation Comments Aspartate Amino Transf (AST/SGOT) (test code = Aspartate Amino Transf (AST/SGOT)) 19 5-34 [facility] CenterAlanine Aminotransferase (ALT/SGPT) 2017-04-29 17:09:00* Test Item Value Reference Range Interpretation Comments Alanine Aminotransferase (ALT/SGPT) (test code = 1742-6) 23 0-55 [facility] CenterTotal Qqzclia7736-02-59 17:09:00* Test Item Value Reference Range Interpretation Comments Total Protein (test code = 2885-2) 7.6 6.5-8.1 [facility] CenterAlbumin2018-03-15 17:09:00* Test Item Value Reference Range Interpretation Comments Albumin (test code = 1751-7) 4.5 3.5-5.0 [facility] CenterGlobulin2018-03-15 17:09:00* Test Item Value Reference Range Interpretation Comments Globulin (test code = 34576-0) 3.1 2.3-3.5 [facility] CenterAlbumin/Globulin Leyva7409-24-27 17:09:00 * Test Item Value Reference Range Interpretation Comments Albumin/Globulin Ratio (test code = 1759-0) 1.5 0.8-2.0 [facility] CenterAlkaline Tnjicndnube9342-23-61 17:09:00* Test Item Value Reference Range Interpretation Comments Alkaline Phosphatase (test code = 6768-6) 82 40-150 [facility] CenterCreatine Ynihcz8975-05-33 17:09:00* Test Item Value Reference Range Interpretation Comments Creatine Kinase (test code = 2157-6) 40 30-200 [facility] CenterUrine RPI9296-29-00 17:05:00* Test Item Value Reference Range Interpretation Comments Urine WBC (test code = 5821-4) NONE 0-5 [facility] CenterUrine RQN5496-47-79 17:05:00* Test Item Value Reference Range Interpretation Comments Urine RBC (test code = 59916-0) NONE 0-5 [facility] CenterUrine Rilqznda6072-67-47 17:05:00* Test Item Value Reference Range Interpretation Comments Urine Bacteria (test code = 13142-1) NONE NONE [facility] CenterUrine Epithelial Zsgmo7920-43-76 17:05:00 * Test Item Value Reference Range Interpretation Comments Urine Epithelial Cells (test code = 34363-5) NONE NONE [facility] CenterUrine PIW6051-21-48 17:05:00* Test Item Value Reference Range Interpretation Comments Urine WBC (test code = 5821-4) NONE 0-5 [facility] CenterUrine PCJ1286-02-23 17:05:00* Test Item Value Reference Range Interpretation Comments Urine RBC (test code = 25171-6) NONE 0-5 [facility] CenterUrine Pzqivmfj2999-54-17 17:05:00* Test Item Value Reference Range Interpretation Comments Urine Bacteria (test code = 82932-8) NONE NONE [facility] CenterUrine Epithelial Googf9622-91-21 17:05:00 * Test Item Value Reference Range Interpretation Comments Urine Epithelial Cells (test code = 96509-8) NONE NONE [facility] CenterUrine Bvuqf2993-89-74 16:52:00* Test Item Value Reference Range Interpretation Comments Urine Color (test code = 5778-6) YELLOW YELLOW [facility] CenterUrine Vuxqsih7947-36-71 16:52:00* Test Item Value Reference Range Interpretation Comments Urine Clarity (test code = 67880-1) CLEAR CLEAR [facility] Specific Avtcxck2005-99-26 16:52:00 * Test Item Value Reference Range Interpretation Comments Urine Specific [place] (test code = 5811-5) 1.015 1.010-1.02 5 [facility] [id number] 16:52:00* Test Item Value Reference Range Interpretation Comments Urine pH (test code = 85059-2) 6 5-7 [facility] Leukocyte Mxygidpp4296-38-87 16:52:00* Test Item Value Reference Range Interpretation Comments Urine Leukocyte Esterase (test code = 5799-2) NEGATIVE NEGATIVE [facility] Wzhxaoc5315-46-88 16:52:00* Test Item Value Reference Range Interpretation Comments Urine Nitrite (test code = 13112-2) NEGATIVE NEGATIVE [facility] Xjlrutg7443-53-79 16:52:00* Test Item Value Reference Range Interpretation Comments Urine Protein (test code = 5804-0) NEGATIVE NEGATIVE [facility] Glucose (UA)2017-04-29 16:52:00* Test Item Value Reference Range Interpretation Comments Urine Glucose (UA) (test code = 2349-9) TRACE NEGATIVE H [facility] Tdvhuqr0869-62-12 16:52:00* Test Item Value Reference Range Interpretation Comments Urine Ketones (test code = 94714-4) NEGATIVE NEGATIVE [facility] Ilqiqjhswasq6783-88-62 16:52:00* Test Item Value Reference Range Interpretation Comments Urine Urobilinogen (test code = 28586-3) 0.2 0.2-1 [facility] Ebmhrlzla7725-66-81 16:52:00* Test Item Value Reference Range Interpretation Comments Urine Bilirubin (test code = 1978-6) NEGATIVE NEGATIVE [facility] Gcybt3466-89-40 16:52:00* Test Item Value Reference Range Interpretation Comments Urine Blood (test code = 23736-8) NEGATIVE NEGATIVE [facility] Lrqlt3340-04-97 16:52:00* Test Item Value Reference Range Interpretation Comments Urine Color (test code = 5778-6) YELLOW YELLOW [facility] Coyhlxc0785-16-27 16:52:00* Test Item Value Reference Range Interpretation Comments Urine Clarity (test code = 75387-7) CLEAR CLEAR [facility] Specific Jdbisaz1546-42-34 16:52:00 * Test Item Value Reference Range Interpretation Comments Urine Specific [place] (test code = 5811-5) 1.015 1.010-1.02 5 [facility] [id number] 16:52:00* Test Item Value Reference Range Interpretation Comments Urine pH (test code = 83587-9) 6 5-7 [facility] Leukocyte Dhlibpnb5888-39-49 16:52:00* Test Item Value Reference Range Interpretation Comments Urine Leukocyte Esterase (test code = 5799-2) NEGATIVE NEGATIVE [facility] Wdjxiqn0750-14-26 16:52:00* Test Item Value Reference Range Interpretation Comments Urine Nitrite (test code = 23578-7) NEGATIVE NEGATIVE [facility] Grunkml7107-65-39 16:52:00* Test Item Value Reference Range Interpretation Comments Urine Protein (test code = 5804-0) NEGATIVE NEGATIVE [facility] Glucose (UA)2017-04-29 16:52:00* Test Item Value Reference Range Interpretation Comments Urine Glucose (UA) (test code = 2349-9) TRACE NEGATIVE H [facility] Bgsysaf3228-36-65 16:52:00* Test Item Value Reference Range Interpretation Comments Urine Ketones (test code = 90029-8) NEGATIVE NEGATIVE [facility] Moslffcllbcn6274-90-86 16:52:00* Test Item Value Reference Range Interpretation Comments Urine Urobilinogen (test code = 51378-0) 0.2 0.2-1 [facility] Araqkmouy5362-25-29 16:52:00* Test Item Value Reference Range Interpretation Comments Urine Bilirubin (test code = 1978-6) NEGATIVE NEGATIVE [facility] Xnseh2686-11-56 16:52:00* Test Item Value Reference Range Interpretation Comments Urine Blood (test code = 72890-6) NEGATIVE NEGATIVE [facility] Center[facility] Blood Etmnv3721-78-64 16:50:00* Test Item Value Reference Range Interpretation Comments White Blood Count (test code = 6690-2) 8.64 4.8-10.8 [facility] Tgalm3482-81-13 16:50:00* Test Item Value Reference Range Interpretation Comments Red Blood Count (test code = 789-8) 5.91 4.3-5.7 H [facility] CenterHemoglobin2018-03-15 16:50:00* Test Item Value Reference Range Interpretation Comments Hemoglobin (test code = 79481-1) 17.4 14.0-18.0 [facility]ematocrit2018-03-15 16:50:00* Test Item Value Reference Range Interpretation Comments Hematocrit (test code = 4544-3) 50.7 38.2-49.6 H [facility] CenterMean Corpuscular Tgebsf6265-38-55 16:50:00* Test Item Value Reference Range Interpretation Comments Mean Corpuscular Volume (test code = 787-2) 85.8 81-99 [facility] Corpuscular Cmdatusqbo1619-14-36 16:50:00* Test Item Value Reference Range Interpretation Comments Mean Corpuscular Hemoglobin (test code = 785-6) 29.4 28-32 [facility] CenterMean Corpuscular Hemoglobin Concent 2017-04-29 16:50:00* Test Item Value Reference Range Interpretation Comments Mean Corpuscular Hemoglobin Concent (test code = 786-4) 34.3 31-35 [facility] Center[facility] Cell Distribution Wtnvn6661-02-56 16:50:00* Test Item Value Reference Range Interpretation Comments Red Cell Distribution Width (test code = 04328-5) 12.3 11.7 -14.4 [facility] CenterPlatelet Meqgy9300-19-39 16:50:00* Test Item Value Reference Range Interpretation Comments Platelet Count (test code = 777-3) 234 140-360 [facility] CenterNeutrophils (%) (Auto)2017-04-29 16:50:00 * Test Item Value Reference Range Interpretation Comments Neutrophils (%) (Auto) (test code = 47430-2) 65.3 38.7-80.0 [facility] CenterLymphocytes (%) (Auto)2017-04-29 16:50:00 * Test Item Value Reference Range Interpretation Comments Lymphocytes (%) (Auto) (test code = 736-9) 26.6 18.0-39.1 [facility] Center[facility] (%) (Auto)2017-04-29 16:50:00* Test Item Value Reference Range Interpretation Comments Monocytes (%) (Auto) (test code = 5905-5) 5.9 4.4-11.3 [facility] CenterEosinophils (%) (Auto)2017-04-29 16:50:00 * Test Item Value Reference Range Interpretation Comments Eosinophils (%) (Auto) (test code = 713-8) 0.8 0.0-6.0 [facility] Center[facility] (%) (Auto)2017-04-29 16:50:00* Test Item Value Reference Range Interpretation Comments Basophils (%) (Auto) (test code = 706-2) 0.9 0.0-1.0 [facility] CenterIM GRANULOCYTES %2017-04-29 16:50:00* Test Item Value Reference Range Interpretation Comments IM GRANULOCYTES % (test code = IM GRANULOCYTES %) 0.5 0.0- 1.0 [facility] CenterNeutrophils # (Auto)2017-04-29 16:50:00* Test Item Value Reference Range Interpretation Comments Neutrophils # (Auto) (test code = 751-8) 5.6 2.1-6.9 [facility] CenterLymphocytes # (Auto)2017-04-29 16:50:00* Test Item Value Reference Range Interpretation Comments Lymphocytes # (Auto) (test code = 73159-0) 2.3 1.0-3.2 [facility] CenterMonocytes # (Auto)2017-04-29 16:50:00* Test Item Value Reference Range Interpretation Comments Monocytes # (Auto) (test code = 742-7) 0.5 0.2-0.8 [facility] CenterEosinophils # (Auto)2017-04-29 16:50:00* Test Item Value Reference Range Interpretation Comments Eosinophils # (Auto) (test code = 711-2) 0.1 0.0-0.4 [facility] CenterBas[facility] # (Auto)2017-04-29 16:50:00* Test Item Value Reference Range Interpretation Comments Basophils # (Auto) (test code = 704-7) 0.1 0.0-0.1 [facility] CenterAbsolute Immature Granulocyte (auto 2017-04-29 16:50:00* Test Item Value Reference Range Interpretation Comments Absolute Immature Granulocyte (auto (jadiel t code = Absolute Immature Granulocyte (auto) 0.04 0-0.1 [facility] CenterCHES [facility]INGLE ([facility]ABLE) [place] [address] Patient Name: ÁNGEL EMMANUEL MR #: [id number] : 1955 Age/Sex: 61/M Req #: [id number] Adm Physician: Ordered by: QUIN BAUGH VERIFICATION REP Report #: [id number] Location: ER Room/Bed: Procedure: [id number] DX/CHEST SINGLE (PORTABLE) Exam Date: 04/29/17 Exam Time: 1643 REPORT STAT US: Signed PROCEDURE: CHEST SINGLE (PORTABLE) COMPARISON: [facility], , CHEST SINGLE (PORTABLE), 09/03/2015, 12:40. INDICATIONS: DIZZINE SS FINDINGS: LUNGS: No consolidations or edema. PLEURA: N o effusions or pneumothorax. HEART T MEDIASTINUM: The heart is within normal size-limits. BONES T SOFT TISSUES: No acute findings. CONCLUSION: No acute thoracic abnormality. Ashok Horta D.O. Dictated by: Ashok Horta D.O. on 04/29/2017 at 17:14 Electro nically approved by: Ashok Horta D.O. on 04/29/2017 at 17:14 Dictated By: ASHOK HORTA DO 13 COPY TO: EDGARD BAUGH VERIFICATION REP CT BRAIN [place] [address] Patient Name: ÁNGEL EMMANUEL MR #: [id number] : 1955 Age/Sex: 61/M Req #: [id number] Adm Physician: Ordered by: QUIN BAUGH VERIFICATION REP Report #: [id number] Location: ER Room/Bed: Procedure: [id number] CT/CT BRAIN WO Exam Date: 0 04/29/17 Exam Time: 1555 REPORT STATUS: Signed Exam: Head CT without contrast History: Dizziness, headache Comparison st udies: Head CT 12/03/2016 and 08/17/2015. Technique: Axial images were obt ained from the skull base to the vertex. Coronal and sagittal images reconstru cted from the axial data. Intravenous contrast: None Findings: Scalp : No abnormalities. Bones: No fractures, blastic or lytic lesions. Brain sulci: Appropriate for age. Ventricles: Normal in size and configuration. No h ydrocephalus. Extra-axial spaces: No masses, no fluid collection. Parenc hyma: No abnormal densities. No masses, hemorrhage, acute or chronic vascu lar insults. Sellar/suprasellar region: No abnormalities. Craniocervical junction: Patent foramen magnum. No Chiari one malformation. Incidental fin dings: Atherosclerotic calcifications in the carotid siphons. IMPRESSIO N: 1. No acute intracranial abnormalities. 2. No changes from the prev ious head CT of 12/03/2016. Signed by: Dr. Amarjit Carranza M.D. on 04/29/2017 4:46 PM Dictated By: AMARJIT CARRANZA MD Transcribed By: ROLAND on 04/29/176 C OPY TO: QUIN BAUGH VERIFICATION REP CT BRAIN WO [place] [address] Patient Name: ÁNGEL EMMANUEL MR #: [id number] : 1955 Age/Sex: 61/M Req #: [id number] Adm Physician: Ordered by: ANNAMARIE CHEW MD Report #: [id number] Location: ER Room/Bed: Procedure: [id number] CT/CT BRAIN WO Exam Da te: 12/03/16 Exam Time: 0540 REPORT STATUS: Sig homer EXAMINATION: Head CT without contrast. HISTORY:Dizziness. COMPARISON:CT brain from 08/17/2015. TECHNIQUE: Multidetector axial images were obtained from the foramen magnum to the vertex without contrast. The images we re reconstructed using brain and bone algorithms. Thin section brain images w ere reformatted into coronal and sagittal planes. Intravenous contrast: No ne IMAGE QUALITY: Acceptable. FINDINGS: Skull/scalp: No abnorm ality. Parenchyma: No abnormal density. No acute hemorrhage, mass or acu te major vascular territorial infarct. Arteries: No density suggestive of thrombosis. Dural sinuses: No abnormal density suggestive of thrombosis . Ventricles: No hydrocephalus or displacement. Extra-axial spaces: No abnormal density. Brain volume: Mild generalized cerebral volume los s. Craniocervical junction: No mass, Chiari malformation, or basilar inv agination. Sella: No mass. Paranasal/mastoid sinuses: Imaged portio ns unremarkable. IMPRESSION: No acute intracranial abnormality. No ferro ge since CT head from 08/17/2015. Signed by: Dr. Sabine Catsillo M.D. on 6:06 AM Dictated By: SABINE CASTILLO MD 5 Transcribed By: ROLAND on 12/03/16605 COPY TO: ANNAMARIE CHEW MD
[2019-10-20 15:26] LABS: BILIRUBIN,URINE NEGATIVE (NEGATIVE); CLARITY,URINE CLEAR (CLEAR); COLOR,URINE YELLOW (YELLOW); KETONES,URINE NEGATIVE (NEGATIVE); LEUKOCYTE ESTERASE ,URINE NEGATIVE (NEGATIVE); NITRITE,URINE NEGATIVE (NEGATIVE); PROTEIN,URINE DIPSTICK NEGATIVE (NEGATIVE); URINE UROBILINOGEN 0.2 mg/dL (0.2 - 1)
[2019-10-20 15:39] LABS: BACTERIA,URINE RARE /HPF
--- NOTE | 2019-10-20 16:52 | Emergency Department Note ---
History of Present Illnes History of Present Illness Chief Complaint: General Medicine Complaints History of Present Illness This is a 64 year old male Patient in from home with complaints of dizziness when standing and walking and feels like he is going to fall. Patient feels fine when sitting. Patient states that he has had similar symptoms before but not this bad. Patient denies changes to his medications. Patient also reports headache, blurred vision and ringing in his ears. Area Field Manager Required: No Onset (how long ago): day(s) (TODAY) Radiation: Reports non-radiation Severity: mild Onset quality: gradual Timing of current episode: intermittent Progression: waxing and waning Relieving factors: rest Exacerbating factors: other (STANDING) Associated symptoms: Reports denies other symptoms Treatments prior to arrival: none Past Medical/Family History Physician Review I have reviewed the patient's past medical and family history. Any updates have been documented here. Past Medical History Past Medical History: Hypertension Other Medical History: sarcoidosis ex-smoker quit 7 yrs ago was o2 dependant but quit smoking CERVICAL RADICULOPATHY Past Surgical History: Appendectomy Social History Smoking Cessation: Never Smoker Counseling Performed: No Alcohol Use: None Any Illegal Drug Use: No TB Exposure/Symptoms: No Physically hurt or threatened: No Family History Family history of heart diseas: No Other Last Tetanus: UTD Any Pre-Existing Lines (PICC,: No Review of Systems Review of Systems Constitutional: Reports no symptoms EENTM: Reports no symptoms Cardiovascular: Reports no symptoms Respiratory: Reports no symptoms Gastrointestinal: Reports no symptoms Genitourinary: Reports no symptoms Musculoskeletal: Reports no symptoms Integumentary: Reports no symptoms Neurological: Reports as per HPI Psychological: Reports no symptoms Endocrine: Reports no symptoms Hematological/Lymphatic: Reports no symptoms Physical Exam Related Data Allergies: Coded Allergies: penicillin (Verified Allergy, Unknown, 08/06/18) Triage Vital Signs Vital Signs Date Time Temp Pulse Resp B/P (MAP) Pulse Ox O2 Delivery O2 Flow Rate FiO2 10/20/19 13:11 98.7 88 17 111/72 100 Room Air 10/20/19 13:13 2.0 Vital signs reviewed: Yes Physical Exam CONSTITUTIONAL Constitutional: Present well-developed, Present well-nourished HENT HENT: Present normocephalic, Present atraumatic, Present oropharynx clear/moist, Present nose normal HENT L/R: Present left ext ear normal, Present right ext ear normal EYES Eyes: Reports PERRL, Reports conjunctivae normal NECK Neck: Present ROM normal PULMONARY Pulmonary: Present effort normal, Present breath sounds normal CARDIOVASCULAR Cardiovascular: Present regular rhythm, Present heart sounds normal, Present capillary refill normal, Present normal rate GASTROINTESTINAL Abdominal: Present soft, Present nontender, Present bowel sounds normal GENITOURINARY Genitourinary: Present exam deferred SKIN Skin: Present warm, Present dry MUSCULOSKELETAL Musculoskeletal: Present ROM normal NEUROLOGICAL Neurological: Present alert, Present oriented x 3, Present no gross motor or sensory deficits PSYCHOLOGICAL Psychological: Present mood/affect normal, Present judgement normal Results Laboratory Result Diagram: 10/20/19 1330 10/20/19 1330 Laboratory Laboratory Tests Test 10/20/19 13:38 10/20/19 13:30 Urine Color Yellow (YELLOW) Urine Clarity Clear (CLEAR) Urine pH 7 (5 - 7) Urine Specific [place] 1.015 (1.010-1.025) Urine Protein Negative (NEGATIVE) Urine Glucose (UA) Negative (NEGATIVE) Urine Ketones Negative (NEGATIVE) Urine Blood Negative (NEGATIVE) Urine Nitrite Negative (NEGATIVE) Urine Bilirubin Negative (NEGATIVE) Urine Urobilinogen 0.2 mg/dL (0.2 - 1) Urine Leukocyte Esterase Negative (NEGATIVE) Urine RBC None /HPF (0-5) Urine WBC None /HPF (0-5) Urine Epithelial Cells None /LPF (NONE) Urine Bacteria Rare /HPF (NONE) White Blood Count 6.73 x10e3/uL (4.8-10.8) Red Blood Count 5.70 x10e6/uL (4.3-5.7) Hemoglobin 16.6 g/dL (14.0-18.0) Hematocrit 49.6 % (38.2-49.6) Mean Corpuscular Volume 87.0 fL (81-99) Mean Corpuscular Hemoglobin 29.1 pg (28-32) Mean Corpuscular Hemoglobin Concent 33.5 g/dL (31-35) Red Cell Distribution Width 12.5 % (11.7-14.4) Platelet Count 216 x10e3/uL (140-360) Neutrophils (%) (Auto) 58.6 % (38.7-80.0) Lymphocytes (%) (Auto) 32.4 % (18.0-39.1) Monocytes (%) (Auto) 7.4 % (4.4-11.3) Eosinophils (%) (Auto) 0.7 % (0.0-6.0) Basophils (%) (Auto) 0.6 % (0.0-1.0) Neutrophils # (Auto) 3.9 (2.1-6.9) Lymphocytes # (Auto) 2.2 (1.0-3.2) Monocytes # (Auto) 0.5 (0.2-0.8) Eosinophils # (Auto) 0.1 (0.0-0.4) Basophils # (Auto) 0.0 (0.0-0.1) Absolute Immature Granulocyte (auto 0.02 x10e3/uL (0-0.1) Prothrombin Time 11.9 seconds (11.9-14.5) Prothromb Time International Ratio 0.84 Activated Partial Thromboplast Time 31.1 seconds (23.8-35.5) Sodium Level 140 mmol/L (136-145) Potassium Level 4.1 mmol/L (3.5-5.1) Chloride Level 101 mmol/L (98-107) Carbon Dioxide Level 27 mmol/L (22-29) Anion Gap 16.1 mmol/L (8-16) Blood Urea Nitrogen 13 mg/dL (7-26) Creatinine 1.03 mg/dL (0.72-1.25) Estimat Glomerular Filtration Rate > 60 ML/MIN (60-) BUN/Creatinine Ratio 13 (6-25) Glucose Level 113 mg/dL (74-118) Calcium Level 9.8 mg/dL (8.4-10.2) Magnesium Level 2.3 MG/DL (1.3-2.1) Total Bilirubin 1.1 mg/dL (0.2-1.2) Aspartate Amino Transf (AST/SGOT) 23 IU/L (5-34) Alanine Aminotransferase (ALT/SGPT) 28 IU/L (0-55) Alkaline Phosphatase 75 IU/L (40-150) Creatine Kinase 38 IU/L (30-200) Creatine Kinase MB 0.40 ng/mL (0-5.0) Troponin I 0.012 ng/mL (0-0.300) Total Protein 7.8 g/dL (6.5-8.1) Albumin 5.0 g/dL (3.5-5.0) Globulin 2.8 g/dL (2.3-3.5) Albumin/Globulin Ratio 1.8 (0.8-2.0) Lab results reviewed: Yes Imaging Imaging results reviewed: Yes Procedures 12 Lead ECG Interpretation ECG Interpretation : ECG: ECG 1 Area Field Manager: Interpreted by ED physician Date: Oct 20, 2019 Time: 14:00 Rhythm: sinus rhythm Rate: normal (79) QRS axis: normal ST segments normal: Yes T waves normal: Yes Clinical Impression: normal ECG Assessment & Plan Medical Decision Making MDM ORTHOSTATIC DIZZINESS, HEADACHE - CHECK CBC, CHEM, ECG, CARDIACS, CXR, CT BRAIN, UA - R/O DEHYDRATION, RENAL INSUFF, STEMI/NSTEMI, CEREBRAL BLEED, CVA, UTI Reassessment Reassessment PT IMPROVED WITH IVF'S, DC HOME, PUSH PO FLUIDS, MECLIZINE Assessment & Plan Final Impression: (1) Orthostatic dizziness (2) Dehydration Depart Disposition: HOME, SELF-CARE Last Vital Signs Date Time Temp Pulse Resp B/P (MAP) Pulse Ox O2 Delivery O2 Flow Rate FiO2 10/20/19 13:13 97.6 97 16 182/86 96 Nasal Cannula 2.0 Home Meds Active Scripts Azithromycin (Z-DARWIN) 250 Mg Tablet, 1 PKG PO DIRECTED, #1 PKG 0 Refills Prov:MAYANK ERNANDEZ [employer] 11/07/17 Cyclobenzaprine Hcl (FLEXERIL) 5 Mg Tablet, 5 MG PO Q8H PRN for PAIN, #15 TAB 0 Refills Prov:MAYANK ERNANDEZ [employer] 11/07/17 Medications in the ED Sodium Chloride 1,000 ml @ 0 mls/hr Q0M STAT IV ; Start 10/20/19 at 13:17; Stop 10/20/19 at 13:37; Status DC Meropenem 100 ml @ 100 mls/hr NOW ONCE IV ; Start 10/20/19 at 13:30; Stop 10/20/19 at 13:37; Status DC Sodium Chloride 1,000 ml @ 0 mls/hr Q0M STAT IV Last administered on 10/20/19at 14:41; Admin Dose 999 MLS/HR; Start 10/20/19 at 13:38; Stop 10/20/19 at 13:41; Status DC SVEN BOLAÑOS MD Oct 20, 2019 16:52
== END 2019-10-20 17:22 | disposition home or self-care (01) ==
LOC: ER 13:25
DX: R42 Dizziness and giddiness (principal); E86.0 Dehydration; R51 Headache; D86.9 Sarcoidosis, unspecified
CPT/HCPCS: 36415; 70450; 71045; 80053; 81001; 82550; 82553; 83735; 84484; 85025; 85610; 85730; 87086; 93005; 99284; J7030

== ENCOUNTER 2020-04-12 02:15 | Emergency (ER) | payer MEDICARE ==
[~2020-04-12] VITALS: Ht 170.2 cm; Wt 79.4 kg
[2020-04-12] MEDS ORDERED: MECLIZINE HCL 12.5 MG TAB PO ONE (02:30)
== END 2020-04-12 03:10 | disposition home or self-care (01) ==
LOC: ER 02:27
DX: R42 Dizziness and giddiness (principal); I10 Essential (primary) hypertension; D86.9 Sarcoidosis, unspecified; Z87.891 Personal history of nicotine dependence
CPT/HCPCS: 99283; J8597

== ENCOUNTER 2020-08-05 22:00 | Emergency (ER) | payer MEDICARE | END 2020-08-05 23:30 | disposition home or self-care (01) | LOC: ER 22:50 | DX: M54.2 Cervicalgia (principal); G44.209 Tension-type headache, unspecified, not intractable; I10 Essential (primary) hypertension | CPT/HCPCS: 70450; 72125; 99283 ==

== ENCOUNTER 2021-05-17 17:49 | Emergency (ER) | payer MEDICARE ==
[~2021-05-17] VITALS: Ht 170.2 cm; Wt 79.4 kg
[2021-05-17] MEDS ORDERED: MECLIZINE HCL 12.5 MG TAB PO ONE (18:15)
== END 2021-05-17 18:14 | disposition home or self-care (01) ==
LOC: ER 17:53
DX: R42 Dizziness and giddiness (principal); I10 Essential (primary) hypertension; D86.9 Sarcoidosis, unspecified; Z87.891 Personal history of nicotine dependence
CPT/HCPCS: 99282; J8597

== ENCOUNTER 2023-04-25 21:51 | Emergency (ER) | payer MEDICARE, OTHER ==
[~2023-04-25] VITALS: Ht 170.2 cm; Wt 76.2 kg
[2023-04-26] MEDS ORDERED: BENZONATATE200 MG PO (00:14)
[2023-04-26] MEDS ORDERED: AZITHROMYCIN250 MG PO (00:14)
[2023-04-26 00:26] VITALS: BP 138/84; PULSE 71; RESP 18; TEMP 98.6; O2SAT 99
== END 2023-04-26 00:18 | disposition home or self-care (01) ==
LOC: ER 22:03
DX: R05.9 Cough, unspecified (principal); J40 Bronchitis, not specified as acute or chronic; H92.03 Otalgia, bilateral; I10 Essential (primary) hypertension; Z11.52 Encounter for screening for COVID-19
CPT/HCPCS: 71045; 87400; 99283; U0002

== ENCOUNTER → 2023-05-25 | Day surgery (SDC) | payer OTHER ==
[2023-05-20 10:58] LABS: BASOPHILS # (AUTO) 0.1 (0.0-0.1); BASOPHILS % 0.9 % (0.0-1.0); EOSINOPHILS # (AUTO) 0.1 (0.0-0.4); EOSINOPHILS % 0.9 % (0.0-6.0); HEMATOCRIT 46.1 % (38.2-49.6); HEMOGLOBIN 15.9 g/dL (14.0-18.0); LYMPHOCYTES # (AUTO) 2.2 (1.0-3.2); LYMPHOCYTES % 33.3 % (18.0-39.1); MEAN CORPUSCULAR HEMOGLOBIN 30.5 pg (28-32); MEAN CORPUSCULAR HGB CONC 34.5 g/dL (31-35); MEAN CORPUSCULAR VOLUME 88.3 fL (81-99); MONOCYTES # (AUTO) 0.5 (0.2-0.8); MONOCYTES % 6.7 % (4.4-11.3); NEUTROPHILS # (AUTO) 3.9 (2.1-6.9); NEUTROPHILS % 57.8 % (38.7-80.0); PLATELET COUNT 172 x10e3/uL (140-360); RED BLOOD COUNT 5.22 x10e6/uL (4.3-5.7); RED CELL DISTRIBUTION WIDTH 12.6 % (11.7-14.4); WHITE BLOOD COUNT 6.69 x10e3/uL (4.8-10.8)
[~2023-05-25] MED LIST changes: +ACETAMINOPHEN/CODEINE 300MG - 30MG TAB ONE; +BENZONATATE200 MG PO; +DEXAMETHASONE SOD PHOS INJ 4 MG/ML SDV ONE; +FENTANYL CITRATE/PF 100MCG/2 ML INJ ONE; +FLOMAX0.4 MG PO; +IOPAMIDOL 610MG/1ML 300 MG/ML VIAL IV ONE; +LIDOCAINE HCL 2% LOCAL INJ 5 ML SDV VIAL INJ ONE; +MIDAZOLAM HCL 2 MG/2 ML VIAL ONE; +ONDANSETRON HCL INJ 2MG/ML 2ML 2 MG/ML VIAL ONE; +PROPOFOL IV EMULSION 10 MG/ML 20 ML VIAL ONE; +SEVOFLURANE INHAL SOLN 250 ML PEN BTL ONE; +ZESTRIL10 MG PO
[2023-05-25] MEDS: LACTATED RINGER'S 1,000 ML ONE (09:46)
[2023-05-25] MEDS: GENTAMICIN 80MG/NS 100 ML 200 ML IV ONE (09:46)
[2023-05-25] MEDS: LEVOFLOXACIN 500MG/D5W 100ML 100 ML IV ONE (09:46)
[2023-05-25] MEDS: FENTANYL CITRATE/PF 100MCG/2 ML INJ ONE (12:18)
[2023-05-25] MEDS: ACETAMINOPHEN/CODEINE 300MG - 30MG TAB PO ONE (13:00)
[2023-05-25 13:15] VITALS: BP 125/67; PULSE 84; RESP 16; O2SAT 98
== END | disposition home or self-care (01) ==
LOC: OR 08:43
PROVIDERS: ATTEND Urology
DX: R97.20 Elevated prostate specific antigen [PSA] (principal); C61 Malignant neoplasm of prostate; N40.1 Benign prostatic hyperplasia with lower urinary tract symptoms; R35.0 Frequency of micturition; R35.1 Nocturia; N35.812 Other bulbous urethral stricture, male; N32.89 Other specified disorders of bladder; I10 Essential (primary) hypertension; E78.5 Hyperlipidemia, unspecified; D86.9 Sarcoidosis, unspecified; Z88.0 Allergy status to penicillin; Z01.810 Encounter for preprocedural cardiovascular examination; Z01.812 Encounter for preprocedural laboratory examination; Z79.899 Other long term (current) drug therapy
CPT/HCPCS: 36415; 52281; 55700; 74420; 76872; 76998; 85025; 88305; 93005; C1758; J1100; J1580; J1956; J2001; J2250; J2405; J2704; J3010; J7121; Q9967; 88304

== ENCOUNTER 2023-12-20 09:59 | Inpatient (IN) | payer MEDICARE, OTHER ==
[2023-12-17 12:54] LABS: BASOPHILS # (AUTO) 0.1 (0.0-0.1); BASOPHILS % 0.8 % (0.0-1.0); EOSINOPHILS % 0.7 % (0.0-6.0); HEMATOCRIT 48.4 % (38.2-49.6); HEMOGLOBIN 15.4 g/dL (14.0-18.0); LYMPHOCYTES % 33.5 % (18.0-39.1); MEAN CORPUSCULAR HEMOGLOBIN 29.4 pg (28-32); MEAN CORPUSCULAR HGB CONC 31.8 g/dL (31-35); MEAN CORPUSCULAR VOLUME 92.5 fL (81-99); MONOCYTES # (AUTO) 0.5 (0.2-0.8); MONOCYTES % 7.6 % (4.4-11.3); NEUTROPHILS # (AUTO) 3.5 (2.1-6.9); NEUTROPHILS % 57.2 % (38.7-80.0); PLATELET COUNT 175 x10e3/uL (140-360); RED BLOOD COUNT 5.23 x10e6/uL (4.3-5.7); RED CELL DISTRIBUTION WIDTH 12.9 % (11.7-14.4); WHITE BLOOD COUNT 6.03 x10e3/uL (4.8-10.8)
[~2023-12-20] VITALS: Ht 170.2 cm; Wt 71.2 kg
[~2023-12-20 09:59] MED LIST changes: -ACETAMINOPHEN/CODEINE 300MG - 30MG TAB ONE; -DEXAMETHASONE SOD PHOS INJ 4 MG/ML SDV ONE; -FENTANYL CITRATE/PF 100MCG/2 ML INJ ONE; -IOPAMIDOL 610MG/1ML 300 MG/ML VIAL IV ONE; -LIDOCAINE HCL 2% LOCAL INJ 5 ML SDV VIAL INJ ONE; -MIDAZOLAM HCL 2 MG/2 ML VIAL ONE; -ONDANSETRON HCL INJ 2MG/ML 2ML 2 MG/ML VIAL ONE; -PROPOFOL IV EMULSION 10 MG/ML 20 ML VIAL ONE; -SEVOFLURANE INHAL SOLN 250 ML PEN BTL ONE; +prunelax PO
[2023-12-20] MEDS: LACTATED RINGER'S 1,000 ML ONE (10:59)
[2023-12-20] MEDS ORDERED: ACETAMINOPHEN 1000 MG/100 ML 100 ML IV ONE (11:59)
[2023-12-20] MEDS ORDERED: DIPHENHYDRAMINE HCL INJ 50 MG/ML VIAL IM PRN (14:45)
[2023-12-20] MEDS ORDERED: ACETAMINOPHEN 1000 MG/100 ML IV PRN (14:45)
[2023-12-20] MEDS ORDERED: ONDANSETRON HCL INJ 2MG/ML 2ML 2 MG/ML VIAL IV PRN (14:45)
[2023-12-20] MEDS ORDERED: NALOXONE HCL INJ 0.4 MG/ML AMP IV PRN (14:45)
[2023-12-20] MEDS: HYDROMORPHONE 1MG/1ML INJ ONE (14:49)
[2023-12-20 15:14] LABS: BASOPHILS % 0.4 % (0.0-1.0); EOSINOPHILS % 0.3 % (0.0-6.0); HEMATOCRIT 43.2 % (38.2-49.6); LYMPHOCYTES # (AUTO) 1.3 (1.0-3.2); LYMPHOCYTES % 18.4 % (18.0-39.1); MEAN CORPUSCULAR HGB CONC 32.4 g/dL (31-35); MEAN CORPUSCULAR VOLUME 92.5 fL (81-99); MONOCYTES # (AUTO) 0.2 (0.2-0.8); MONOCYTES % 2.8 % (4.4-11.3); NEUTROPHILS # (AUTO) 5.5 (2.1-6.9); NEUTROPHILS % 77.7 % (38.7-80.0); PLATELET COUNT 149 x10e3/uL (140-360); RED BLOOD COUNT 4.67 x10e6/uL (4.3-5.7); RED CELL DISTRIBUTION WIDTH 12.9 % (11.7-14.4); WHITE BLOOD COUNT 7.02 x10e3/uL (4.8-10.8)
[2023-12-20] MEDS: MORPHINE SULFATE 1 MG/ML 30ML PCA IV PRN (15:25)
[2023-12-20 16:00] VITALS: BP 150/71; PULSE 78; RESP 21; TEMP 97.6; O2SAT 99
[2023-12-20 16:28] VITALS: PULSE 87; RESP 18; O2SAT 96
[2023-12-20 16:31] LABS: ANION GAP 16.4 mmol/L (8-16); CALCIUM 8.5 mg/dL (8.4-10.2); CREATININE, SERUM 0.87 mg/dL (0.72-1.25); POTASSIUM 3.4 mmol/L (3.5-5.1)
[2023-12-20] MEDS: D5.45%NS/KCL 20MEQ 1,000 ML IV SCH (17:50)
[2023-12-20] MEDS: LEVOFLOXACIN 500MG/D5W 100ML 100 ML IV ONE (18:33)
[2023-12-20] MEDS: BUPIVACAINE LIPOSOME/PF 266 MG/20 ML IJ ONE (18:33)
[2023-12-20] MEDS: LEVOFLOXACIN 250MG/D5W 50ML 50 ML ONE (18:33)
[2023-12-20 20:00] VITALS: BP 152/75; PULSE 85; RESP 18; TEMP 98.1; O2SAT 99
[2023-12-20 21:00] VITALS: BP 152/75; PULSE 85; RESP 18; TEMP 98.1; O2SAT 99
[2023-12-21] VITALS (8 sets, daily range): BP systolic 124–140; BP diastolic 62–68; PULSE 68–89; RESP 16–19; TEMP 97.3–98.8; O2SAT 95–100
[2023-12-21 05:39] LABS: BASOPHILS % 0.1 % (0.0-1.0); EOSINOPHILS % 0.1 % (0.0-6.0); HEMATOCRIT 44.7 % (38.2-49.6); HEMOGLOBIN 14.6 g/dL (14.0-18.0); LYMPHOCYTES # (AUTO) 1.7 (1.0-3.2); MEAN CORPUSCULAR HEMOGLOBIN 30.2 pg (28-32); MEAN CORPUSCULAR HGB CONC 32.7 g/dL (31-35); MEAN CORPUSCULAR VOLUME 92.5 fL (81-99); MONOCYTES # (AUTO) 1.2 (0.2-0.8); MONOCYTES % 8.6 % (4.4-11.3); NEUTROPHILS % 78.9 % (38.7-80.0); PLATELET COUNT 159 x10e3/uL (140-360); RED BLOOD COUNT 4.83 x10e6/uL (4.3-5.7); RED CELL DISTRIBUTION WIDTH 12.6 % (11.7-14.4); WHITE BLOOD COUNT 13.98 x10e3/uL (4.8-10.8)
[2023-12-21 06:18] LABS: ANION GAP 13.4 mmol/L (8-16); CALCIUM 8.8 mg/dL (8.4-10.2); CREATININE, SERUM 0.94 mg/dL (0.72-1.25); POTASSIUM 4.4 mmol/L (3.5-5.1)
[2023-12-21] MEDS: BISACODYL 10 MG SUPP PR ONE (09:17)
[2023-12-21] MEDS: LEVOFLOXACIN 500MG/D5W 100ML 100 ML IV SCH (11:46)
[2023-12-22] VITALS (7 sets, daily range): BP systolic 133–147; BP diastolic 62–71; PULSE 79–98; RESP 16–21; TEMP 97.9–98.6; O2SAT 95–100
[2023-12-22 05:45] LABS: BASOPHILS % 0.4 % (0.0-1.0); EOSINOPHILS % 0.4 % (0.0-6.0); HEMATOCRIT 45.8 % (38.2-49.6); HEMOGLOBIN 14.6 g/dL (14.0-18.0); LYMPHOCYTES % 19.6 % (18.0-39.1); MEAN CORPUSCULAR HEMOGLOBIN 29.6 pg (28-32); MEAN CORPUSCULAR HGB CONC 31.9 g/dL (31-35); MEAN CORPUSCULAR VOLUME 92.9 fL (81-99); MONOCYTES # (AUTO) 0.9 (0.2-0.8); NEUTROPHILS # (AUTO) 7.2 (2.1-6.9); NEUTROPHILS % 70.3 % (38.7-80.0); PLATELET COUNT 162 x10e3/uL (140-360); RED BLOOD COUNT 4.93 x10e6/uL (4.3-5.7); RED CELL DISTRIBUTION WIDTH 12.9 % (11.7-14.4); WHITE BLOOD COUNT 10.27 x10e3/uL (4.8-10.8)
[2023-12-22 06:07] LABS: ANION GAP 12.7 mmol/L (8-16); CREATININE, SERUM 0.88 mg/dL (0.72-1.25); POTASSIUM 3.7 mmol/L (3.5-5.1)
[2023-12-22] MEDS: DOCUSATE SODIUM LIQD 100 MG/10 ML UDC PO SCH (20:42)
[2023-12-23] VITALS (10 sets, daily range): BP systolic 132–156; BP diastolic 64–82; PULSE 83–105; RESP 18–21; TEMP 97.8–99.1; O2SAT 92–97
[2023-12-23 05:31] LABS: BASOPHILS % 0.4 % (0.0-1.0); EOSINOPHILS # (AUTO) 0.1 (0.0-0.4); EOSINOPHILS % 0.6 % (0.0-6.0); HEMATOCRIT 46.1 % (38.2-49.6); HEMOGLOBIN 15.5 g/dL (14.0-18.0); LYMPHOCYTES # (AUTO) 1.6 (1.0-3.2); LYMPHOCYTES % 15.9 % (18.0-39.1); MEAN CORPUSCULAR HGB CONC 33.6 g/dL (31-35); MEAN CORPUSCULAR VOLUME 89.3 fL (81-99); MONOCYTES % 9.8 % (4.4-11.3); NEUTROPHILS # (AUTO) 7.4 (2.1-6.9); NEUTROPHILS % 72.9 % (38.7-80.0); PLATELET COUNT 185 x10e3/uL (140-360); RED BLOOD COUNT 5.16 x10e6/uL (4.3-5.7); RED CELL DISTRIBUTION WIDTH 12.6 % (11.7-14.4); WHITE BLOOD COUNT 10.14 x10e3/uL (4.8-10.8)
[2023-12-23 05:51] LABS: ANION GAP 13.3 mmol/L (8-16); CREATININE, SERUM 0.99 mg/dL (0.72-1.25)
[2023-12-23 05:52] LABS: POTASSIUM 3.3 mmol/L (3.5-5.1)
[2023-12-23] MEDS ORDERED: BISACODYL 10 MG SUPP PR PRN (10:00)
[2023-12-23] MEDS: BISACODYL 10 MG SUPP PR ONE (12:10)
[2023-12-23] MEDS: SENNA-S TABLET PO SCH (17:55)
[2023-12-23] MEDS: ACETAMINOPHEN/CODEINE 300MG - 30MG TAB PO PRN (17:57)
[2023-12-24] VITALS (10 sets, daily range): BP systolic 131–162; BP diastolic 63–79; PULSE 80–95; RESP 16–21; TEMP 98.4–99; O2SAT 96–100
[2023-12-24 05:26] LABS: BASOPHILS % 0.4 % (0.0-1.0); EOSINOPHILS # (AUTO) 0.1 (0.0-0.4); EOSINOPHILS % 0.9 % (0.0-6.0); HEMATOCRIT 44.5 % (38.2-49.6); HEMOGLOBIN 15.1 g/dL (14.0-18.0); LYMPHOCYTES % 20.5 % (18.0-39.1); MEAN CORPUSCULAR HEMOGLOBIN 29.8 pg (28-32); MEAN CORPUSCULAR HGB CONC 33.9 g/dL (31-35); MEAN CORPUSCULAR VOLUME 87.9 fL (81-99); MONOCYTES # (AUTO) 0.9 (0.2-0.8); MONOCYTES % 9.4 % (4.4-11.3); NEUTROPHILS # (AUTO) 6.6 (2.1-6.9); NEUTROPHILS % 68.4 % (38.7-80.0); PLATELET COUNT 186 x10e3/uL (140-360); RED BLOOD COUNT 5.06 x10e6/uL (4.3-5.7); RED CELL DISTRIBUTION WIDTH 12.6 % (11.7-14.4); WHITE BLOOD COUNT 9.64 x10e3/uL (4.8-10.8)
[2023-12-24 05:46] LABS: ANION GAP 11.4 mmol/L (8-16); CALCIUM 8.8 mg/dL (8.4-10.2); CREATININE, SERUM 0.83 mg/dL (0.72-1.25)
[2023-12-24 05:47] LABS: POTASSIUM 3.4 mmol/L (3.5-5.1)
[2023-12-25] VITALS (8 sets, daily range): BP systolic 131–147; BP diastolic 64–79; PULSE 74–90; RESP 15–18; TEMP 98.1–98.6; O2SAT 95–100
[2023-12-26] VITALS (9 sets, daily range): BP systolic 127–152; BP diastolic 68–71; PULSE 71–88; RESP 17–18; TEMP 98–99.2; O2SAT 96–100
[2023-12-27] VITALS (8 sets, daily range): BP systolic 134–153; BP diastolic 62–76; PULSE 66–96; RESP 16–20; TEMP 98.3–99.3; O2SAT 98–100
[2023-12-27 05:36] LABS: BASOPHILS # (AUTO) 0.1 (0.0-0.1); BASOPHILS % 0.7 % (0.0-1.0); EOSINOPHILS # (AUTO) 0.1 (0.0-0.4); HEMATOCRIT 37.2 % (38.2-49.6); HEMOGLOBIN 12.6 g/dL (14.0-18.0); LYMPHOCYTES # (AUTO) 2.3 (1.0-3.2); LYMPHOCYTES % 32.9 % (18.0-39.1); MEAN CORPUSCULAR HEMOGLOBIN 29.8 pg (28-32); MEAN CORPUSCULAR HGB CONC 33.9 g/dL (31-35); MEAN CORPUSCULAR VOLUME 87.9 fL (81-99); MONOCYTES # (AUTO) 0.8 (0.2-0.8); MONOCYTES % 11.4 % (4.4-11.3); NEUTROPHILS # (AUTO) 3.7 (2.1-6.9); NEUTROPHILS % 53.6 % (38.7-80.0); PLATELET COUNT 187 x10e3/uL (140-360); RED BLOOD COUNT 4.23 x10e6/uL (4.3-5.7); RED CELL DISTRIBUTION WIDTH 12.7 % (11.7-14.4); WHITE BLOOD COUNT 6.91 x10e3/uL (4.8-10.8)
[2023-12-27 05:56] LABS: ANION GAP 11.7 mmol/L (8-16); CALCIUM 8.7 mg/dL (8.4-10.2); CREATININE, SERUM 0.87 mg/dL (0.72-1.25); POTASSIUM 3.7 mmol/L (3.5-5.1)
[2023-12-27] MEDS ORDERED: SENNA S TABLET1 EACH PO (22:00)
[2023-12-27] MEDS ORDERED: TYLENOL #3 (22:48)
== END 2023-12-27 23:34 | disposition home or self-care (01) | DRG 716 ==
LOC: OR 09:59 → PACU V 14:28 → MED/SURG 15:45
PROVIDERS: ADMIT Internal Medicine; ATTEND Internal Medicine
PROC: 0T9B70Z Drainage of Bladder with Drainage Device, Via Natural or Artificial Opening (ICD-10-PCS; 2023-12-20)
PROC: 0TJB8ZZ Inspection of Bladder, Via Natural or Artificial Opening Endoscopic (ICD-10-PCS; 2023-12-20)
PROC: 07BC0ZX Excision of Pelvis Lymphatic, Open Approach, Diagnostic (ICD-10-PCS; principal; 2023-12-20 12:49)
DX: C61 Malignant neoplasm of prostate (principal); I10 Essential (primary) hypertension; R59.1 Generalized enlarged lymph nodes; N40.1 Benign prostatic hyperplasia with lower urinary tract symptoms; R35.0 Frequency of micturition; R35.1 Nocturia; R31.9 Hematuria, unspecified; M54.12 Radiculopathy, cervical region; Z88.0 Allergy status to penicillin; Z87.891 Personal history of nicotine dependence
CPT/HCPCS: 36415; 71046; 80048; 83735; 85025; 88304; 88307; 93005; 94799; 99252; J1171; J1956; J2270